=== PATIENT | male | born 1945 | race Caucasian/White ===

== ENCOUNTER 2018-12-20 20:35 | Inpatient (IN) ==
[2018-12-20 21:52] LABS: INR 1.07; PROTIME 14.8 Seconds (11.0-16.0)
[2018-12-20 21:53] LABS: PTT 38.6 Seconds (22.3-41.8)
[2018-12-20] MEDS ORDERED: ROCEPHIN 1 GM in NS 50 ML IV ONE (21:53)
[2018-12-20] MEDS ORDERED: NS 1,000 ML IV ONE ×2 (21:54→22:30)
--- NOTE | 2018-12-20 21:55 | Diag Imaging Result Doc PS360 ---
EXAM: CHEST-1 VIEW 12/20/2018 HISTORY: sob TECHNIQUE: AP portable at 2137 COMMENT: There is alveolar opacity throughout the right lower lobe with possible loculated pleural fluid collections. The heart size and pulmonary vascularity appear to be within normal limits and there are no previous studies. IMPRESSION: Right lower lobe pneumonia and pleural effusion. Electronically signed by Terrell Fuentes 12/20/2018 9:52 PM
[2018-12-20 21:58] LABS: BASO# 0.01 X1000 (0.0-0.2); BASO% 0.1 % (0.0-0.8); HEMATOCRIT 31.3 % (42.0-52.0); LYMPH# 0.51 X1000 (1.2-3.4); LYMPH% 3.4 % (20.5-51.1); MCH 26.6 PG (27-31); MCHC 31.9 g/dL (33-37); MCV 83.2 FL (81-99); MONO% 3.3 % (1.7-9.3); MPV 9.5 FL (7.4-10.4); NEUT# 14.12 X1000 (1.4-6.5); NEUT% 93.2 % (42.2-75.2); PLT 432 X1000 (130-400); RBC 3.76 XMIL (4.7-6.1); RDW 18.2 % (11.5-14.5); WBC 15.14 X1000 (4.8-10.8)
[2018-12-20 22:03] LABS: ALB/GLOB RATIO 0.9; ALBUMIN 3.6 g/dL (3.5-5.0); CREATININE 1.5 mg/dL (0.7-1.2); TOTAL BILIRUBIN 0.5 mg/dL (0.20-1.00); TOTAL PROTEIN 7.6 g/dL (6.3-8.3)
[2018-12-20 22:35] LABS: CK INDEX 0.4 (0.0-2.5); CK-MB 6.9 ng/mL (0.0-5.0)
[2018-12-20] MEDS ORDERED: VANCOMYCIN 1 GM/NS 1 GM/250 ML IVPB IV ONE (23:28)
--- NOTE | 2018-12-21 00:14 | HISTORY AND PHYSICAL ---
PRIMARY CARE PHYSICIAN: Dr. Araujo. CHIEF COMPLAINT: Shortness of breath and cough for 2 days. HISTORY: A 73-year-old male with a history of hypertension, hyperlipidemia, dementia and COPD, resides at [facility]. Was brought to the emergency department due to patient having shortness of breath, coughing and worsening confusion for the past several days. The patient was evaluated in the emergency department. He had imaging done which did show right lower lobe pneumonia with effusion. Due to his presenting symptoms, it was thought that he would need admission for further management. At the time of my examination, he denied any headache, fever, chills, chest pain, hemoptysis, melena, or any weight changes but complained of cough and shortness of breath. PAST MEDICAL HISTORY: Includes hypertension, hyperlipidemia, dementia, COPD. PAST SURGICAL HISTORY: Bilateral knee replacement, left partial pneumonectomy, hernia repair. ALLERGIES: Chantix. CURRENT MEDICATIONS: Include Namenda 10 mg p.o. b.i.d., Aricept 10 mg p.o. daily, Effexor XR 225 mg p.o. daily, Toprol-XL 25 mg p.o. daily, Lipitor 40 mg p.o. at bedtime, lisinopril 20 mg p.o. daily, Topamax 25 mg p.o. b.i.d. SOCIAL HISTORY: He is a former smoker. History of alcohol abuse in the past. History of illicit drug use in the past. FAMILY HISTORY: No history of coronary disease. REVIEW OF SYSTEMS: Fourteen point review of systems is as in HPI. Other systems negative. PHYSICAL EXAMINATION: GENERAL: Cooperative, friendly male. He is resting more comfortably now. VITAL SIGNS: Temperature 101 degrees, pulse 90, respirations 30, blood pressure 111/67. HEENT: Atraumatic, normocephalic. Extraocular movements intact. PERRLA. NECK: No masses. CHEST: Bibasilar rales. CARDIOVASCULAR: Regular rate and rhythm. ABDOMEN: Soft. Positive bowel sounds. EXTREMITIES: No edema. NEURO: He is awake, alert, oriented x1. : No bladder distention. SKIN: Warm. LABORATORIES AND STUDIES: WBCs 15.14, hemoglobin 10.0, hematocrit 31.3, platelets 432,000. Sodium 135, potassium 4.0, chloride 96, CO2 24, BUN is 27, creatinine is 1.5, glucose is 173, plasma lactate is 2.4. ASSESSMENT: A 73-year-old male with a history of hypertension, hyperlipidemia, dementia, chronic obstructive pulmonary disease, presented to the emergency department with several days history of worsening shortness of breath and cough. He was evaluated in the emergency department. He had imaging done which was consistent with pneumonia. Subsequently, he will need admission for further management. 1. Right lower lobe pneumonia. 2. Acute kidney injury. 3. Hypertension. 4. Chronic obstructive pulmonary disease. 5. Dementia. PLAN: 1. We will admit patient to medical floor with telemetry. 2. We will check blood cultures. Start patient on IV antibiotics. 3. Continue gentle hydration. Monitor renal function. 4. Monitor blood pressure closely. 5. Continue with DuoNeb p.r.n. 6. We will restart other home medications. 7. Put patient on DVT prophylaxis SCD. 8. We will continue to follow and reassess and make further recommendation based on patient's clinical course. cc: Merlin Beltran MD
[2018-12-21] MEDS ORDERED: ZOFRAN IV PRN (01:34)
[2018-12-21] MEDS ORDERED: ROCEPHIN 1 GM in NS 50 ML IV SCH (01:34)
[2018-12-21] MEDS ORDERED: ZITHROMAX 500 MG/NS 500 MG/250 ML IVPB IV SCH (01:34)
--- NOTE | 2018-12-21 01:38 | PROVIDER DOCUMENTATION ---
This chart was entered by Lis Burrell Scribe, acting as scribe for Isai Urbina MD. HPI-General Adult - General Chief Complaint: Shortness of Breath Stated Complaint: general Time Seen by Provider: 12/20/18 21:30 Source: family - History of Present Illness -Gen Adult Nature of Presenting Problems: 73 yom presents to ED Daughter by EMS c/o of SOB and hard time ambulating for a few days according to pt daughter and [facility] pt resides.Daughter states pt has seemed off balance since this morning and pt statrted a new med for Parkinsons recently. Pt has a hx of COPD, GERD, Tuberculosis, Dementia. Pt has hx of smoking but quit 6 mnth ago. Review of Systems - Adult - REVIEW OF SYSTEMS - ADULT ROS:: ROS per family Constitutional: reports: see HPI, fever, fatique. denies: chills Respiratory: reports: see HPI, shortness of breath Musculoskeletal: reports: see HPI, muscle weakness Psychiatric: reports: see HPI, other (confused) Past History - Adult - PAST MEDICAL HISTORY-ADULT Review of Records: reports: Old Records Reviewed, Nursing Assessment Review, Medications Reviewed Major Childhood Illnesses: reports: denies history Cardiovascular: reports: denies history Respiratory: reports: COPD, tuberculosis Gastrointestinal: reports: GERD Obstetrical/Gynecological: reports: denies history Genitourinary: reports: denies history Musculoskeletal: reports: denies history Neurological: reports: Parkinson's Endocrine/Immune: reports: denies history Other Conditions: reports: denies history - IMMUNIZATION STATUS Childhood Immunizations: See Nurse Assessment Flu Vaccine: See Nurse Assessment - FAMILY HISTORY Family History: reviewed, not pertinent - SOCIAL HISTORY Smoking: quit greater than 1 year Substance Use: none presently/history of abuse Living Situation: care facility Physical Exam-General - PHYSICAL EXAM-ADULT Initial Vital Signs Reviewed: Yes - CONSTITUTIONAL General Appearance: alert, slow to respond - EYES Eyes: PERRL/EOMI, pink conjunctivae - HEAD, EARS, NOSE, MOUTH & THROAT HENMT: normocephalic/atraumatic. negative: moist mucous membranes - NECK Neck: non-tender, full range of motion, supple, normal inspection. negative: Brudzinski's sign, carotid bruit - RESPIRATORY Respiratory: chest non-tender, decreased breath sounds (right lower side). negative: crackles, rales, rhonchi - CARDIOVASCULAR Cardiovascular: normal peripheral pulses, other (distant heart sounds) - GASTROINTESTINAL (ABDOMEN) Abdominal Exam: normal bowel sounds, non tender, soft. negative: rigid, rebound , tenderness - LYMPHATIC Lymphatic: no adenopathy. negative: axilla node tender, cervical node tenderness - MUSCULOSKELETAL Back Exam: normal inspection, no CVA tenderness, no vertebral tenderness. negative: ecchymosis - SKIN Integumentary: normal color, normal turgor, warm/dry - PSYCHIATRIC Psych/Mental Status: other (alert and oriented to self) Progress - PLAN OF CARE/RESULTS Progress/Plan/Lab Results: Vital Signs - 8 hr 12/20/18 20:56 Temperature 101 F H Pulse Rate 90 Respiratory Rate 30 H Blood Pressure 111/67 O2 Sat by Pulse Oximetry 91 L Orders Category Date Time Status Cardiac Monitoring DIRECTED Care 12/20/18 21:28 Active IV Insertion ORDERED Care 12/20/18 21:28 Completed Notify MD of + Sepsis Screen NOW Care 12/20/18 21:28 Active Notify Physician As Ordered Care 12/20/18 21:28 Active CHEST-1 VIEW [RAD] Stat Exams 12/20/18 21:28 Ordered BLOOD CULTURE [BLDCUL] Stat Lab 12/20/18 21:33 Ordered CBC WITH DIFF [HEME] Stat Lab 12/20/18 21:26 Received CK PROFILE [SP CHEM] Stat Lab 12/20/18 21:26 Received COMPREHENSIVE METABOLIC PANEL [CHEM] Stat Lab 12/20/18 21:26 Received Flu Swab [INFLUENZA SCREEN A/B] Stat Lab 12/20/18 21:27 Uncollected LACTATE, PLASMA [CHEM] Lab 12/20/18 21:34 Ordered LACTATE, PLASMA [CHEM] Lab 12/21/18 00:30 Uncollected LACTATE, PLASMA [CHEM] Lab 12/21/18 03:30 Uncollected PROTIME WITH INR [COAG] Stat Lab 12/20/18 21:26 Received PTT [COAG] Stat Lab 12/20/18 21:26 Received TROPONIN T Stat Lab 12/20/18 21:26 Received URINALYSIS W/POSS RFLX CULT [URINALYSIS] Stat Lab 12/20/18 21:28 Uncollected Oxygen Device Stat Oth 12/20/18 21:28 Completed Result Diagrams: 12/20/18 21:26 12/20/18 21:26 - EKG 1 Time of EKG reading by physician:: 22:03 EKG Read and Signed by:: Isai Chen EKG Interpretation (*Must complete 3 of following elements*): Abnormal Rate: 92 Rhythm: sinus QRS: LVH - CONSULTS/PCP/HOSPITALIST Notification #1 *Consult/PCP/Hospitalist*: Dr. Merlin beltran Time Discussed: 22:19 Consult Disposition: Admit (Hx, PE, DX discussed with Dr. Beltran. accepted.) Departure - Departure Date of Disposition Decision: 12/20/18 Time of Disposition Decision: 22:15 DIAGNOSIS: Pneumonia Qualifiers: Pneumonia type: due to unspecified organism Laterality: right Lung location: lower lobe of lung Qualified Code(s): J18.1 - Lobar pneumonia, unspecified organism Sepsis Qualifiers: Sepsis type: sepsis due to unspecified organism Qualified Code(s): A41.9 - Sepsis, unspecified organism Altered mental status Qualifiers: Altered mental status type: unspecified Qualified Code(s): R41.82 - Altered mental status, unspecified Disposition: ADMITTED INPATIENT 09 Certified Medical Emergency: Emergent Condition: Serious Referrals and Follow-Ups: Trisha Araujo MD [Primary Care Provider] - - Critical Care Note This patient required my direct & personal management of CC.: No Attestation - Physician/ ADRIANE Attestation Patient care was provided by Advanced Practice Provider:: No The physician spent face to face time with patient:: Yes Advanced Practice Provider documentation review:: Supervising physician onsite and consulted in the evaluation and care of this patient. The physician did have a face to face encounter with the patient. This chart was documented by the indicated scribe, (Lis Burrell Scribe) and accurately reflects the services I performed and decisions made by me, Isai Urbina MD, as attested by the provider's signature.
[2018-12-21] MEDS: NS 1,000 ML IV SCH ×2 (02:20→21:17)
[2018-12-21] MEDS: DUONEB (A & A) INH SCH ×6 (04:29→23:42)
[2018-12-21 04:58] LABS: BASO# 0.01 X1000 (0.0-0.2); BASO% 0.1 % (0.0-0.8); HEMATOCRIT 30.3 % (42.0-52.0); HEMOGLOBIN 9.5 g/dL (14.0-18.0); IMM GRAN# 0.04 X1000 (0.0-0.04); IMM GRAN% 0.3 % (0.0-0.5); LYMPH# 0.71 X1000 (1.2-3.4); LYMPH% 4.9 % (20.5-51.1); MCH 26.2 PG (27-31); MCHC 31.4 g/dL (33-37); MCV 83.5 FL (81-99); MONO# 0.61 X1000 (0.11-0.59); MONO% 4.2 % (1.7-9.3); MPV 8.9 FL (7.4-10.4); NEUT# 12.99 X1000 (1.4-6.5); NEUT% 90.5 % (42.2-75.2); PLT 395 X1000 (130-400); RBC 3.63 XMIL (4.7-6.1); RDW 18.2 % (11.5-14.5); WBC 14.36 X1000 (4.8-10.8)
[2018-12-21 05:19] LABS: CALCIUM 7.4 mg/dL (8.8-10.2); CREATININE 1.2 mg/dL (0.7-1.2); POTASSIUM 3.4 mmol/L (3.5-5.1)
[2018-12-21 05:26] LABS: LYMPHS 5 % (21-51); MONO 3 % (1-9); SEGS 92 % (42-75)
--- NOTE | 2018-12-21 06:19 | Diag Imaging Result Doc PS360 ---
CT HEAD W/O CONTRAST - 12/20/2018 INDICATION: AMS COMPARISON: None FINDINGS: The ventricles and sulci are normal in size and contour. No intracranial mass or hemorrhage. The skull is intact. The sinuses mastoids and middle ears are clear. IMPRESSION: Negative exam. This exam was performed using automated exposure control, adjustment of mA or kV according to patient size, and/or use of iterative reconstruction technique Electronically signed by Devang Gaona 12/21/2018 6:16 AM
--- NOTE | 2018-12-21 08:51 | EKG Report ---
Test Performed on : 12/20/2018 9:15:44 PM Test Reason : ED. NO EKG ORDER FOR MUSE Blood Pressure : / mmHG Vent. Rate : 092 BPM Atrial Rate : 092 BPM P-R Int : 196 ms QRS Dur : 082 ms QT Int : 360 ms P-R-T Axes : 064 033 029 degrees QTc Int : 445 ms Normal sinus rhythm. Voltage criteria for left ventricular hypertrophy Abnormal ECG No previous ECGs available Unconfirmed Result
[2018-12-21] MEDS: EFFEXOR XR PO SCH (08:58)
[2018-12-21] MEDS: ARICEPT PO SCH (08:58)
[2018-12-21] MEDS: PRINIVIL PO SCH (08:59)
[2018-12-21] MEDS: TOPROL XL PO SCH (08:59)
[2018-12-21] MEDS: NAMENDA PO SCH ×2 (08:59→20:17)
[2018-12-21] MEDS: THERA M PLUS PO SCH (08:59)
[2018-12-21] MEDS: TOPAMAX PO SCH ×2 (08:59→20:17)
[2018-12-21 11:52] LABS: URINE SOURCE CATH
[2018-12-21 11:56] LABS: BILIRUBIN URINE NEGATIVE (NEGATIVE); BLOOD URINE NEGATIVE (NEGATIVE); COLOR YELLOW; GLUCOSE URINE NEGATIVE (NEGATIVE); KETONE URINE NEGATIVE (NEGATIVE); LEUKOCYTES URINE NEGATIVE (NEGATIVE); NITRITE URINE NEGATIVE (NEGATIVE); PH URINE 5.5; PROTEIN URINE 30 mg/dL (NEGATIVE); SP GRAVITY URINE 1.017; TURBIDITY URINE CLEAR (CLEAR); UROBILINOGEN URINE NORMAL (NORMAL)
[2018-12-21 11:57] LABS: UR EPITHELIAL CELLS <10 /HPF (<10); URINE BACTERIA NEGATIVE /HPF; URINE RBC <10 /HPF (<10); URINE WBC <10 /HPF (<10)
[2018-12-21 12:55] LABS: AGAP 12; ALB/GLOB RATIO 0.7; ALBUMIN 2.8 g/dL (3.5-5.0); ALKALINE PHOSPHATASE 77 U/L (32-122); BUN 22 mg/dL (8-22); CALCIUM 8.8 mg/dL (8.8-10.2); CHLORIDE 101 mmol/L (98-107); CK PROFILE 1131 U/L (24-204); COSMO 277; CREATININE 1.1 mg/dL (0.7-1.2); ESTIMATED GFR > 60; GLUCOSE 199 mg/dL (70-104); GOT 39 U/L (10-34); GPT 14 U/L (10-44); POTASSIUM 3.4 mmol/L (3.5-5.1); SODIUM 134 mmol/L (136-145); TCO2 21 mmol/L (25-35); TOTAL BILIRUBIN 0.43 mg/dL (0.20-1.00); TOTAL PROTEIN 6.6 g/dL (6.3-8.3)
[2018-12-21] MEDS ORDERED: TYLENOL PO SCH (13:00)
[2018-12-21 13:08] LABS: CK INDEX 0.3 (0.0-2.5); CK-MB 3.22 ng/mL (0.0-5.0); INR 1.24; PROTIME 16.6 Seconds (11.0-16.0)
[2018-12-21 13:09] LABS: PTT 37.3 Seconds (22.3-41.8)
[2018-12-21] MEDS ORDERED: ZYVOX 600 MG/D5W 600 MG/300 ML IVPB IV ONE (13:12)
[2018-12-21 13:18] LABS: BASO# 0.01 X1000 (0.0-0.2); BASO% 0.1 % (0.0-0.8); HEMOGLOBIN 10.1 g/dL (14.0-18.0); IMM GRAN# 0.03 X1000 (0.0-0.04); IMM GRAN% 0.2 % (0.0-0.5); LYMPH# 0.43 X1000 (1.2-3.4); LYMPH% 3.3 % (20.5-51.1); MCH 26.1 PG (27-31); MCHC 31.6 g/dL (33-37); MCV 82.7 FL (81-99); MONO# 0.56 X1000 (0.11-0.59); MONO% 4.3 % (1.7-9.3); MPV 9.4 FL (7.4-10.4); NEUT# 12.13 X1000 (1.4-6.5); NEUT% 92.1 % (42.2-75.2); PLT 463 X1000 (130-400); RBC 3.87 XMIL (4.7-6.1); RDW 18.1 % (11.5-14.5); WBC 13.16 X1000 (4.8-10.8)
--- NOTE | 2018-12-21 13:29 | PROGRESS NOTE ---
DATE: 12/21/2018 SUBJECTIVE: The patient is resting in bed, not in any obvious distress. OBJECTIVE: Vital Signs: Temperature is 99.7 degrees, pulse is 110, respiratory rate is 27, blood pressure is 160/93, O2 saturation is 88%. HEENT: Head is atraumatic and normocephalic. Cardiovascular System: S1 and S2. Respiratory System: He has evidence of good air entry bilaterally. Abdomen: Soft, nontender. No masses felt. Extremities: No evidence of edema. Central Nervous System: No obvious focal deficits noted. Labs: WBCs 14.36, hematocrit is 30.3, platelet count of 395,000. Sodium is 134, potassium is 3.4, chloride is 101, bicarb 21, BUN is 22, creatinine 1.1. X-ray of the chest shows right lower lobe pneumonia and pleural effusion. ASSESSMENT AND PLAN: 1. Healthcare-associated pneumonia. Continue antibiotics. Follow up on sputum as well as blood cultures. 2. Acute kidney injury, resolved. 3. Chronic obstructive pulmonary disease. Maintain the patient on nebulized bronchodilators. 4. Hypertension. Continue current antihypertensive regimen. 5. Dementia. Aware. Continue appropriate medications. 6. Deep vein thrombosis prophylaxis. Sequential compression devices. 7. Gastrointestinal prophylaxis. Proton pump inhibitor. cc: Gio Adams MD
[2018-12-21 13:34] LABS: BANDS 10 % (0-1); LYMPHS 4 % (21-51); MONO 6 % (1-9); SEGS 80 % (42-75)
--- NOTE | 2018-12-21 13:50 | Diag Imaging Result Doc PS360 ---
CHEST-1 VIEW - 12/21/2018 INDICATION: Sepsis Protocol COMPARISON: 12/20/2018 FINDINGS: There has been enlargement in the right pleural effusion which now occupies about one third of the right hemithorax. This appears to be at the lateral right base. There is overall fairly similar infiltrate throughout the right lung diffusely. No pneumothorax. The left lung remains clear with no pleural effusion. Heart size and pulmonary vascularity is normal. IMPRESSION: 1. Significant worsening in the right pleural effusion. 2. Stable multilobar infiltrate throughout the right lung. Electronically signed by Devang Gaona 12/21/2018 1:48 PM
[2018-12-21] MEDS: ZOSYN 3.375 GM in NS 50 ML IV SCH ×2 (13:53→20:17)
[2018-12-21] MEDS: LEVAQUIN 500 MG/D5W 500 MG/100 ML IVPB IV SCH (14:25)
[2018-12-21] MEDS: LIPITOR PO SCH (20:17)
[2018-12-22] MEDS: NS 1,000 ML IV SCH (01:52)
[2018-12-22] MEDS: ZOSYN 3.375 GM in NS 50 ML IV SCH ×4 (01:53→21:25)
[2018-12-22] MEDS: DUONEB (A & A) INH SCH ×6 (04:20→23:20)
[2018-12-22] MEDS: EFFEXOR XR PO SCH (10:00)
[2018-12-22] MEDS: NAMENDA PO SCH ×2 (10:21→21:26)
[2018-12-22] MEDS: THERA M PLUS PO SCH (10:21)
[2018-12-22] MEDS: ARICEPT PO SCH (10:23)
[2018-12-22] MEDS: PRINIVIL PO SCH (10:23)
[2018-12-22] MEDS: TOPROL XL PO SCH (10:23)
[2018-12-22] MEDS: TOPAMAX PO SCH ×2 (10:37→21:26)
[2018-12-22] MEDS ORDERED: VANCOMYCIN IV PER PHARMACY MISC SCH (14:00)
[2018-12-22] MEDS: LEVAQUIN 500 MG/D5W 500 MG/100 ML IVPB IV SCH (14:05)
[2018-12-22] MEDS ORDERED: KLOR-CON PO ONE (14:07)
--- NOTE | 2018-12-22 14:27 | PROGRESS NOTE ---
DATE: 12/22/2018 SUBJECTIVE: The patient is resting in bed. His dyspneic at rest. OBJECTIVE: Vital signs: Temperature 98 degrees, pulse 109, respiratory rate 22, blood pressure 143/74, oxygen saturation is 91%. HEENT: He is atraumatic, normocephalic. Cardiovasculars system: S1, S2. Respiratory system: Good air entry bilaterally. No rales or rhonchi noted. Abdomen: Soft, nontender. No masses felt. Extremities: No evidence of edema. Central nervous system: No obvious focal deficits noted. LABS: Pending. ASSESSMENT AND PLAN: 1. Healthcare-associated pneumonia. The patient is currently on Zosyn, Levaquin, as well as a vancomycin. Blood cultures have been negative so far. We also requested a sputum culture. Maintain patient on oxygen as well as nebulized bronchodilators. 2. Chronic obstructive pulmonary disease. Continue nebulized bronchodilators. 3. Acute kidney injury. Resolved. 4. Hypokalemia. Replace potassium level. Check magnesium level. 5. Hypertension. Continue current antihypertensive regimen. 6. Dementia. Continue donepezil as well as Namenda. 7. Deep vein thrombosis prophylaxis. SCDs. 8. Gastrointestinal prophylaxis. PPI. cc: Gio Adams MD
[2018-12-22 14:30] LABS: ALLEN TEST YES; BLOOD TYPE ARTERIAL; HCO3-(ACT) 23.3 mmoll (20.0-26.0); METHB 1.4 % (0.0-1.5); O2(CT) 14.2 mL/dL (15.0-23.0); O2HB 92.4 % (95.0-99.0); PCO2(98.6) 35 mmHg (35-45); PO2(98.6) 68 mmHg (60-100); SAMPLE BLOOD; SAO2 95.7 % (95.0-100.0); THB 10.9 g/dL (11.5-17.4); pH(98.6) 7.41 (7.35-7.45)
[2018-12-22 14:31] LABS: MODALITY VENTIMASK
[2018-12-22] MEDS ORDERED: VANCOMYCIN 2,000 MG in NS 500 ML IV ONE (15:00)
[2018-12-22 15:06] LABS: BASO# 0.01 X1000 (0.0-0.2); BASO% 0.1 % (0.0-0.8); HEMATOCRIT 32.2 % (42.0-52.0); HEMOGLOBIN 10.2 g/dL (14.0-18.0); IMM GRAN# 0.06 X1000 (0.0-0.04); IMM GRAN% 0.3 % (0.0-0.5); LYMPH% 4.5 % (20.5-51.1); MCH 26.4 PG (27-31); MCHC 31.7 g/dL (33-37); MCV 83.2 FL (81-99); MONO% 6.2 % (1.7-9.3); MPV 9.4 FL (7.4-10.4); NEUT# 15.91 X1000 (1.4-6.5); NEUT% 88.9 % (42.2-75.2); PLT 501 X1000 (130-400); RBC 3.87 XMIL (4.7-6.1); RDW 18.2 % (11.5-14.5); WBC 17.88 X1000 (4.8-10.8)
[2018-12-22 15:21] LABS: AGAP 10; BUN 22 mg/dL (8-22); CALCIUM 9.1 mg/dL (8.8-10.2); CHLORIDE 100 mmol/L (98-107); COSMO 270; CREATININE 0.9 mg/dL (0.7-1.2); ESTIMATED GFR > 60; GLUCOSE 162 mg/dL (70-104); POTASSIUM 3.3 mmol/L (3.5-5.1); SODIUM 131 mmol/L (136-145); TCO2 21 mmol/L (25-35)
--- NOTE | 2018-12-22 16:02 | Diag Imaging Result Doc PS360 ---
EXAM: CT THORAX W/CONTRAST 12/22/2018 HISTORY: pneumonia TECHNIQUE: This exam was performed using automated exposure control, adjustment of mA or kV according to patient size, and/or use of iterative reconstruction technique. COMMENT: There are no previous CT examinations available for comparison. There is a large right pleural effusion which appears to be loculated. There are a few small air bubble seen posteriorly which may be in the pleural space. There is a smaller pleural effusion on the left which may also be partially loculated. There are some mediastinal nodes none of which exceed 16 mm in diameter. There are what appear to be enhancing nodes in the right epiphrenic region one of which measures over 11 mm. There are some degenerative disc changes in the thoracic spine. There is a pericardial effusion measuring 6 mm anteriorly. There are some cortical cysts in the kidneys. There is a nodule in the medial lobe of the left adrenal gland measuring 18 mm x 17 mm. There is a centrally necrotic appearing lesion in the right hepatic lobe measuring over 8.5 cm in diameter. This is largely hypodense compared to the remainder of the enhancing hepatic parenchyma. The possibility of an abscess or necrotic tumor is suggested. There is a smaller lucency visible in the left hepatic lobe which may represent a cyst and measures less than 7 mm. There are emphysematous changes demonstrated in the visualized portion of the lung parenchyma. There is some apparent fibrotic or atelectatic changes particularly due to compression of the right lower lobe. There is some groundglass opacity present in the anterior inferior right upper lobe and in the dependent portions of the left lower lobe. IMPRESSION: Pleural effusion bilaterally, particularly on the right where there is considerable loculation. Hepatic abscess versus necrotic tumor. Compressive atelectasis. Questionable pneumonia. Electronically signed by Terrell Fuentes 12/22/2018 4:00 PM
[2018-12-22 17:17] LABS: BANDS 8 % (0-1); LYMPHS 4 % (21-51); MONO 3 % (1-9); SEGS 85 % (42-75)
[2018-12-22] MEDS: POTASSIUM CHLORIDE 20 MEQ/SWI 20 MEQ/100 ML IVPB IV SCH ×2 (17:56→22:28)
[2018-12-22] MEDS: LAMICTAL PO SCH ×2 (21:25→21:28)
[2018-12-22] MEDS: LIPITOR PO SCH (21:26)
--- NOTE | 2018-12-22 21:34 | Diag Imaging Result Doc PS360 ---
EXAM: CT ABD/PELVIS W/IV CONT ONLY HISTORY: Hepatic lession TECHNIQUE: CT abdomen and pelvis with intravenous contrast COMPARISON: Chest performed earlier in the day FINDINGS: The appearance of the lower chest is unchanged from the exam performed earlier. There is a large hypodense area in the right lobe of the liver measuring at least 6.5 x 7.0 x 6.0 cm. There is a thick area around this which is less dense than the central portion. No air within this. There is fatty infiltration of the liver. No splenomegaly. Normal pancreas and adrenal glands. There are multiple small bilateral renal cysts. No hydronephrosis. Severe atherosclerosis. Mild dilatation to the distal abdominal aorta with a maximum diameter of 2.8 cm. There is stool throughout the colon. A large amount stool is found in the rectum. No inflammation about the cecum. No ascites. Urinary bladder is distended and is normal. Prostate is not enlarged. Mild scoliosis with degenerative spine changes. IMPRESSION: 1.Large right hepatic lesion which may be an abscess 2.Severe atherosclerosis 3.Constipation and possible fecal impaction This exam was performed using automated exposure control, adjustment of mA or kV according to patient size, and/or use of iterative reconstruction technique. Electronically signed by Alberto Rm 12/22/2018 9:32 PM
[2018-12-23] MEDS ORDERED: NS 1,000 ML ONE (01:51)
[2018-12-23 02:30] LABS: ALLEN TEST YES; BE -5.1 mmoll (-3.0-3.0); BLOOD TYPE ARTERIAL; HCO3-(ACT) 20.9 mmoll (20.0-26.0); METHB 0.8 % (0.0-1.5); O2(CT) 13.1 mL/dL (15.0-23.0); O2HB 94.5 % (95.0-99.0); PCO2(98.6) 35 mmHg (35-45); PO2(98.6) 74 mmHg (60-100); SAMPLE BLOOD; SAO2 97.3 % (95.0-100.0); THB 9.8 g/dL (11.5-17.4); pH(98.6) 7.36 (7.35-7.45)
[2018-12-23 02:34] LABS: MODALITY VENTIMASK
[2018-12-23] MEDS: ZOSYN 3.375 GM in NS 50 ML IV SCH ×4 (02:41→21:22)
[2018-12-23] MEDS ORDERED: NS 500 ML IV ONE (02:54)
[2018-12-23] MEDS: DUONEB (A & A) INH SCH ×6 (03:20→23:25)
--- NOTE | 2018-12-23 06:39 | Diag Imaging Result Doc PS360 ---
EXAM: CHEST-1 VIEW HISTORY: pneumonia TECHNIQUE: Portable chest single view COMPARISON: Two 12/21/2018 FINDINGS: Partial opacification of the right hemithorax. There appear to be loculated fluid collections in the right hemithorax. The right lung is less well expanded. Heart is borderline mildly prominent. There is atelectasis in the left base versus a small infiltrate. IMPRESSION: Mild interval worsening. Electronically signed by Alberto Rm 12/23/2018 6:36 AM
[2018-12-23 07:22] LABS: BASO# 0.01 X1000 (0.0-0.2); HEMATOCRIT 32.9 % (42.0-52.0); HEMOGLOBIN 10.2 g/dL (14.0-18.0); IMM GRAN# 0.08 X1000 (0.0-0.04); IMM GRAN% 0.4 % (0.0-0.5); LYMPH# 0.88 X1000 (1.2-3.4); LYMPH% 3.9 % (20.5-51.1); MCV 83.9 FL (81-99); MONO# 1.14 X1000 (0.11-0.59); MPV 9.4 FL (7.4-10.4); NEUT# 20.74 X1000 (1.4-6.5); NEUT% 90.7 % (42.2-75.2); PLT 557 X1000 (130-400); RBC 3.92 XMIL (4.7-6.1); RDW 18.4 % (11.5-14.5); WBC 22.85 X1000 (4.8-10.8)
[2018-12-23 07:28] LABS: AGAP 10; ALB/GLOB RATIO 0.6; ALBUMIN 2.4 g/dL (3.5-5.0); ALKALINE PHOSPHATASE 91 U/L (32-122); BUN 23 mg/dL (8-22); CALCIUM 9.2 mg/dL (8.8-10.2); CHLORIDE 106 mmol/L (98-107); COSMO 283; CREATININE 0.8 mg/dL (0.7-1.2); ESTIMATED GFR > 60; GLUCOSE 159 mg/dL (70-104); GOT 32 U/L (10-34); GPT 22 U/L (10-44); POTASSIUM 3.7 mmol/L (3.5-5.1); SODIUM 138 mmol/L (136-145); TCO2 22 mmol/L (25-35); TOTAL BILIRUBIN 0.34 mg/dL (0.20-1.00); TOTAL PROTEIN 6.5 g/dL (6.3-8.3)
[2018-12-23 07:41] LABS: LYMPHS 4 % (21-51); MONO 6 % (1-9); SEGS 90 % (42-75)
[2018-12-23] MEDS: NAMENDA PO SCH ×2 (10:00→21:22)
[2018-12-23] MEDS: PATIENT'S OWN MED PO SCH ×2 (10:17→11:25)
[2018-12-23] MEDS: PRINIVIL PO SCH (10:20)
[2018-12-23] MEDS: ARICEPT PO SCH (10:20)
[2018-12-23] MEDS: TOPAMAX PO SCH ×2 (10:20→21:20)
[2018-12-23] MEDS: THERA M PLUS PO SCH (10:20)
[2018-12-23] MEDS: TOPROL XL PO SCH (10:21)
[2018-12-23] MEDS: EFFEXOR XR PO SCH (10:22)
[2018-12-23] MEDS ORDERED: SOLU-MEDROL IV STA (11:56)
[2018-12-23] MEDS ORDERED: ALBUTEROL NEB INH ONE (12:02)
[2018-12-23] MEDS: LEVAQUIN 500 MG/D5W 500 MG/100 ML IVPB IV SCH (13:11)
--- NOTE | 2018-12-23 13:53 | PROGRESS NOTE ---
DATE: 12/23/2018 SUBJECTIVE: The patient is resting in bed, and severely dyspneic at rest. He is confused. OBJECTIVE: Vital signs: Temperature 98.3 degrees, pulse 150, respirations 30, and blood pressure 121/83. Oxygen saturation is 93%. HEENT: Atraumatic, normocephalic. Eyes anicteric. No significant oral lesions noted. He has an oxygen mask in place. Neck: No lymphadenopathy or thyromegaly. Cardiovascular: S1, S2. Respiratory: Occasional rhonchi noted in the lung estrada. Abdomen: Soft, nontender. No masses felt. Extremities: No evidence of edema. Central nervous system: The patient is awake, but confused. LABORATORY DATA: WBC is 22.85. Hematocrit is 32.9 with a platelet count of 557 ,000. ABG is 7.36/35/74/97.3%. Chemistry: Sodium is 138, potassium 3.7, chloride 16, bicarb 22, BUN is 23 and creatinine 0.8. Chest CT shows evidence of pleural effusion bilaterally particularly on the right. We discussed possible loculation. Hepatic abscess versus necrotic tumor , and also compressive atelectasis questionable pneumonia. CT scan of the abdomen and pelvis shows evidence of a large right hepatic lesion which may be an abscess. There is also constipation as well as possible fecal impaction. X-ray of the chest shows partial opacification of the right hemithorax. There appears to be loculated fluid collection in the right hemithorax. The right lung is less well expanded. There is atelectasis in the left base versus small infiltrate. ASSESSMENT AND PLAN: 1. Acute respiratory failure secondary to possible pneumonia with parapneumonic effusion. Today's chest x-ray shows evidence of partial opacification of the right hemithorax, and this was thought to be a loculated fluid collection. There is also atelectasis in the left base with small infiltrates. The patient has been placed on BiPAP with oxygen, and will be transferred to the intensive care unit and may possibly get intubated. Pulmonary is currently on board. He is currently receiving antibiotics for health-care associated pneumonia. ID has been consulted for antibiotic management. 2. COPD. Maintain patient on nebulized bronchodilators. Also, maintain patient on steroids as well. 3. Possible hepatic abscess. CT scan of the abdomen and pelvis shows evidence of large right hepatic lesion which may be an abscess. I have consulted both ID as well as surgery with regards to his lesion. The patient is currently on antibiotics. 4. Hypertension. Continue current regimen. 5. Tachycardia. We will get an EKG and also get cardiac enzymes. Check thyroid function test. Consult with Cardiology. 6. Dementia. Continue current treatment. 7. Deep vein thrombosis prophylaxis. Sequential compression devices. 8. Gastrointestinal prophylaxis. Proton pump inhibitor. DISCUSSION: This patient seemed to have worsening medical condition. He probably does have pneumonia in his right lung which is complicated with pleural effusion which is now currently loculated. He is currently on antibiotics. Clinically, he seems to be deteriorating. We have placed him on BiPAP, and he can be transferred to the intensive care unit as he may possibly end up being intubated. The pulmonary team is on board. In addition, he had the lesion in the liver which he has described as a possible hepatic abscess. We will continue antibiotics. I have consulted with the surgical team. We will also get opinion of interventional radiology as well. The patient is critically ill. cc: Gio Adams MD MTDD
[2018-12-23 14:09] LABS: ALLEN TEST YES; BE -4.8 mmoll (-3.0-3.0); BLOOD TYPE ARTERIAL; HCO3-(ACT) 21.1 mmoll (20.0-26.0); METHB 0.9 % (0.0-1.5); O2(CT) 14.2 mL/dL (15.0-23.0); O2HB 94.8 % (95.0-99.0); PCO2(98.6) 32 mmHg (35-45); PO2(98.6) 74 mmHg (60-100); SAMPLE BLOOD; SAO2 97.1 % (95.0-100.0); THB 10.6 g/dL (11.5-17.4); pH(98.6) 7.39 (7.35-7.45)
[2018-12-23 14:10] LABS: MODALITY BI PAP
[2018-12-23] MEDS ORDERED: VANCOMYCIN 1,750 MG in NS 500 ML IV SCH (16:00)
[2018-12-23] MEDS ORDERED: VANCOMYCIN 2,200 MG in NS 500 ML IV SCH (16:00)
[2018-12-23] MEDS ORDERED: VANCOMYCIN 2,000 MG in NS 500 ML IV SCH (16:00)
[2018-12-23] MEDS: ZYVOX 600 MG/D5W 600 MG/300 ML IVPB SCH (17:57)
--- NOTE | 2018-12-23 18:25 | EKG Report ---
Test Performed on : 12/23/2018 2:21:17 PM Test Reason : tachycardia Blood Pressure : / mmHG Vent. Rate : 117 BPM Atrial Rate : 119 BPM P-R Int : 000 ms QRS Dur : 102 ms QT Int : 386 ms P-R-T Axes : 000 068 118 degrees QTc Int : 538 ms Normal sinus rhythm. with occasional premature ventricular complexes. Septal infarct , age undetermined Prolonged QT Abnormal ECG When compared with ECG of 20-DEC-2018 21:15, (Unconfirmed) Nonspecific T wave abnormality, improved in Inferior leads T wave inversion now evident in Lateral leads Confirmed by Jin Marroquin MD ([id number]) on 12/23/2018 9:23:31 PM
--- NOTE | 2018-12-23 19:32 | INFECTIOUS DISEASE CONSULT REP ---
DATE: 12/23/2018 CONCLUSION: The patient is admitted to the hospital. Appears to have a pneumonia with pleural effusion. He also has a liver lesion that could be a liver abscess. I have talked to the patient's daughter and she tells me that the patient had TB and was treated for it in [place]. In the differential of the patient's pneumonia and possible liver abscess, tuberculosis should be considered. RECOMMENDATIONS: I agree with treating the patient with Zosyn. I have discontinued vancomycin and put the patient on Zyvox. I have also discontinued Levaquin. I agree with having a thoracentesis performed. Also, I discussed with the radiologist and the surgery consult which is Dr. So about doing a aspirate of the liver lesion. DISCUSSION: The patient is unable provide a history. I did get some history from the patient's daughter. Also, I have got information in the computer. The patient initially was admitted because of shortness of breath and cough. His CBC shows a white count of 22,850, hemoglobin 10.2 and platelet count 557,000. Creatinine 0.8, GFR is greater than 60. CK is 1812. Urinalysis showed no white cells or bacteria. Blood cultures and swab for influenza are negative. Chest x- ray shows right-sided opacification, left lower lobe infiltrate/atelectasis. CT scan of the abdomen and pelvis shows a large right hepatic mass, which could be an abscess. Also shows patient has constipation and fecal impaction. PAST MEDICAL HISTORY: Positive for hypertension, hyperlipidemia, dementia and COPD. The patient's daughter told me that the patient also has Parkinson disease. She also told me that the patient is a recovering alcoholic, drug abuser, and cigarette smoker. PAST SURGICAL HISTORY: Positive for bilateral knee replacements, left partial pneumonectomy and hernia repair. INFECTIOUS DISEASE HISTORY: As mentioned above, the patient had tuberculosis and was treated for it in [place]. DRUG ALLERGIES: Chantix is the only one. CURRENT MEDICATIONS: Include Namenda, Aricept, Effexor, Toprol, Lipitor, lisinopril and Topamax. SOCIAL HISTORY: The patient as mentioned above is a former smoker and abuser of alcohol. He also had a history of illicit drug use. FAMILY HISTORY: There was no history of coronary artery disease. REVIEW OF SYSTEMS: Unable to be obtained. PHYSICAL EXAMINATION: Vital Signs: Temperature is 98.4 degrees, pulse 89, respirations 27, blood pressure 118/75. General: This is a chronically ill-appearing elderly male. He is in no acute distress. Head, eyes, ears, nose, and throat: Patient is wearing a BiPAP mask. He did not appear to have any drainage from his nose or the ears. Neck: No meningismus. Lungs: There were diminished breath sounds on the right side. There were breath sounds present on the left side. Abdomen: Soft and nontender. Neurologic: Patient is lethargic. He did not follow request to move his extremities. There was no tremor. Integument: No rash noted. Thank you for the consult. cc: Ti Feldman MD
[2018-12-23] MEDS: LIPITOR PO SCH (21:20)
[2018-12-23] MEDS: SOLU-MEDROL IV SCH (21:20)
[2018-12-23] MEDS: LAMICTAL PO SCH (21:20)
--- NOTE | 2018-12-23 21:46 | CONSULTATION ---
DATE OF CONSULTATION: 12/23/2018 REQUESTING PROVIDER: Dr. Gio Adams. REASON FOR CONSULTATION: Pleural effusion. HISTORY OF PRESENT ILLNESS: This is a 74-year-old male with medical history of COPD, tuberculosis, hypertension, hyperlipidemia, gastroesophageal reflux disease, dementia, Parkinson disease, tobacco abuse, alcohol abuse and illicit drug use. He was brought to the ER on 12/20/2018 with shortness of breath, coughing and worsening confusion for the past several days. He was found to have right lower lobe pneumonia with pleural effusion and acute kidney injury. He has been admitted for further evaluation and management. The patient's respiratory status is declining and he has been transferred to the ICU this afternoon. At the time of my exam, the patient is on BiPAP with his daughter at the bedside and all my questions were answered by the patient's daughter. She reports the patient was diagnosed with lung cancer back to more than 10 years ago in [place] and there he underwent left partial pneumonectomy, but the pathology eventually turned out that he had tuberculosis rather than lung cancer. The patient lives in [facility] before hospital admission. PAST MEDICAL AND SURGICAL HISTORY: 1. COPD. 2. Tuberculosis status post left partial pneumonectomy. 3. Hypertension. 4. Hyperlipidemia. 5. Gastroesophageal reflux disease. 6. Dementia 7. Parkinson disease. 8. History of tobacco abuse, an over [id number] smoking history. 9. History of alcohol abuse. 10. History of illicit drug use. 11. Bilateral knee replacement. 12. Hernia repair. SOCIAL HISTORY: The patient lives in an assisted living. He has a history of tobacco, alcohol and illicit drug use. He quit smoking half a year ago and used to smoke up to one pack per day for close to 60 years. FAMILY HISTORY: No history of cancer or coronary disease. ALLERGIES: Varenicline REVIEW OF SYSTEMS: Unable to be obtained. PHYSICAL EXAMINATION: Vital Signs: Temperature 98.4, blood pressure 118/75, pulse 103, respiratory rate 25, oxygen saturation 94% on BiPAP with FiO2 50% and pressure 15/6. General: Chronically ill appealing, lying in bed with hands holding the facial mask. No acute distress noted. He is in bedpan at this time. HEENT: Atraumatic. Trachea midline. Respiratory: Chest expansion equal bilaterally. Diminished breathing sounds on the right base; otherwise, clear to auscultation. Cardiovascular: Regular rate and rhythm, without murmur noted. Gastrointestinal: Bowel sounds normoactive in all 4 quadrants. Nontender, nondistended. Extremities: No pedal edema. No cyanosis. No clubbing. Dorsalis pedis 1+ bilaterally. Neurologic: Patient is awake and alert, but he apparently has hard time to answer my questions with BiPAP on. He will shake or nod his head to answer simple questions. He is not following commands. IMAGING DATA: Chest x-ray showed mild interval worsening with loculated fluid collections in the right hemithorax and atelectasis versus small infiltrate in the left base. LAB DATA: White blood cell 22.85, hemoglobin 10.2, hematocrit 32.9, platelet 557,000. Sodium 138, potassium 3.7, chloride 106, carbon dioxide 22, BUN 23, creatinine 0.8, glucose 158. ABG: PH 7.39, pCO2 32, PO2 74, HC03 21.1, base excess -4.8 and oxyhemoglobin 94.8. ASSESSMENT: This is a 73-year-old male with medical history of COPD, tuberculosis status post left partial pneumonectomy, hypertension, hyperlipidemia, gastroesophageal reflux disease, dementia, Parkinson disease, tobacco abuse, alcohol abuse and illicit drug use. He has been admitted since 12/20/2018 with right lower lobe pneumonia, considerable loculated pleural effusion and acute kidney injury. He has been transferred to the ICU this afternoon for declining respiratory status. 1. Acute hypoxemic respiratory failure 2. Right lower lobe pneumonia. 3. Bilateral pleural effusions with considerable loculation on the right. 4. Worsening shortness of breath. 5. Large right herpetic lesion which may be an abscess. 6. Constipation, with possible fecal impaction. PLAN: 1. Try thoracentesis first. If not operable, may require chest tube placement or decortication. I discussed our plan with patient's daughter and she shows understanding and agreement. Questions answered at this time. 2. Continue current antibiotic therapy. Dr. Feldman is on board 3. Continue steroids and bronchodilators. 4. Continue supplemental oxygen and BiPAP. Consider AC mechanical ventilator if needed. 5. Follow up with ABG, chest x-ray, CBC and CMP. 6. Collect sputum for C&S if possible. 7. Follow up with final results of blood culture. 8. Continue GI and DVT prophylaxis. Thank you for the courtesy of this consult. Dictated by ZA Ruiz for Jonah Ryan MD cc: ZA Ruiz MD [facility]
[2018-12-24] MEDS: DUONEB (A & A) INH SCH ×6 (03:30→23:30)
[2018-12-24] MEDS: SOLU-MEDROL IV SCH ×3 (04:29→20:35)
[2018-12-24] MEDS: ZOSYN 3.375 GM in NS 50 ML IV SCH ×4 (04:29→21:36)
[2018-12-24] MEDS: ZYVOX 600 MG/D5W 600 MG/300 ML IVPB SCH ×2 (04:30→18:00)
--- NOTE | 2018-12-24 06:33 | Diag Imaging Result Doc PS360 ---
EXAM: CHEST-1 VIEW HISTORY: resp failure TECHNIQUE: Portable chest single view COMPARISON: 12/23/2018 FINDINGS: There is partial opacification of the right hemithorax. There are fluid collections with loculations. The right lung is better expanded on the current exam. No cardiomegaly. Minimal increased markings in the left base. These are less pronounced. IMPRESSION: Mild interval improvement. Electronically signed by Alberto Rm 12/24/2018 6:30 AM
[2018-12-24 06:38] LABS: BASO# 0.03 X1000 (0.0-0.2); BASO% 0.1 % (0.0-0.8); HEMATOCRIT 38.5 % (42.0-52.0); HEMOGLOBIN 11.9 g/dL (14.0-18.0); IMM GRAN# 0.24 X1000 (0.0-0.04); IMM GRAN% 0.6 % (0.0-0.5); LYMPH# 0.97 X1000 (1.2-3.4); LYMPH% 2.5 % (20.5-51.1); MCHC 30.9 g/dL (33-37); MCV 84.1 FL (81-99); MONO# 1.03 X1000 (0.11-0.59); MONO% 2.7 % (1.7-9.3); MPV 10.1 FL (7.4-10.4); NEUT# 35.95 X1000 (1.4-6.5); NEUT% 94.1 % (42.2-75.2); PLT 779 X1000 (130-400); RBC 4.58 XMIL (4.7-6.1); RDW 18.7 % (11.5-14.5); WBC 38.22 X1000 (4.8-10.8)
[2018-12-24 07:00] LABS: AGAP 16; ALB/GLOB RATIO 0.9; ALBUMIN 3.1 g/dL (3.5-5.0); ALKALINE PHOSPHATASE 144 U/L (32-122); BUN 29 mg/dL (8-22); CALCIUM 9.4 mg/dL (8.8-10.2); CHLORIDE 107 mmol/L (98-107); COSMO 295; CREATININE 0.9 mg/dL (0.7-1.2); ESTIMATED GFR > 60; GLUCOSE 139 mg/dL (70-104); GOT 46 U/L (10-34); GPT 28 U/L (10-44); POTASSIUM 4.3 mmol/L (3.5-5.1); SODIUM 144 mmol/L (136-145); TCO2 21 mmol/L (25-35); TOTAL BILIRUBIN 0.35 mg/dL (0.20-1.00); TOTAL PROTEIN 6.5 g/dL (6.3-8.3)
[2018-12-24 07:24] LABS: LYMPHS 2 % (21-51); SEGS 98 % (42-75)
[2018-12-24] MEDS: THERA M PLUS PO SCH (08:27)
[2018-12-24] MEDS: NAMENDA PO SCH ×2 (08:27→20:36)
[2018-12-24] MEDS: TOPAMAX PO SCH ×2 (08:27→20:36)
[2018-12-24] MEDS: PRINIVIL PO SCH (08:27)
[2018-12-24] MEDS: TOPROL XL PO SCH (08:27)
[2018-12-24] MEDS: ARICEPT PO SCH (08:27)
[2018-12-24 09:31] LABS: ALLEN TEST YES; BE -3.4 mmoll (-3.0-3.0); BLOOD TYPE ARTERIAL; HCO3-(ACT) 22.2 mmoll (20.0-26.0); METHB 1.3 % (0.0-1.5); O2(CT) 16.1 mL/dL (15.0-23.0); O2HB 94.3 % (95.0-99.0); PCO2(98.6) 37 mmHg (35-45); PO2(98.6) 86 mmHg (60-100); SAMPLE BLOOD; SRATE 10 BPM; THB 12.1 g/dL (11.5-17.4); pH(98.6) 7.37 (7.35-7.45)
[2018-12-24 09:35] LABS: MODALITY BI PAP
[2018-12-24] MEDS: PATIENT'S OWN MED PO SCH (09:41)
--- NOTE | 2018-12-24 12:30 | PROGRESS NOTE ---
DATE: 12/24/2018 SUBJECTIVE: This morning Mr. Sherman refers to be doing fairly okay. He is still on the BiPAP per the nursing staff, and that was uneventful. The patient has also been seen by infectious disease and Pulmonary Medicine, and he is pending a consult from surgery. OBJECTIVE: Vital signs: Blood pressure 143/88, pulses 101, respirations 19, and temperature 97.7 degrees. Patient is saturating 97% on the BiPAP. It goes down to 83 when he is off. General: Mr. Sherman is a 73-year-old male. He is in bed, and still on the BiPAP for adequate oxygenation. HEENT: Mucosa is pink and moist. Anicteric. Acyanotic. Neck: Supple. Chest: Air entry is bilaterally reduced. There are some crackles posteriorly, more on the right than the left. Cardiovascular: Slightly tachycardic, but no murmurs, no rubs, no gallops. Abdomen: Soft, nontender. Bowel sounds present. Extremities: No pedal edema. Distal pulses present. There is an old scar over the left knee consistent with previous knee surgery. CAN CAPPER: Patient is awake, alert and follows basic commands. LABORATORY DATA: WBC is 38.22, hemoglobin 11.9, and platelet count is 779,000. His sodium is 144, potassium is 4.3, chloride is 107, bicarb is 21, and creatinine is down to 0.9. The patient's chest x-ray this morning shows mild interval improvement. So far, blood cultures have been negative. Influenza is negative. MEDICATIONS: Also been reviewed. Patient is on Zosyn. Today is day 3, and Zyvox today is day 1. DIAGNOSTIC STUDIES: A CT scan of the chest which was done on presentation did show pleural effusion bilateral, particularly in the right where there is considerable loculation. There is hepatic abscess versus necrotic tumor, and questionable pneumonia. A chest x- ray this morning shows mild interval improvement. ASSESSMENT: 1. Acute hypoxemic respiratory failure. Patient continues to be on the BiPAP. Pulmonary Medicine is on board. 2. Sepsis secondary to pneumonia associated with multiloculated pleural effusions, more on the right than the left. The patient has been seen by ID, Pulmonary Medicine, and is pending surgery. There is a plan for thoracentesis. However, I think the patient will need a chest tube, and probably decortication. We will however wait for surgery to evaluate the patient and go from there. 3. Previous history of treated TB. There is concern that the pleural effusion could be TB. ID is on board, and will be pending the fluid for analysis and then go from there. 4. The liver abscess versus a necrotic tumor will be pending CT-guided drainage of the abscess. 5. History of chronic obstructive pulmonary disease. We will continue with antibiotics and bronchodilation therapy. Patient is also on steroids. 6. Hypertension is controlled. 7. Baseline dementia, stable. PLAN: In general, Mr. Sherman continues to be remarkably sick. He has multiloculated pleural effusions worse on the right. There is suspicion of underlying pneumonia. The patient is pending thoracentesis. I however believe that he is going to end up needing a chest tube, possible decortication to help prevent future restrictive lung disease. The patient is pending surgery evaluation today and then go from there. cc: Wild Melton MD MTDD
[2018-12-24] MEDS ORDERED: KETAMINE ONE (17:00)
[2018-12-24] MEDS ORDERED: ROBINUL ONE (17:01)
[2018-12-24] MEDS ORDERED: VERSED ONE (17:01)
[2018-12-24] MEDS ORDERED: SENSORCAINE-MPF 0.5%/EPI 1:200,000 ONE (17:02)
[2018-12-24] MEDS ORDERED: SODIUM CHLORIDE 0.9% 10 ML ONE (17:34)
[2018-12-24] MEDS ORDERED: NEO-SYNEPHRINE ONE (17:34)
--- NOTE | 2018-12-24 18:21 | Diag Imaging Result Doc PS360 ---
EXAM: CHEST-PORTABLE HISTORY: right chest tube placement TECHNIQUE: Portable chest COMPARISON: 5:29 AM FINDINGS: Interval placement of a right-sided chest tube. Interval decrease in the size of the largest lateral fluid collection. No pneumothorax. There are infiltrates which remain in the right lung. No cardiomegaly. No change in appearance of the left lung. IMPRESSION: No postprocedural pneumothorax. Electronically signed by Alberto Rm 12/24/2018 6:18 PM
[2018-12-24] MEDS: LIPITOR PO SCH (20:36)
[2018-12-24] MEDS: LAMICTAL PO SCH (20:36)
--- NOTE | 2018-12-24 21:21 | GENERAL SURGERY CONSULTATION ---
DATE: 12/24/2018 CHIEF COMPLAINT: Shortness of breath. HISTORY OF PRESENT ILLNESS: A 73-year-old gentleman with COPD who resides at [facility], who is brought to the emergency department on the with shortness of breath and cough for 2 days. He has also had some worsening confusion. Chest x-ray showed a right lower lobe pneumonia with effusion. PAST MEDICAL HISTORY: Pertinent for hypertension, hyperlipidemia, dementia, COPD. He has had a previous left thoracotomy with lung resection which turned out to be for tuberculosis. He has had bilateral knee replacement and hernia repair. MEDICATIONS: Listed. Include Namenda, Aricept, Effexor, Toprol, Lipitor, lisinopril, Topamax. ALLERGIES: He is allergic to Chantix. SOCIAL HISTORY: He is a former smoker. Previous alcohol abuse. FAMILY HISTORY: Negative for coronary disease. REVIEW OF SYSTEMS: As noted above. EXAM: Vital Signs: He is afebrile. Heart rate is 102, respiratory rate 20, blood pressure 145/87. He has a BiPAP machine on. His saturation is 100% on BiPAP. He has diminished breath sounds on the right. Heart: Irregular rate and rhythm. Abdomen: Soft. DIAGNOSTICS/LABS: White count is up to 38,000, hemoglobin 11.9, hematocrit 38. PH 7.3, pCO2 of 37, pO2 of 86. Base deficit 3.4. He is on BiPAP of 70%. CT shows loculated effusion on the right. Also low-density area in the liver. ASSESSMENT: Loculated effusion. Thus far, thoracentesis has not been performed, so I called Dr. Ryan and he is agreeable and is thankful that we can go ahead with a chest tube placement. I have discussed this with Mr. Sherman who agrees, so we will talk with his daughter when she arrives. We will do this with some mild sedation. As far as his hepatic abscess, this can certainly be drained percutaneously by CT guidance and should respond to antibiotic therapy. cc: Joby Willis MD
--- NOTE | 2018-12-24 22:18 | OPERATIVE NOTE ---
PROCEDURE DATE: 12/24/2018 NAME OF PROCEDURE: Right chest tube placement. SURGEON: Joby Willis MD. WELL LOGGING MUD ANALYSIS CAPTAIN: Debbie. PREOPERATIVE DIAGNOSIS: Loculated right pleural effusion. POSTOPERATIVE DIAGNOSIS: Loculated right empyema. DESCRIPTION OF PROCEDURE: After satisfactory monitoring anesthesia care was established, IV ketamine was given. The right anterolateral chest was prepped and draped in a sterile fashion. We anesthetized the skin with 0.5% Marcaine with epinephrine in the skin, and into the pleura. We then incised the skin, dissected through the subcutaneous tissue into the pleural space until free fluid was identified. We digitally opened the tract and then introduced a 28 trocar chest tube into the pleural space. Purulent fluid came forth. We actually cultured the fluid, then attached the chest tube to a Pleur-evac we secured the tube at the skin level with 0 silk stitch. Sterile gauze dressing was applied. He tolerated it well, was sent back to the ICU in stable condition. cc: Joby Willis MD
[2018-12-25] MEDS: DUONEB (A & A) INH SCH ×6 (03:53→23:45)
[2018-12-25] MEDS: ZYVOX 600 MG/D5W 600 MG/300 ML IVPB SCH ×2 (04:35→17:13)
[2018-12-25] MEDS: ZOSYN 3.375 GM in NS 50 ML IV SCH ×5 (04:36→21:31)
[2018-12-25] MEDS: SOLU-MEDROL IV SCH ×3 (04:37→21:30)
--- NOTE | 2018-12-25 08:43 | GENERAL SURGERY PROGRESS NOTE ---
DATE: 12/25/2018 It is 8:20 in the morning. He is afebrile, heart rate 109, blood pressure 132/77. He says his breathing is about the same. He has had 400 mL of fluid out of his chest tube. His chest x-ray does show improvement as compared to yesterday before the chest tube placement. The cultures are pending thus far. We will continue with chest tube drainage in hopes that this will clear his pleural space adequately. cc: Joby Willis MD
[2018-12-25] MEDS: TOPROL XL PO SCH (09:13)
[2018-12-25] MEDS: NAMENDA PO SCH ×2 (09:13→21:28)
[2018-12-25] MEDS: PRINIVIL PO SCH (09:13)
[2018-12-25] MEDS: TOPAMAX PO SCH ×2 (09:13→21:28)
[2018-12-25] MEDS: ARICEPT PO SCH (09:13)
[2018-12-25] MEDS: THERA M PLUS PO SCH (09:13)
[2018-12-25] MEDS: PATIENT'S OWN MED PO SCH (09:33)
--- NOTE | 2018-12-25 10:46 | Diag Imaging Result Doc PS360 ---
EXAM: CHEST-PORTABLE - 12/25/2018 HISTORY: dyspnea TECHNIQUE: Portable chest COMPARISON: 12/24/2018 FINDINGS: Right chest tube remains in place. There is partial opacification of right hemithorax similar to prior, except for apparent mild decrease in overall density at the inferior portion. There are no other acute changes identified. There is no pneumothorax identified. Heart size is normal. IMPRESSION: Stable exam compared to prior, except for mild decrease in density at the inferior right chest. Electronically signed by Dejon Mccann 12/25/2018 10:44 AM
--- NOTE | 2018-12-25 13:05 | PROGRESS NOTE ---
DATE: 12/25/2018 SUBJECTIVE: The patient resting in bed. OBJECTIVE: Vital signs: Temperature 98.9 degrees, pulse 117, respirations 21, blood pressure is 154/80, oxygen saturation 100%. HEENT: Atraumatic, normocephalic. Does have an oxygen mask in place. Cardiovascular: S1, S2. Respiratory system: Has evidence of good air entry bilaterally. Abdomen: Soft, nontender. No masses felt. Extremities: No evidence of edema in the lower extremities. Central nervous system: No evidence of focal deficits noted. LABORATORIES: WBC 38.22, hematocrit is 38.5, with a platelet count of 779,000. ABG 7.37/37/86/97 percent. Chemistry: Sodium 144, potassium 4.3, chloride 107, bicarb 21, BUN is 29, creatinine 0.9. IMAGING: X-ray of the chest. Shows partial opacification of the right hemithorax with apparent mild decrease in overall density at the inferior portion. ASSESSMENT AND PLAN: 1. Acute respiratory failure. Maintain patient on oxygen. Treat primary lung pathology, specifically pneumonia with right parapneumonic effusion. Pulmonary is following. 2. COPD. Maintain patient on nebulized bronchodilators, as well as steroids. 3. Probable right hepatic abscess. Maintain patient on antibiotics. The patient will need CT- guided drainage. Interventional Radiology has been consulted. 4. Hypertension. Continue current regimen. 5. Dementia. Continue current regimen. 6. Deep vein thrombosis prophylaxis. Sequential compression devices. 7. Gastrointestinal prophylaxis. Proton pump inhibitor. cc: Gio Adams MD
[2018-12-25] MEDS: LIPITOR PO SCH (21:27)
[2018-12-25] MEDS: LAMICTAL PO SCH (21:30)
[2018-12-26] MEDS: NORCO-7.5 PO PRN (02:51)
[2018-12-26] MEDS: DUONEB (A & A) INH SCH ×6 (03:15→23:18)
[2018-12-26] MEDS: ZOSYN 3.375 GM in NS 50 ML IV SCH ×4 (03:36→21:50)
[2018-12-26] MEDS: ZYVOX 600 MG/D5W 600 MG/300 ML IVPB SCH ×2 (04:42→16:30)
[2018-12-26] MEDS: SOLU-MEDROL IV SCH ×3 (04:42→20:20)
[2018-12-26 05:30] LABS: BASO# 0.01 X1000 (0.0-0.2); HEMATOCRIT 34.6 % (42.0-52.0); HEMOGLOBIN 10.6 g/dL (14.0-18.0); IMM GRAN% 0.5 % (0.0-0.5); LYMPH# 0.85 X1000 (1.2-3.4); LYMPH% 4.2 % (20.5-51.1); MCH 26.1 PG (27-31); MCHC 30.6 g/dL (33-37); MCV 85.2 FL (81-99); MPV 9.4 FL (7.4-10.4); NEUT# 18.55 X1000 (1.4-6.5); NEUT% 92.3 % (42.2-75.2); PLT 463 X1000 (130-400); RBC 4.06 XMIL (4.7-6.1); RDW 19.4 % (11.5-14.5); WBC 20.11 X1000 (4.8-10.8)
[2018-12-26 06:13] LABS: AGAP 11; ALB/GLOB RATIO 0.7; ALBUMIN 2.5 g/dL (3.5-5.0); ALKALINE PHOSPHATASE 104 U/L (32-122); BUN 35 mg/dL (8-22); CALCIUM 9.4 mg/dL (8.8-10.2); CHLORIDE 114 mmol/L (98-107); COSMO 309; CREATININE 0.8 mg/dL (0.7-1.2); ESTIMATED GFR > 60; GLUCOSE 156 mg/dL (70-104); GOT 27 U/L (10-34); GPT 24 U/L (10-44); POTASSIUM 3.4 mmol/L (3.5-5.1); SODIUM 150 mmol/L (136-145); TCO2 25 mmol/L (25-35); TOTAL BILIRUBIN 0.36 mg/dL (0.20-1.00); TOTAL PROTEIN 6.2 g/dL (6.3-8.3)
--- NOTE | 2018-12-26 07:28 | Diag Imaging Result Doc PS360 ---
EXAM: CHEST-1 VIEW INDICATION: pneumonia TECHNIQUE: One view COMPARISON: 12/25/2018 FINDINGS: The right chest tube is in stable position. Pleural fluid on the right is approximately stable. The lung volume on the right appears slightly lower. Diffuse infiltrate throughout the right lung is essentially stable. No new consolidation is identified. Cardiac silhouette is stable. IMPRESSION: Slightly lower lung volume on the right. Essentially stable chest, otherwise. Electronically signed by Chris Peck 12/26/2018 7:25 AM
[2018-12-26] MEDS: TOPROL XL PO SCH (08:28)
[2018-12-26] MEDS: PRINIVIL PO SCH (08:28)
[2018-12-26] MEDS: ARICEPT PO SCH (08:29)
[2018-12-26] MEDS: PATIENT'S OWN MED PO SCH (08:29)
[2018-12-26] MEDS: THERA M PLUS PO SCH (08:29)
[2018-12-26] MEDS: NAMENDA PO SCH ×2 (08:29→20:20)
[2018-12-26] MEDS: TOPAMAX PO SCH ×2 (08:29→20:19)
--- NOTE | 2018-12-26 11:09 | PROGRESS NOTE ---
DATE: 12/26/2018 SUBJECTIVE: The patient resting in bed. Has an oxygen mask in place. Not in any obvious distress. OBJECTIVE: Vital signs: Temperature 97.8 degrees, pulse 88, respiratory rate 16, blood pressure 173/91, oxygen saturation is 98%. HEENT: Atraumatic, normocephalic. Cardiovascular system: S1, S2. Respiratory system: Has evidence of good air entry bilaterally. Abdomen: Soft, nontender. No masses felt. Extremities: No evidence of significant edema. Central nervous system: No evidence of focal deficit noted. DIAGNOSTIC STUDIES: WBC is 20.11, hematocrit is 34.6, with a platelet count of 463,000. Sodium is 150, potassium 3.4, chloride is 114, bicarbonate 25, BUN is 35, creatinine 0.8. X-ray of the chest shows slightly lower lung volumes on the right. There are diffuse infiltrates throughout on the right lung. ASSESSMENT AND PLAN: 1. Acute respiratory failure. Maintain patient on oxygen. Treat primary lung pathology, specifically pneumonia with right pneumatic effusion. Pulmonary team is following. 2. Chronic obstructive pulmonary disease (COPD). Continue nebulized bronchodilators as well as steroids. 3. Probable right hepatic abscess. Continue antibiotics. The patient will need CT-guided drainage. Interventional Radiology consulted. 4. Hypertension. Continue current regimen. 5. Dementia. Aware. 6. Deep vein thrombosis (DVT) prophylaxis. SCD. 7. Gastrointestinal (GI) prophylaxis. PPI. 8. Hypernatremia. 1/2 NS started. F/U sodium level 9. Hypokalemia. Replete K+ cc: Gio Adams MD [facility]
[2018-12-26 11:28] LABS: AMYLASE BODY FLUID 22 U/L; GLUCOSE BODY FLUID 26 mg/dL; TOTAL PROT BODY FLUID 3.8 g/dL
[2018-12-26 11:34] LABS: LDH BODY FLUID > 2500 U/L
--- NOTE | 2018-12-26 11:40 | Diag Imaging Result Doc PS360 ---
CT THORAX W/O CONTRAST - 12/26/2018 INDICATION: SOB COMPARISON: 12/22/2018 FINDINGS: There is a new anterior-lateral, superior right chest tube in good position. There has been drainage of the anterior and lateral right pleural effusion. There is still significant posterior right pleural effusion. This has overall decreased since prior. There is a small left pleural effusion stable from prior. There is some amorphous mucous in the distal most trachea. There is stable considerable extension of the pleural effusion into the subcarinal space and posterior mediastinum, extending all the way to the descending aorta on the left side. Heart size is top normal. Trace pericardial effusion. There has been decrease in size of the centrally necrotic mass in the liver dome. This now measures 6.9 cm previously measuring about 8.5 cm. There is significant improvement in aeration of the lungs bilaterally, with some significant interstitial opacity bilaterally right greater than left consistent with edema, pneumonia or fibrosis. There are moderate degenerative changes of the spine. No acute or suspicious bony lesion. IMPRESSION: Significant improvement from prior. Persistent right pleural effusion posteriorly. Improved centrally fluid mass at the dome of the liver. This exam was performed using automated exposure control, adjustment of mA or kV according to patient size, and/or use of iterative reconstruction technique Electronically signed by Devang Gaona 12/26/2018 11:37 AM
[2018-12-26] MEDS: 1/2 NS 1,000 ML IV SCH (12:29)
[2018-12-26 12:30] LABS: BODY FLUID SOURCE PLEURAL FLUID; MONOS 1 %; POLYS 99 %; SPECIMEN PLEURAL FLUID; WBC BF 21450 /cumm
[2018-12-26 15:57] LABS: INR 1.35; PROTIME 17.8 Seconds (11.0-16.0)
--- NOTE | 2018-12-26 19:20 | INFECTIOUS DISEASE PROGRESS NO ---
DATE: 12/26/2018 PRESENT ILLNESS: The patient has a right-sided diffuse infiltrate, suspicious for pneumonia. The patient also has pleural fluid, which may actually be an empyema. The patient also has a liver mass, the exact etiology of which is uncertain at this time. MEDICATIONS: The patient is on a combination of Zyvox for 3 days and Zosyn for 5 days. PHYSICAL EXAMINATION: Vital Signs: Temperature is 97.3, pulse 73, respirations 18, blood pressure 147/67. General: This is an ill-appearing elderly male. He is lethargic. He looks malnourished. HEENT: No drainage noted from the nose or the ears. The patient did not talk, even though I asked him to. Neck: No meningismus. Lungs: There were diminished breath sounds on the right. There were bilateral rhonchi. Patient has a right-sided chest tube in place. Extremities: Patient has a PICC in his right arm. The site is not swollen or red. LABORATORY AND X-RAY: Chest x-ray shows right lung diffuse infiltrate. The CT scan of the chest shows significant improvement in the pleural fluid and there is a smaller necrotic mass in the liver dome. Pleural fluid: White count is 21,450 with 99% polymorphic nuclear white cells. Pleural fluid and blood cultures are negative. CBC shows a white count of 20,110, hemoglobin 10.6, and platelet count 463,000. ASSESSMENT AND PLAN: The patient has right lung pneumonia with possible empyema. The patient has a pleural effusion which has been partially drained. The patient may have a mass in the liver which is an infection. My plan is to continue the current antibiotics which are Zyvox and Zosyn. It is also possible that the patient's lung and pleural space and liver lesions could be due to tuberculosis, although I think the likelihood is very unlikely. COMORBIDITIES: The patient has COPD, dementia and Parkinson disease. The patient smokes cigarettes. He is a recovering alcoholic. He is a drug abuser. The patient also has bilateral knee replacements. cc: Ti Feldman MD
[2018-12-26] MEDS: LAMICTAL PO SCH (20:19)
[2018-12-26] MEDS: LIPITOR PO SCH (20:20)
[2018-12-27] MEDS: NORCO-7.5 PO PRN ×2 (01:13→23:36)
[2018-12-27] MEDS ORDERED: CALMOSEPTINE OINTMENT TOP PRN (01:37)
[2018-12-27] MEDS: DUONEB (A & A) INH SCH ×6 (03:18→23:05)
[2018-12-27] MEDS: SOLU-MEDROL IV SCH ×2 (04:23→18:22)
[2018-12-27] MEDS: ZOSYN 3.375 GM in NS 50 ML IV SCH ×4 (04:23→21:36)
[2018-12-27] MEDS: ZYVOX 600 MG/D5W 600 MG/300 ML IVPB SCH ×2 (04:32→18:42)
[2018-12-27] MEDS ORDERED: NS 250 ML ONE (08:28)
[2018-12-27] MEDS: ARICEPT PO SCH (08:44)
[2018-12-27] MEDS: TOPROL XL PO SCH (08:44)
[2018-12-27] MEDS: THERA M PLUS PO SCH (08:44)
[2018-12-27] MEDS: PRINIVIL PO SCH (08:44)
[2018-12-27] MEDS: NAMENDA PO SCH ×2 (08:44→20:35)
[2018-12-27] MEDS: TOPAMAX PO SCH ×2 (08:44→20:34)
[2018-12-27] MEDS: PATIENT'S OWN MED PO SCH (08:45)
[2018-12-27] MEDS: 1/2 NS 1,000 ML IV SCH (10:31)
--- NOTE | 2018-12-27 11:59 | PROGRESS NOTE ---
DATE: 12/27/2018 SUBJECTIVE: The patient is a little bit somnolent, but no major complaints. OBJECTIVE: Vital Signs: Blood pressure is 165/81, heart rate 72, respiratory rate 18, temperature 97.6 degrees, satting 100% on 35%. Ins and outs: He is about even, maybe a little bit negative. Cardiovascular: Regular rate and rhythm. Pulmonary: Diminished breath sounds at both bases. Some rales. No rhonchi. GI: Soft, nontender, nondistended. Bowel sounds are positive. LABORATORY DATA: He has got white count of 20, hemoglobin and hematocrit 10 and 34, platelets 463. INR 1.35. Sodium is up to 150, potassium 3.4, BUN is 35. PROBLEM LIST: 1. Acute respiratory failure related to pneumonia. 2. Chronic obstructive pulmonary disease. We will continue breathing treatments and steroids. Problem #1 is that he is on BiPAP and we are treating multiple issues. 3. Right pleural effusion with concern over possible empyema and very significant LDH. White count, which is mostly PMN's. Culture thus far is negative. Chest tube is in place, but it looks loculated. Pulmonary and Surgery are following. May need additional treatments. Video- assisted thoracoscopic surgery to discretion of Surgery. 4. Right hepatic abscess, unclear etiology. He will need drainage. I am not sure when we can achieve that; maybe when he gets off contact precautions, but he has got a large area there. Infectious Disease is following the pneumonia and possible abscess, and he is on Zosyn and Zyvox. 5. Hypertension. Continue current medications. 6. Hypernatremia. Reportedly half-normal was started. Actually I do not have any labs today, so we will need to see what his current electrolytes are showing. I will adjust accordingly. Zosyn typically has a large sodium content, so we will need to monitor. Disposition pending clinical status. We are waiting on getting him off contact precautions. He does have risk factors for tuberculosis, although no clear proof at this point. Cultures are all negative. I do not have an AFB yet, which I think by now he should at least have a smear back, but we do not have any data yet. DISPOSITION: Pending clinical status. I am going to go ahead and wean his steroids, see how he does. cc: Lucho Taylor MD
[2018-12-27] MEDS: PROTONIX IV SCH (12:03)
--- NOTE | 2018-12-27 13:58 | INFECTIOUS DISEASE PROGRESS NO ---
DATE: 12/27/2018 PRESENT ILLNESS: The patient has a right-sided question patient appears to have pneumonia with pleural fluid, which may be an empyema. The patient also has a necrotic liver mass, the exact etiology of which is uncertain to me at this time. MEDICATIONS: The patient has been on Zyvox for 4 days and Zosyn for 6 days. PHYSICAL EXAMINATION: Vital Signs: Temperature 97.6 degrees, pulse 72, respirations 18, blood pressure 165/81. General: This is a ill-appearing, elderly male. He seems to be more talkative today. He looks malnourished. He is not in any acute distress. Head, Eyes, Ears, Nose, Throat: He can hear my spoken words and see near objects. He was able to talk. Neck: No stiffness. Lungs: Diminished breath sounds on the right side. There were bilateral rhonchi. Thorax: The patient has a right-sided chest tube in place. Abdomen: Soft and not tender. Extremities: The patient has a PICC in his right arm. The site is not swollen or draining. Neurologic: The patient is more awake today. He was able to talk and he can move his extremities. LAB AND X-RAY: CBC shows a white count of 20,110, hemoglobin 10.6, platelet count 463,000. Creatinine 0.8. GFR is greater than 60. Pleural fluid white blood cell count was 21,450, of which 99% were polymorphonuclear white cells. ASSESSMENT AND PLAN: The patient has right lung pneumonia with empyema. There also is a mass in the liver, the exact etiology of which is not known. I plan to continue with the patient's current antibiotics. I have discussed the patient with Dr. Willis. We have put in a consult for Radiology to try to drain the mass in the liver. I have requested that they send it for culture and also for his cytology and/or pathology. COMORBIDITIES: The patient has COPD, dementia, Parkinson disease, cigarette abuse, alcoholism, drug user. The patient has also had bilateral knee replacements. cc: Ti Feldman MD
[2018-12-27] MEDS: D5 1/2 NS 1,000 ML IV SCH (14:00)
--- NOTE | 2018-12-27 16:00 | Diag Imaging Result Doc PS360 ---
CT DRAIN ABDOMEN ABSCESS W/IMG - 12/27/2018 INDICATION: necrotic liver mass TECHNIQUE: The risks and benefits of the procedure were discussed with the patient. All questions were answered. Written and verbal informed consent was obtained. Overlying skin was prepped and draped in sterile fashion. Anesthesia was achieved with injection of 10 cc of 1% lidocaine. COMPARISON: 12/22/2018 FINDINGS: The 10.2-[place] drain was placed to the right flank into the hepatic fluid collection. A large amount was aspirated and a syringe and sent for analysis, and the drain was anchored in place. A second drain was placed in the dominant remaining fluid collection at the posterior right lung base. Again a large amount was aspirated and sent for analysis, and the drain was anchored in place. IMPRESSION: Successful and uncomplicated CT guided placement of drains within the hepatic fluid collection and the dominant remaining pleural fluid collection at the right lung base. Electronically signed by Devang Gaona 12/27/2018 3:57 PM
[2018-12-27] MEDS: LIPITOR PO SCH (20:35)
[2018-12-27] MEDS: LAMICTAL PO SCH (20:35)
[2018-12-27 22:20] LABS: AGAP 8; BUN 20 mg/dL (8-22); CALCIUM 8.7 mg/dL (8.8-10.2); CHLORIDE 103 mmol/L (98-107); COSMO 280; CREATININE 0.7 mg/dL (0.7-1.2); ESTIMATED GFR > 60; GLUCOSE 161 mg/dL (70-104); SODIUM 137 mmol/L (136-145); TCO2 26 mmol/L (25-35)
[2018-12-27] MEDS ORDERED: POTASSIUM CHLORIDE 20% LIQUID PO ONE (23:05)
[2018-12-28] MEDS: D5 1/2 NS 1,000 ML IV SCH (01:47)
[2018-12-28] MEDS: DUONEB (A & A) INH SCH ×6 (03:05→23:35)
[2018-12-28] MEDS: ZOSYN 3.375 GM in NS 50 ML IV SCH ×4 (03:34→21:22)
[2018-12-28] MEDS: SOLU-MEDROL IV SCH (03:34)
[2018-12-28] MEDS: ZYVOX 600 MG/D5W 600 MG/300 ML IVPB SCH ×2 (05:07→17:14)
[2018-12-28] MEDS: LOVENOX SUBQ SCH (05:07)
[2018-12-28 05:49] LABS: HEMATOCRIT 33.4 % (42.0-52.0); HEMOGLOBIN 10.3 g/dL (14.0-18.0); MCH 26.1 PG (27-31); MCHC 30.8 g/dL (33-37); MCV 84.8 FL (81-99); MPV 9.2 FL (7.4-10.4); RBC 3.94 XMIL (4.7-6.1); WBC 10.4 X1000 (4.8-10.8)
[2018-12-28 06:24] LABS: AGAP 11; BUN 18 mg/dL (8-22); CALCIUM 8.4 mg/dL (8.8-10.2); CHLORIDE 107 mmol/L (98-107); COSMO 286; CREATININE 0.8 mg/dL (0.7-1.2); ESTIMATED GFR > 60; GLUCOSE 149 mg/dL (70-104); POTASSIUM 3.6 mmol/L (3.5-5.1); SODIUM 141 mmol/L (136-145); TCO2 23 mmol/L (25-35)
--- NOTE | 2018-12-28 07:45 | Diag Imaging Result Doc PS360 ---
CHEST-PORTABLE - 12/28/2018 INDICATION: dyspnea COMPARISON: 12/26/2018 FINDINGS: There are two new drains in the lateral right body. Stable right chest tube as well. There is a new right PICC line in good position with the catheter tip at the upper SVC. There has been significant improvement with near complete resolution of the right pleural effusion. No pneumothorax or new infiltrates. IMPRESSION: Near complete resolution of the right pleural effusion secondary to the new drain. Electronically signed by Devang Gaona 12/28/2018 7:42 AM
[2018-12-28] MEDS ORDERED: PRINIVIL PO ONE (09:56)
[2018-12-28] MEDS: PRINIVIL PO SCH (09:58)
[2018-12-28] MEDS: ARICEPT PO SCH (09:58)
[2018-12-28] MEDS: TOPAMAX PO SCH ×2 (09:58→20:25)
[2018-12-28] MEDS: PROTONIX IV SCH ×2 (09:58→11:50)
[2018-12-28] MEDS: TOPROL XL PO SCH (09:58)
[2018-12-28] MEDS: THERA M PLUS PO SCH (09:58)
[2018-12-28] MEDS: NAMENDA PO SCH ×2 (09:58→20:24)
[2018-12-28] MEDS: SODIUM CHLORIDE 0.9% INJ SCH (09:59)
[2018-12-28 10:16] LABS: HIV ANTIBODY SCREEN SEE COMMENTS
--- NOTE | 2018-12-28 10:16 | PROGRESS NOTE ---
DATE: 12/28/2018 SUBJECTIVE: The patient has no focal complaints. OBJECTIVE: Vital signs: Blood pressure is 155/120, heart rate 91, respiratory rate of 19, 96.5. Cardiovascular: Regular rate and rhythm. Pulmonary: Bilateral breath sounds clear to auscultation. Gastrointestinal: Soft, nontender, nondistended. Bowel sounds are positive. DIAGNOSTIC STUDIES: White count is 10, hemoglobin 10, hematocrit 33, platelets 372,000. Basic was normal; sodium is down 141. AFP from pleural fluid is negative. ASSESSMENT AND PLAN: 1. Acute respiratory failure secondary to pneumonia. We will continue treatment and follow. 2. Chronic obstructive pulmonary disease with exacerbation and respiratory failure. He is on BiPAP intermittently. I am weaning steroids. Continue breathing treatments. 3. Right pleural effusion with concern over empyema. He is status post chest tube which is still draining a little bit, not very much. His accordion drain has 845 and may need to replace chest tube. He had procedures yesterday, draining his hepatic fluid and a posterior lung fluid as well. I do not have volumes on that, but that is what was stated, so we will continue to follow. 4. Right hepatic abscess. Again status post drainage. We will try to send off cultures. I cannot tell that this was done yet; will send cell count as well. 5. Hypertension. I think we are going to have to adjust his medicines up a bit. He is on lisinopril and metoprolol. I will probably double his lisinopril and see how he does. 6. Encephalopathy. May be related to alcohol withdrawal, substance abuse. We will continue to follow closely. 7. Presumed pneumonia. He is on Zosyn and Zyvox. Dr. Feldman is following. We greatly appreciate management input. 8. Nutrition. He is not eating very well. We will go ahead and start Clinimix and follow closely. DISPOSITION: Pending clinical status. Discussed with Dr. Feldman, unfortunately, pt has prior tuberculosis history and quantiferon is intermediately positive, so we will have to continue precautions for now. cc: Lucho Taylor MD [facility] CENTERJesse
[2018-12-28] MEDS: PATIENT'S OWN MED PO SCH (10:34)
[2018-12-28] MEDS: CLINIMIX E 4.25%-5% SOLUTION 1,000 ML IV SCH ×2 (10:45→20:24)
--- NOTE | 2018-12-28 14:06 | INFECTIOUS DISEASE PROGRESS NO ---
DATE: 12/28/2018 PRESENT ILLNESS: The patient has pneumonia with pleural effusion. He also has a necrotic liver mass. MEDICATIONS: The patient has been on Zyvox for 5 days and Zosyn for 7 days. PHYSICAL EXAMINATION: Vital Signs: Temperature is 98.9 degrees, pulse 99, respirations 15, blood pressure 150/101. General: This is an ill-appearing elderly male, who is in no acute distress. Head, eyes, ears, nose, and throat: He can hear my spoken words and see near objects. He is able to talk. There were no white patches on his tongue. Neck: No meningismus. Lungs: There were some diminished breath sounds on the right side. I did not hear any rales or wheezes on either side. Abdomen: Soft and nontender. A drain is in the liver. Thorax: Patient has a right- sided chest tube in place. Extremities: Patient has a PICC in the right arm. The site is not swollen or tender. Neurologic: Patient is awake and talking today. He can move his extremities. There is no tremor. DIAGNOSTIC STUDIES: Patient's CBC: White count is 10,400, hemoglobin 10.3, and platelet count 372,000. The creatinine 0.8, GFR is greater than 60. Pleural fluid culture is sterile. Chest x-ray shows a right pleural effusion that is almost completely gone. There was also seen hepatic fluid. Both the pleural fluid and the liver fluid which have been aspirated from the patient are being sent for cultures. ASSESSMENT AND PLAN: 1. Patient has right lung pneumonia with possible empyema. 2. There also is a liver mass which has fluid in it, the exact etiology of which is not known. The plan is to send the fluid both from the pleural space and the liver for cultures as mentioned above, and for now, I am going to continue with Zyvox and Zosyn. Also, I have asked for cytology on the pleural and hepatic fluid as well. COMORBIDITIES: The patient has: 1. Chronic obstructive pulmonary disease (COPD). 2. Dementia. 3. Parkinson's disease. 4. Cigarette abuse. 5. Alcoholism. 6. Drug user. cc: Ti Feldman MD
[2018-12-28 17:28] LABS: TOTAL PROT BODY FLUID 3.8 g/dL
[2018-12-28 19:39] LABS: WBC BF 51392 /cumm
[2018-12-28 19:43] LABS: MONOS 13 %; POLYS 87 %
[2018-12-28 19:51] LABS: GLUCOSE BODY FLUID < 2 mg/dL
[2018-12-28] MEDS: LIPITOR PO SCH (20:25)
[2018-12-28] MEDS: LAMICTAL PO SCH (20:25)
[2018-12-28 22:00] LABS: PH BODY FLUID 7; SPECIMEN PLEURAL FLUID
[2018-12-28 22:16] LABS: BODY FLUID SOURCE PLEURAL FLUID; WBC BF 99904 /cumm
[2018-12-28 22:36] LABS: MONOS 4 %; POLYS 96 %
[2018-12-29] MEDS: DUONEB (A & A) INH SCH ×6 (03:50→23:00)
[2018-12-29] MEDS: ZOSYN 3.375 GM in NS 50 ML IV SCH ×4 (04:25→22:08)
[2018-12-29] MEDS: ZYVOX 600 MG/D5W 600 MG/300 ML IVPB SCH ×2 (04:29→17:20)
[2018-12-29 04:54] LABS: HEMATOCRIT 35.1 % (42.0-52.0); HEMOGLOBIN 10.9 g/dL (14.0-18.0); MCH 26.1 PG (27-31); MCHC 31.1 g/dL (33-37); MPV 9.4 FL (7.4-10.4); RBC 4.18 XMIL (4.7-6.1); RDW 19.1 % (11.5-14.5); WBC 12.12 X1000 (4.8-10.8)
[2018-12-29 05:28] LABS: AGAP 7; BUN 24 mg/dL (8-22); CALCIUM 9.3 mg/dL (8.8-10.2); CHLORIDE 105 mmol/L (98-107); COSMO 286; CREATININE 0.8 mg/dL (0.7-1.2); ESTIMATED GFR > 60; GLUCOSE 140 mg/dL (70-104); POTASSIUM 3.5 mmol/L (3.5-5.1); SODIUM 140 mmol/L (136-145); TCO2 28 mmol/L (25-35)
[2018-12-29] MEDS: CLINIMIX E 4.25%-5% SOLUTION 1,000 ML IV SCH ×2 (05:34→16:00)
[2018-12-29] MEDS: LOVENOX SUBQ SCH (05:34)
--- NOTE | 2018-12-29 06:30 | Diag Imaging Result Doc PS360 ---
CHEST-PORTABLE - 12/29/2018 INDICATION: dyspnea COMPARISON: 12/28/2018 FINDINGS: Stable right PICC line. Stable chest tube and right-sided drains. There are trace pleural effusions. Lungs are hyperexpanded compatible with COPD. No new or focal infiltrates. Heart size remains normal. No pneumothorax. IMPRESSION: No change from prior. Electronically signed by Devang Gaona 12/29/2018 6:28 AM
[2018-12-29] MEDS: THERA M PLUS PO SCH (09:19)
[2018-12-29] MEDS: PRINIVIL PO SCH (09:19)
[2018-12-29] MEDS: NAMENDA PO SCH ×2 (09:19→20:41)
[2018-12-29] MEDS: TOPROL XL PO SCH (09:19)
[2018-12-29] MEDS: PROTONIX IV SCH (09:19)
[2018-12-29] MEDS: ARICEPT PO SCH (09:19)
[2018-12-29] MEDS: TOPAMAX PO SCH ×2 (09:19→20:41)
[2018-12-29] MEDS: SOLU-MEDROL IV SCH (09:21)
[2018-12-29] MEDS: PATIENT'S OWN MED PO SCH (09:41)
[2018-12-29] MEDS: HALDOL IV PRN ×2 (11:11→18:15)
--- NOTE | 2018-12-29 12:12 | PROGRESS NOTE ---
DATE: 12/29/2018 INTERVAL HISTORY: No acute overnight events. SUBJECTIVE: I was informed that the patient has been a little agitated and trying to pull out the tubes. He is still on respiratory airborne precautions because of intermediate QuantiFERON gold test. The patient appears awake, alert. He does have some memory impairment. He is oriented to himself, hospital situation. He could not tell me the place that he is living right now. I discussed with him about his clinical condition. VITAL SIGNS: Temperature 98.7 degrees, pulse 107 per minute, blood pressure 163 /92, saturating 97% on room air. PHYSICAL EXAMINATION: General: Flat affect. Does not appear in any acute distress. HEENT: Oral cavity is moist. Cardiovascular: S1, S2 normal. Tachycardic. No murmur , rub, or gallop. Respiratory: Decreased air entry in bilateral infrascapular regions at the bases. He has a right- sided chest tube, a pigtail catheter, and a right-sided drain coming out from the flank, supposedly from the liver. All of these are heavily dressed. Good air entry on the left hemithorax. Abdomen: Soft, nontender. Extremities: No lower extremity edema. He has a urine catheter. Input and Output: The chest tube has been putting out minimal output , only about 5 mL. The pigtail catheter is putting out about 90 mL of output and abdominal drain is putting out about 30 mL of output. LABS: Suggestive of mild leukocytosis, normocytic anemia, normal electrolytes, and normal kidney function. Pleural fluid has been suggestive of exudative etiology. AFB smear has been negative. ASSESSMENT AND PLAN: 1. Sepsis due to right lower lobe pneumonia leading to empyema with right-sided hepatic abscess. Continue patient on intravenous Zosyn and linezolid as per infectious disease recommendation. He currently has a chest tube, right-sided posterior pleural space pigtail catheter, and right hepatic lobe drain. Await final culture results which could be negative as he has been on antibiotics for a few days now. I will appreciate surgery recommendation about removal of chest tube since it is not putting out any more fluid. 2. Acute exacerbation of chronic obstructive pulmonary disease. Continue albuterol/ipratropium nebulization and low-dose steroid. My plan is to stop steroid on January 01. 3. Acute encephalopathy, likely critical illness induced hyperactive delirium in the setting of baseline dementia. Start patient on nighttime quetiapine and as needed haloperidol, and adjust the dose according to his response. 4. Essential hypertension. Continue his metoprolol and high dose of lisinopril. Now in acceptable range. 5. Nutrition. Continue intravenous Clinimix. 6. Others. Continue home lamotrigine and topiramate. 7. Continue home donepezil and memantine for dementia. 8. Disposition. Patient remains inside the intensive care unit for close monitoring of his respiratory status. More than 30 minutes of critical care time were spent in taking care of this patient. I called the patient's daughter and informed her about his medical course. She is the surrogate decision maker and I answered all of her questions. cc: Mikey Christina MD MTDD
--- NOTE | 2018-12-29 15:28 | INFECTIOUS DISEASE PROGRESS NO ---
DATE: 12/29/2018 PRESENT ILLNESS: The patient initially had pneumonia and had pleural effusions. It appears that the pleural effusion actually was an empyema given the fact that the patient's last pleural fluid had a white blood cell count of 99,904 with 96% polymorphonuclear white cells. MEDICATIONS: The patient has been on Zyvox for 6 days and Zosyn for 8 days. PHYSICAL EXAMINATION: Vital Signs: Temperature is 97.7 degrees, pulse 95, respirations 26, blood pressure 187/91. General: This is an ill-appearing, elderly male. He is in no acute distress. Head, eyes, ears, nose and throat: Today, it was more much more difficult communicating with the patient. He did not say anything. There was no drainage noted from the nose or ears, and his tongue did not have any white patches on it. Neck: No stiffness. Lungs: There were some diminished breath sounds, but otherwise the lungs were clear. Cardiovascular: Heart rate is regular. Abdomen: Soft and nontender. The patient has a drain in the liver. Thorax: The patient has a drain present on the right chest. Dr. Willis is probably going to remove that today. Neurologic: Patient is lethargic. He did not respond to verbal stimuli. LAB AND X-RAY: The CBC shows a white count of 12,120, hemoglobin 10.9, and platelet count 380,000. Creatinine is 0.8. GFR is greater than 60. Pleural fluid white blood cell count was 99,904 with 96% polymorphonuclear cells. The pleural and liver fluid cultures are negative. Chest x-ray shows no infiltrate and trace pleural effusions. ASSESSMENT AND PLAN: I have discussed with Dr. Christina and Dr. Willis that the patient does not appear to have pneumonia now. The feeling is that he did have an empyema which has been drained and, because of it being an empyema, we plan to continue the antibiotics for awhile so that the empyema will not re-form COMORBIDITIES: The patient's comorbidities include COPD, dementia, Parkinson disease, cigarette abuse, alcoholism, and drug abuse. cc: Ti Feldman MD
--- NOTE | 2018-12-29 15:34 | GENERAL SURGERY PROGRESS NOTE ---
DATE: 12/29/2018 Mr. Sherman has not had much out of his chest tube over the past 3 days. His other drains have done well. I will therefore remove his chest tube. He obviously feels better. He admits that he is much better than he was when he came in the hospital. His white count is 12,000. We will remove his chest tube, and when the other drains decrease, we will remove them as well. cc: Joby Willis MD
[2018-12-29] MEDS: LIPITOR PO SCH (20:41)
[2018-12-29] MEDS: LAMICTAL PO SCH (20:41)
[2018-12-29] MEDS: SEROQUEL PO SCH (20:41)
[2018-12-30] MEDS: CLINIMIX E 4.25%-5% SOLUTION 1,000 ML IV SCH (02:42)
[2018-12-30] MEDS: DUONEB (A & A) INH SCH ×5 (03:15→19:31)
[2018-12-30] MEDS: ZYVOX 600 MG/D5W 600 MG/300 ML IVPB SCH (04:29)
[2018-12-30] MEDS: ZOSYN 3.375 GM in NS 50 ML IV SCH ×4 (04:29→22:51)
[2018-12-30 05:18] LABS: HEMATOCRIT 33.9 % (42.0-52.0); HEMOGLOBIN 10.4 g/dL (14.0-18.0); MCH 26.1 PG (27-31); MCHC 30.7 g/dL (33-37); MPV 9.4 FL (7.4-10.4); RBC 3.99 XMIL (4.7-6.1); RDW 19.3 % (11.5-14.5); WBC 10.06 X1000 (4.8-10.8)
[2018-12-30 05:36] LABS: AGAP 10; BUN 22 mg/dL (8-22); CALCIUM 8.7 mg/dL (8.8-10.2); CHLORIDE 105 mmol/L (98-107); COSMO 285; CREATININE 0.6 mg/dL (0.7-1.2); ESTIMATED GFR > 60; GLUCOSE 140 mg/dL (70-104); POTASSIUM 3.2 mmol/L (3.5-5.1); SODIUM 140 mmol/L (136-145); TCO2 25 mmol/L (25-35)
[2018-12-30] MEDS: LOVENOX SUBQ SCH (06:29)
--- NOTE | 2018-12-30 07:05 | Diag Imaging Result Doc PS360 ---
EXAM: CHEST-PORTABLE 12/30/2018 HISTORY: dyspnea TECHNIQUE: AP portable at 0455 COMMENT: There is a right pleural effusion. This appears to be loculated. There is a right-sided PICC line with its tip in the superior vena cava. Compared to the previous study of 12/29/2018 there has been clearing of the left base. Otherwise considering differences in projection and technique there has been no appreciable change. IMPRESSION: Improved atelectasis or pneumonia left lower lobe. Electronically signed by Terrell Fuentes 12/30/2018 7:02 AM
[2018-12-30] MEDS: SOLU-MEDROL IV SCH (08:47)
[2018-12-30] MEDS: TOPAMAX PO SCH ×3 (08:48→20:21)
[2018-12-30] MEDS: PROTONIX IV SCH (08:48)
[2018-12-30] MEDS: PRINIVIL PO SCH (08:48)
[2018-12-30] MEDS: THERA M PLUS PO SCH (08:48)
[2018-12-30] MEDS: ARICEPT PO SCH (08:48)
[2018-12-30] MEDS: SODIUM CHLORIDE 0.9% INJ SCH (08:48)
[2018-12-30] MEDS: TOPROL XL PO SCH (08:49)
[2018-12-30] MEDS: NAMENDA PO SCH ×3 (08:55→20:21)
[2018-12-30] MEDS: PATIENT'S OWN MED PO SCH (08:55)
[2018-12-30] MEDS: HALDOL IV PRN ×2 (11:41→15:57)
--- NOTE | 2018-12-30 12:07 | PROGRESS NOTE ---
DATE: 12/30/2018 INTERVAL HISTORY: The patient pulled out his PICC line today. After discussion with the nursing team we will try to get a peripheral IV line if possible. SUBJECTIVE: The patient is much more awake and alert, answering simple questions, following all simple commands. He denies any recent weight loss or cough with expectoration. He does have memory lapses, though he admits that he has been diagnosed with dementia and bipolar mood disorder. The patient denies chest pain, shortness of breath, nausea, vomiting, or abdominal pain. OBJECTIVE: Vitals: Temperature 97.7 degrees, pulse 99, blood pressure 140/90, saturating 97% on room air. General: Does not appear in any acute distress. HEENT: Oral cavity is moist. Lungs: Air entry bilaterally equal. No wheeze or rhonchi. Mild crackles bilateral infrascapular region. Skin: He has a right-sided chest drain. He also has a drain in the flank, with supposedly is going to his liver. Abdomen: Otherwise is soft, nontender. Extremities: No lower extremity edema. Neurologic: He is alert. He is oriented to himself, to me, to this place, could not remember the day, date or year. Follows all commands like raising extremities and opening mouth. Does not appear in any acute distress. DRAINS: The pigtail catheter coming out from the chest as well as abdominal drain is putting out about 40 mL output. DIAGNOSTIC DATA: Labs suggestive of no leukocytosis, stable hemoglobin, hematocrit, and platelet count, hypokalemia, normal kidney function. MICROBIOLOGY: No positive culture data. ASSESSMENT AND PLAN: 1. Sepsis due to right lower lobe pneumonia leading to empyema, with right-sided hepatic abscess, likely due to contiguous spread, now status post right-sided pleural space pigtail drain and right-sided hepatic lobe drain. Continue Zosyn and linezolid as per Infectious Disease recommendation until his drain output becomes minimal. Await final culture sensitivity result. Though he had previous history of treated tuberculosis, his current QuantiFERON gold test is intermediate. The patient denies cough, productive cough, or recent weight loss, and suspicion of tuberculosis is significantly less so I will discontinue airborne precautions. His chest tube was removed yesterday. 2. Acute exacerbation of COPD. Continue albuterol/ipratropium nebulization, and low-dose steroid, to be stopped within he next 48 hours, January 01. 3. Acute encephalopathy, likely critical illness-induced delirium in the setting of baseline dementia. Continue nighttime quetiapine and as needed haloperidol. 4. Essential hypertension. Continue home metoprolol, high dose lisinopril and p.r.n. labetalol that I ordered today. I will follow up with EKG for his intermittent tachycardia. 5. History of bipolar disorder and dementia. Continue home lamotrigine, topiramate, donepezil and memantine. 6. Nutrition. The patient has been eating 25 to 50 percent of meals over the last 48 hours and so I will discontinue his intravenous nutrition and encourage p.o. intake. 7. Disposition. The patient remains inside the ICU for chest tube and abdominal drain, and his tenuous status. If he is hemodynamically stable my plan is to transfer him to [facility] tomorrow. CRITICAL CARE TIME: More than 30 minutes of critical care time was spent in taking care of this patient. I had informed the patient's daughter, who is a surrogate decision-maker, yesterday, and had answered all of her questions. cc: Mikey Christina MD
--- NOTE | 2018-12-30 13:28 | EKG Report ---
Test Performed on : 12/30/2018 11:10:12 AM Test Reason : Tachycardia. VPCs run Blood Pressure : / mmHG Vent. Rate : 113 BPM Atrial Rate : 113 BPM P-R Int : 138 ms QRS Dur : 100 ms QT Int : 376 ms P-R-T Axes : 079 085 137 degrees QTc Int : 515 ms Sinus tachycardia. Minimal voltage criteria for LVH, may be normal variant ST & Marked T wave abnormality, consider anterolateral ischemia Abnormal ECG When compared with ECG of 23-DEC-2018 14:21, premature ventricular complexes. are no longer present Criteria for Septal infarct are no longer present ST now depressed in Inferior leads Non-specific change in ST segment in Anterior leads T wave inversion more evident in Anterolateral leads Confirmed by Lopez FAUSTIN, Jin James ([id number]) on 12/31/2018 7:10:38 AM
--- NOTE | 2018-12-30 13:29 | PULMONOLOGY PROGRESS NOTE ---
DATE: 12/30/2018 SUBJECTIVE: Patient is awake, alert, and conversant. He is without specific complaints. OBJECTIVE: Vital Signs: The patient has been afebrile over the last 24 hours. Blood pressure 147/66, heart rate 107, respiratory rate 18, oxygen saturation 96% on room air. HEENT: Pupils are equal and reactive. Oropharynx appears clear. Teeth appear to be in relatively good condition. Neck: Supple. Chest: Reveals chest tube at the right base. Cardiac: S1, S2. Abdomen: Scaphoid and soft. Extremities: Without edema. LABORATORY DATA: White blood count 10.06, hemoglobin 10.4, platelet count 288,000. Microbiology reveals no growth from the lung or from the abdominal abscess. IMAGING: Chest x-ray reveals clearing of the left base with loculated fluid at the right base. IMPRESSION: A 73-year-old with: 1. Empyema. 2. Hepatic abscess. 3. Dementia. 4. Parkinson disease. 5. History of alcoholism. 6. Chronic obstructive pulmonary disease. RECOMMENDATIONS: 1. Continue antibiotics at the direction of Dr. Ti Feldman. 2. Continue drainage of the loculated fluid at the right base. 3. Encourage p.o. intake. cc: Devin Ly MD
--- NOTE | 2018-12-30 14:16 | GENERAL SURGERY PROGRESS NOTE ---
DATE: 12/30/2018 SUBJECTIVE: Mr. Sherman is more awake, alert and breathing better. He is afebrile. The drainage from pleural drain is hepatic drain both are around 40-45 mL and serous appearing. We will therefore removed the drains. The cultures have continued to be sterile. cc: Joby Willis MD
[2018-12-30] MEDS: NORCO-7.5 PO PRN (15:58)
[2018-12-30] MEDS: LAMICTAL PO SCH ×2 (19:53→20:20)
[2018-12-30] MEDS: SEROQUEL PO SCH ×2 (19:53→20:21)
[2018-12-30] MEDS: LIPITOR PO SCH ×2 (19:53→20:21)
--- NOTE | 2018-12-30 21:11 | INFECTIOUS DISEASE PROGRESS NO ---
DATE: 12/30/2018 PRESENT ILLNESS: The patient had pneumonia, which was complicated by empyema. He also had a liver lesion, the exact etiology of which is not certain to me. MEDICATIONS: The patient is on a combination of Zyvox and Zosyn. PHYSICAL EXAMINATION: Vital Signs: Temperature is 98, pulse 114, respirations 22, blood pressure 134/69. General: This is an ill-appearing, elderly male. He is in no acute distress. HEENT: He can see near objects and he can hear my spoken words. He does not have any white patches on his tongue. Neck: No meningismus. Lungs: Clear to auscultation. Thorax: The patient pulled out his chest tube. Abdomen: Soft and nontender. The patient also pulled out his tube in the abdomen to where the liver lesion was. Neurologic: The patient is awake. He can move his extremities. There is no tremor. Extremities: The patient pulled out his PICC. LABS AND X-RAY: Chest x-ray for today shows improved atelectasis or pneumonia in the left lower lobe. Lab studies show white count of 10,060, hemoglobin 10.4, platelet count 288,000. Creatinine is 0.6. GFR is greater than 60. HIV antibody is nonreactive. ASSESSMENT AND PLAN: The patient appears to have pneumonia, which is clearing. He also had an empyema. He had a liver lesion, the etiology of which is uncertain to me. My plan now will be to continue Zosyn and discontinue Zyvox. Basically, I will be treating the patient as if he had an empyema. COMORBIDITIES: In this patient's case include COPD, dementia, Parkinson disease, cigarette abuse, alcoholism, drug use. cc: Ti Feldman MD
[2018-12-31] MEDS: DUONEB (A & A) INH SCH ×7 (00:14→22:58)
[2018-12-31] MEDS: LABETALOL IV PRN ×2 (00:19→06:15)
[2018-12-31] MEDS: NORCO-7.5 PO PRN (01:05)
[2018-12-31] MEDS: TYLENOL PO PRN (05:03)
[2018-12-31] MEDS: ZOSYN 3.375 GM in NS 50 ML IV SCH ×4 (05:03→20:32)
[2018-12-31] MEDS: LOVENOX SUBQ SCH (05:04)
[2018-12-31] MEDS: PROTONIX IV SCH (08:49)
[2018-12-31] MEDS: THERA M PLUS PO SCH (08:49)
[2018-12-31] MEDS: ARICEPT PO SCH (08:50)
[2018-12-31] MEDS: PRINIVIL PO SCH (08:50)
[2018-12-31] MEDS: TOPROL XL PO SCH (08:50)
[2018-12-31] MEDS: SOLU-MEDROL IV SCH (08:50)
[2018-12-31] MEDS: TOPAMAX PO SCH ×2 (08:50→20:32)
[2018-12-31] MEDS: NAMENDA PO SCH ×2 (08:50→20:32)
[2018-12-31] MEDS: PATIENT'S OWN MED PO SCH (08:51)
[2018-12-31] MEDS ORDERED: TOPROL XL PO ONE (09:44)
--- NOTE | 2018-12-31 12:53 | PROGRESS NOTE ---
DATE: 12/31/2018 INTERVAL HISTORY: No acute events overnight according to surgeon's note. His drains are putting out both hepatic and pleural fluid drain were putting out only 40 to 45 mL and they were serous appearing. and so the surgery team had decided to pull out the drain. SUBJECTIVE: The patient was a little agitated in the morning time and pulled out his IV line. He did pull out his PICC line yesterday as well. However, he appears pretty calm, though, when I saw him. He denies any distress. He denies chest pain or shortness of breath or any other new complaints. 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 His pulse has been between 80s to 90s. He is hypertensive with blood pressure 140-180 systolic. He is breathing 97% on room air. PHYSICAL EXAMINATION: General: He does not appear in any acute distress. Oral cavity is moist. Lungs: Air entry bilaterally equal. No wheeze or rhonchi. Mild crackles bilateral infrascapular region. He has a dressing over the right side of his rib cage and flank of previous chest tube, chest drain and abdominal drain, which all have been removed. No lower extremity edema. Abdomen: Soft, nontender. He is oriented to himself, and to me. Follows simple commands. He does not appear in any acute distress. LABORATORY DATA: No new labs today. EKG: Performed yesterday had suggested sinus tachycardia. He did have mild left ventricular hypertrophy voltage criteria. There were also T-wave inversions in anterior and lateral leads, which are more pronounced than the EKG he had before. MICROBIOLOGY: So far the drain culture has not shown any growth. ASSESSMENT AND PLAN: 1. Sepsis due to right lower lobe pneumonia, empyema, right-sided hepatic abscess, now status post right-sided chest tube, right-sided posterior pleural space drain and right-sided hepatic lobe drain. All have been removed. Continue intravenous Zosyn as per Infectious Disease recommendation. He is now status post linezolid. I will follow up with final culture sensitivity results which are no growth to date. He did have prior history of treated tuberculosis. However, the QuantiFERON test was intermediate, so he was taken off at 1 precautions. 2. Acute exacerbation of chronic obstructive pulmonary disease. Continue albuterol ipratropium nebulization. I will stop his intravenous steroids since he has not been wheezing. He received almost 5 days of intravenous steroids at least. 3. Acute encephalopathy, now improving, likely hospital-acquired, critical illness induced delirium in the setting of baseline bipolar mood disorder and dementia. Continue nighttime quetiapine and as needed haloperidol. 4. Essential hypertension. Increase home metoprolol. Continue high-dose lisinopril and p.r.n. labetalol. Considering the EKG changes, I would get a troponin and an echocardiogram. The patient has baseline dementia and may not be able to verbalize chest discomfort symptoms. 5. History of bipolar mood disorder and dementia. Continue home lamotrigine, topiramate, donepezil and memantine. 6. Nutrition. Continue p.o. nutrition as tolerated. 7. Disposition. Patient remains inside the hospital. As he appears hemodynamically stable, my plan is to transfer him out of ICU to likely step-down unit or routine medical floor. I called the patient's daughter and informed her about patient's clinical condition and answered all of her questions. cc: Mikey Christina MD MTDD
--- NOTE | 2018-12-31 13:59 | GENERAL SURGERY PROGRESS NOTE ---
DATE: 12/31/2018 SUBJECTIVE: The patient denies any complaints overnight. OBJECTIVE: Vital Signs: T-max a 100.7 degrees, pulse 80s to 107, respiratory rate 11 to 17. Blood pressure 150s to 180s systolic. O2 saturation 95 to 99 percent. General: He is awake, alert, no acute distress. He is noted to be in restraints but not actively agitated at this time. Respiratory: Bilateral breath sounds. No increased work of breathing. Gastrointestinal: Soft, nondistended, nontender. LABORATORY: None at this time. ASSESSMENT AND PLAN: 73-year-old male status post chest tube and percutaneous drainage for right pleural effusion and hepatic abscesses. The tubes have been removed. The cultures have been negative. No further surgical plans at this time. cc: Rivas Sánchez MD
[2018-12-31] MEDS: LAMICTAL PO SCH (20:32)
[2018-12-31] MEDS: SEROQUEL PO SCH (20:32)
[2018-12-31] MEDS: LIPITOR PO SCH (20:32)
[2019-01-01] MEDS: ZOSYN 3.375 GM in NS 50 ML IV SCH ×4 (03:20→20:45)
[2019-01-01] MEDS: HALDOL IV PRN (03:20)
[2019-01-01] MEDS: DUONEB (A & A) INH SCH ×6 (03:50→22:59)
[2019-01-01] MEDS: LOVENOX SUBQ SCH (06:29)
[2019-01-01 07:46] LABS: EOS# 0.11 X1000 (0.0-0.7); EOS% 0.8 % (0.0-10.0); HEMATOCRIT 37.7 % (42.0-52.0); HEMOGLOBIN 11.4 g/dL (14.0-18.0); IMM GRAN# 0.07 X1000 (0.0-0.04); IMM GRAN% 0.5 % (0.0-0.5); LYMPH# 1.82 X1000 (1.2-3.4); MCH 25.9 PG (27-31); MCHC 30.2 g/dL (33-37); MCV 85.7 FL (81-99); MONO# 0.62 X1000 (0.11-0.59); MONO% 4.4 % (1.7-9.3); MPV 11.1 FL (7.4-10.4); NEUT% 81.3 % (42.2-75.2); PLT 320 X1000 (130-400); RDW 20.1 % (11.5-14.5); WBC 14.02 X1000 (4.8-10.8)
[2019-01-01 08:08] LABS: AGAP 13; BUN 26 mg/dL (8-22); CALCIUM 8.9 mg/dL (8.8-10.2); CHLORIDE 105 mmol/L (98-107); COSMO 293; CREATININE 1.1 mg/dL (0.7-1.2); ESTIMATED GFR > 60; GLUCOSE 127 mg/dL (70-104); POTASSIUM 3.4 mmol/L (3.5-5.1); SODIUM 144 mmol/L (136-145); TCO2 26 mmol/L (25-35)
[2019-01-01] MEDS: PROTONIX IV SCH (08:33)
[2019-01-01] MEDS: THERA M PLUS PO SCH (08:34)
[2019-01-01] MEDS: PRINIVIL PO SCH (08:34)
[2019-01-01] MEDS: TOPAMAX PO SCH ×2 (08:34→20:45)
[2019-01-01] MEDS: TOPROL XL PO SCH (08:34)
[2019-01-01] MEDS: ARICEPT PO SCH (08:34)
[2019-01-01] MEDS: SODIUM CHLORIDE 0.9% INJ SCH (08:34)
[2019-01-01] MEDS: NAMENDA PO SCH ×2 (08:34→20:45)
--- NOTE | 2019-01-01 09:19 | Diag Imaging Result Doc PS360 ---
EXAM: CHEST-PORTABLE - 01/01/2019 HISTORY: abnormal exam TECHNIQUE: Portable chest COMPARISON: 12/30/2018 FINDINGS: The right chest tube and PICC have been removed. The partial right hemithorax opacification appears stable. The left lung appears clear. There is no pneumothorax identified. IMPRESSION: Interval removal of right chest tube and PICC. Otherwise, stable exam compared to prior. Electronically signed by Dejon Mccann 01/01/2019 9:16 AM
--- NOTE | 2019-01-01 10:01 | ECHO REPORT ---
ORDER DATE: 12/31/2018 MEASUREMENTS: Left ventricular end-diastolic diameter 4.0, end-systolic murmur 2.6, septal thickness 1.2, posterior wall thickness 1.2, aortic root 3.3, left atrium 3.4. SUMMARY: 1. Adequate quality study. 2. Very mild sclerosis of trileaflet aortic valve demonstrated with normal aortic valve opening evident. Peak gradient across the aortic valve is less than 10 mmHg. Mitral, tricuspid, and pulmonic valves are without evidence of structural abnormality with trace tricuspid regurgitation and trace pulmonic insufficiency. The aortic root is normal in size. 3. Normal left ventricular chamber size with mild concentric left ventricular hypertrophy demonstrated. Estimated left ejection fraction of approximately 55%. No regional wall motion abnormalities are evident. Doppler suggests grade 1 left ventricular diastolic dysfunction. Left atrium, right atrium, and right ventricle are normal in size with grossly preserved right ventricular systolic function. 4. No pericardial effusion. 5. Appearance of inferior vena cava suggests normal central venous pressure. cc: MD Mikey Clinton MD
--- NOTE | 2019-01-01 10:24 | GENERAL SURGERY PROGRESS NOTE ---
DATE: 01/01/2019 SUBJECTIVE: He has had no acute events or complaints overnight. He denies chest pain, shortness of breath, nausea, or vomiting. OBJECTIVE: He is afebrile. Vital signs are stable.General: He is awake, alert, and oriented, in no acute distress. Respiratory: Bilateral breath sounds. No increased work of breathing. Gastrointestinal: Soft, nontender, nondistended. ASSESSMENT AND PLAN: A 73-year-old male, status post drainage of right pleural effusion and hepatic abscesses. He is improved. He is afebrile. His cultures were negative. No further surgical plans at this time. cc: Rivas Sánchez MD
--- NOTE | 2019-01-01 15:11 | PROGRESS NOTE ---
DATE: 01/01/2019 INTERVAL HISTORY: Mr. Sherman was transfer from ICU to the floor. He did not have any acute overnight events. SUBJECTIVE: His is in left-sided restraint. Does not appear in any acute distress. 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 He appears alert and awake. He is not oriented. He is oriented to himself. He could tell me his date and his family member's name. He is not oriented to place though. OBJECTIVE: Vital signs: Temperature 98.1 degrees, pulse 98, respiration 19, blood pressure 135/72, saturating 98% on room air. General: Does not appear in any acute distress. HEENT: Oral cavity is moist. Lungs: Air entry bilaterally equal. No wheeze or rhonchi. Examination, however, is limited because of body habitus and restraints. He does have mild crackles in the right infrascapular region. He has a dressing over his right chest, lower part and right upper quadrant at the site of previous drain. Extremities: No lower extremity edema. Abdomen: Otherwise abdomen is soft, nontender. LAB DATA: Suggests persistent leukocytosis, normocytic anemia, normal platelet count, hypokalemia, normal kidney function. His troponin was negative. Echocardiogram suggested normal ejection fraction of 55%. ASSESSMENT AND PLAN: 1. Sepsis due to right lower lobe pneumonia, empyema, right-sided hepatic abscess, now status post right-sided chest tube, right-sided posterior pleural space drain, and right-sided hepatic lobe drain; all have been removed. Continue intravenous Zosyn as per ID recommendation. All cultures results during this hospital admission have been negative. He previously had history of treated tuberculosis. The QuantiFERON test this admission was only intermediate, so his droplet precautions were taken off. 2. Acute exacerbation of chronic obstructive pulmonary disease. Continue albuterol ipratropium nebulization. His acute exacerbation has resolved. He is status post 5 day course of intravenous steroids. 3. Acute encephalopathy, now improved. Currently, he appears to be baseline. His encephalopathy was likely a combination of hospital-acquired and critical illness-induced delirium. 4. History of bipolar mood disorder and dementia. Continue him on nighttime quetiapine as needed, haloperidol, his home lamotrigine, topiramate, donepezil, and memantine. 5. Essential hypertension. Continue current dose of metoprolol, lisinopril. Currently better controlled. His EKG did have ST depressions in the anterolateral leads. However, troponins was negative and echocardiogram did not detect any regional wall motion abnormalities. I will repeat EKG tomorrow to document changes. 6. Nutrition. Continue p.o. nutrition as tolerated. 7. Disposition. The patient remains inside the hospital. My plan is to transfer him back to his group home facility within the next 24 to 48 hours if he remains off restraints. Plan of care was discussed with him. All of his questions have been answered. cc: Mikey Christina MD MTDD
[2019-01-01] MEDS: PATIENT'S OWN MED PO SCH (15:59)
--- NOTE | 2019-01-01 18:35 | PULMONOLOGY PROGRESS NOTE ---
DATE: 01/01/2019 SUBJECTIVE: The patient is awake, alert, and conversant. He reports he has a good appetite. He has no significant sputum production. OBJECTIVE: Vital Signs: The patient has been afebrile for the last 24 hours. BP 140/79, heart rate 88, respiratory rate 19, oxygen saturation 99%. HEENT: Pupils are equal and reactive. Oropharynx is clear. Neck: Supple. Chest: Reveals decreased breath sounds right base. Cardiac exam: S1, S2. Abdomen: Soft. Extremities: Without edema. LABORATORIES: White blood count increased to 14.02, hemoglobin 11.4, platelet count 320,000. Sodium 144, potassium 3.7, chloride 105, bicarbonate 26, BUN 26, creatinine 1.1. IMPRESSIONS: This is a 73-year-old with: 1. Empyema. 2. Hepatic abscess. 3. Component of dementia. 4. Parkinson disease. 5. Chronic obstructive pulmonary disease. 6. History of alcoholism. DISCUSSION: Overall, patient continues to improve. He is afebrile. He has had increase in white blood count. RECOMMENDATIONS: 1. Continue antibiotic regimen under the direction Dr. Ti Feldman. 2. Encourage bronchial hygiene. 3. Encourage p.o. intake. 4. Follow up CBC. If his CBC continues to climb he will need a re-scan of the abdomen and chest. cc: Devin Ly MD
[2019-01-01] MEDS: KLOR-CON PO SCH ×2 (19:04→22:24)
[2019-01-01] MEDS: LAMICTAL PO SCH (20:45)
[2019-01-01] MEDS: SEROQUEL PO SCH (20:45)
[2019-01-01] MEDS: LIPITOR PO SCH (20:45)
[2019-01-02] MEDS: ZOSYN 3.375 GM in NS 50 ML IV SCH ×4 (02:44→21:47)
[2019-01-02] MEDS: DUONEB (A & A) INH SCH ×3 (04:05→11:33)
[2019-01-02] MEDS: LOVENOX SUBQ SCH (05:57)
[2019-01-02 07:24] LABS: BASO# 0.01 X1000 (0.0-0.2); BASO% 0.1 % (0.0-0.8); EOS# 0.04 X1000 (0.0-0.7); EOS% 0.2 % (0.0-10.0); HEMATOCRIT 33.6 % (42.0-52.0); HEMOGLOBIN 10.4 g/dL (14.0-18.0); IMM GRAN# 0.07 X1000 (0.0-0.04); IMM GRAN% 0.4 % (0.0-0.5); LYMPH# 1.07 X1000 (1.2-3.4); LYMPH% 5.9 % (20.5-51.1); MCH 26.4 PG (27-31); MCV 85.3 FL (81-99); MONO# 0.99 X1000 (0.11-0.59); MONO% 5.5 % (1.7-9.3); MPV 9.9 FL (7.4-10.4); NEUT# 15.87 X1000 (1.4-6.5); NEUT% 87.9 % (42.2-75.2); PLT 316 X1000 (130-400); RBC 3.94 XMIL (4.7-6.1); RDW 20.2 % (11.5-14.5); WBC 18.05 X1000 (4.8-10.8)
--- NOTE | 2019-01-02 07:26 | EKG Report ---
Test Performed on : 01/02/2019 06:58:29 AM Test Reason : Follow up anterolateral ST changes Blood Pressure : / mmHG Vent. Rate : 103 BPM Atrial Rate : 103 BPM P-R Int : 150 ms QRS Dur : 098 ms QT Int : 374 ms P-R-T Axes : 063 053 111 degrees QTc Int : 489 ms Sinus tachycardia. Voltage criteria for left ventricular hypertrophy Nonspecific T wave abnormality Abnormal ECG When compared with ECG of 30-DEC-2018 11:10, ST no longer depressed in Inferior leads ST elevation now present in Anterior leads T wave inversion no longer evident in Anterior leads Confirmed by Jin Marroquin MD ([id number]) on 01/02/2019 9:16:11 PM
[2019-01-02] MEDS: NAMENDA PO SCH ×2 (08:22→21:48)
[2019-01-02] MEDS: PROTONIX IV SCH (08:22)
[2019-01-02] MEDS: TOPAMAX PO SCH ×2 (08:23→21:48)
[2019-01-02] MEDS: ARICEPT PO SCH (08:23)
[2019-01-02] MEDS: THERA M PLUS PO SCH (08:23)
[2019-01-02] MEDS: PRINIVIL PO SCH (08:23)
[2019-01-02] MEDS: TOPROL XL PO SCH (08:23)
[2019-01-02] MEDS: PATIENT'S OWN MED PO SCH (08:23)
[2019-01-02 09:09] LABS: BANDS 3 % (0-1); LYMPHS 7 % (21-51); MONO 4 % (1-9); SEGS 86 % (42-75)
--- NOTE | 2019-01-02 16:58 | Diag Imaging Result Doc PS360 ---
EXAM: CT THORAX/ABDOMEN W/CONTRAST INDICATION: Eval for reaccumulating empyema/hepatic abscess TECHNIQUE: This exam was performed using automated exposure control, adjustment of mA or kV according to patient size, and/or use of iterative reconstruction technique. COMPARISON: CT chest dated 12/26/[address] abdomen and pelvis dated 12/22/2018 FINDINGS: CHEST: Large loculated pleural fluid collection on the right has decreased somewhat in size during the interval. There are a few tiny internal gas droplets within the collection on the right. The smaller layering pleural effusion on the left has resolved. There has been improvement of the atelectasis adjacent to the pleural fluid collection on the right. The milder atelectasis on the left at the base has resolved. Extensive pulmonary emphysema is again noted. The mediastinum is essentially stable as compared to the previous study. ABDOMEN: The known abscess in the right hepatic lobe near the dome of the liver has decreased in size due to interval CT-guided drainage. It measures approximately 4.2 x 2.3 cm axially. There is surrounding parenchymal edema. The liver is stable, otherwise. There is a stable left adrenal nodule. There are small simple renal cysts. The spleen and pancreas are essentially unremarkable. The abdominal segments of the GI tract are unremarkable. Advanced aortic atherosclerotic disease again noted. IMPRESSION: 1.Interval decrease in size in the complex loculated pleural fluid collection on the right and resolution of the smaller simple pleural fluid collection on the left. 2.Decrease in size in the right hepatic lobe fluid collection consistent with abscess as a result of interval CT-guided drainage. Electronically signed by Chris Peck 01/02/2019 4:56 PM
--- NOTE | 2019-01-02 17:28 | PROGRESS NOTE ---
DATE: 01/02/2019 INTERVAL HISTORY: Patient was transferred to floor and he did not have any acute overnight event, though in the morning time, he pulled out his IV line and new IV line was placed. SUBJECTIVE: The patient is sitting in the bed. He has not eaten his lunch, which I encouraged him to. He states he was not hungry. However, he was able to chew and swallow using his right hand and left hand, coordinating fashion. OBJECTIVE: Vital Signs: Currently, vitals temperature of 98.2, pulse 101, respiratory 20, blood pressure 132/65, saturating 96% on room air. General: On physical examination, does not appear in any acute distress oral cavity is moist. Lungs: Air entry decreased in right lung base and lower infrascapular region without any wheeze, rhonchi, or crackles. Adequate air entry on left hemithorax. Abdomen: Soft, nontender. Cardiovascular: S1, S2 normal. No murmur, rub or gallop. No lower extremity edema. LABS: Suggestive of worsening leukocytosis, normocytic anemia, normal platelet count. Previously, his troponins were negative and his echocardiogram did not have any regional wall motion abnormality. Microbiology: No positive data. CT scan of the abdomen and pelvis has been ordered. ASSESSMENT AND PLAN: 1. Sepsis due to right lower lobe pneumonia, empyema, right-sided hepatic abscess, status post right-sided chest tube, right-sided posterior pleural space drain and right-sided hepatic lobe drain which all have been removed. Continue intravenous Zosyn and follow-up repeat CT scan of the abdomen and pelvis for decreased breath sound on right infrascapular region and worsening leukocytosis. Though previously had history of treated tuberculosis, QuantiFERON test on this admission was only intermediate. 2. Acute exacerbation of chronic obstructive pulmonary disease. Continue albuterol ipratropium nebulization. His COPD exacerbation has resolved and he is status post 5 days of intravenous steroids. 3. Acute encephalopathy, likely a combination of baseline dementia, history of bipolar mood disorder and hospital-acquired delirium. Currently, he appears to be at his baseline. Continue his home medication off lamotrigine, topiramate, donepezil and memantine. Continue nighttime quetiapine and p.r.n. haloperidol to protect essential lines. 4. Essential hypertension. Continue current dose of metoprolol, lisinopril. His EKG did have intermittent changing ST-segment elevations and depressions, but his troponin yesterday was unremarkable clinically and his echocardiogram had normal ejection fraction. DISPOSITION: The patient continues to remain inside the hospital for worsening leukocytosis, though he is from assisted living facility, he would eventually need rehab after discharge. Plan of care was discussed with him. I will update the family member later on. cc: Mikey Christina MD
[2019-01-02] MEDS: DUONEB (A & A) INH PRN (19:18)
[2019-01-02] MEDS: LAMICTAL PO SCH (21:47)
[2019-01-02] MEDS: SEROQUEL PO SCH (21:48)
[2019-01-02] MEDS: LIPITOR PO SCH (21:48)
[2019-01-02] MEDS: ZYVOX PO SCH (21:52)
[2019-01-03] MEDS: HALDOL IV PRN (00:15)
[2019-01-03] MEDS: ZOSYN 3.375 GM in NS 50 ML IV SCH ×4 (03:52→22:23)
--- NOTE | 2019-01-03 05:45 | INFECTIOUS DISEASE PROGRESS NO ---
DATE: 01/02/2019 PRESENT ILLNESS: Mr. Sherman has pneumonia with empyema and a liver lesion. Based on his CT scan today, these are improving. Unfortunately there is a progressive leukocytosis. MEDICATIONS: He is receiving Zosyn 3.375 g IV every 6 hours. PHYSICAL EXAMINATION: Vital Signs: Temperature is 98.2 degrees, pulse rate 91 , respiratory rate 16, blood pressure 132/65, O2 saturation is 95% on room air. General: This is a chronically ill- appearing elderly gentleman. He is lying in the bed currently in no acute distress. HEENT: Atraumatic, normocephalic. Oral mucous membranes are pink and moist. Conjunctivae are pale. Neck: Supple. Trachea is midline. Cardiovascular: Heart rate and rhythm are regular. Normal sinus rhythm on the monitor. Radial and pedal pulses are +1 bilaterally. Respiratory: Lung sounds are generally clear. Diminished in the bases. Abdomen: Soft, flat, and nontender. Bowel sounds are active. Neurologic: The patient is awake, alert and appropriate. He is forgetful. Able to ambulate around the room with assistance and generalized weakness. LABORATORY AND X-RAY: Today his white count is 18.05, hemoglobin 10.4, platelet count 316,000. No chemistry today; however, yesterday his creatinine was 1.1, and estimated GFR of greater than 60. CT of the abdomen and chest today showed interval decrease in the size of a complex loculated pleural fluid collection on the right, and resolution of a smaller simple pleural fluid collection on the left. There is also a decrease in size in the right hepatic lobe fluid collection consistent with abscess, as a result of interval CT-guided drainage. ASSESSMENT AND PLAN: Mr. Sherman has pneumonia with empyema, which is clearing. He has also had improvement in the hepatic fluid collection. He has been receiving Zosyn; however, it is noted that ever since the Zyvox was discontinued, his leukocytosis has progressed. Today we will start him back on the Zyvox 600 mg by mouth every [address] Feldman has spoken with Dr. Christina about the possibility of Long-Term Acute Care transfer, which he will look into. At this point we will continue Zosyn and Zyvox, and recheck lab values in the morning. These plans have been discussed with and recommended by Dr. Feldman. COMORBIDITIES: For Mr. Vener include that he is elderly with COPD, dementia, Parkinson's disease, and history of cigarette, alcohol and drug abuse. Dictated by ZA Iqbal for Ti Feldman MD This chart was documented by, ZA Iqbal and accurately reflects the services performed, treatment plan and medical decisions as attested by the providers signature Ti Feldman MD. cc: Ti Feldman MD [facility]
--- NOTE | 2019-01-03 06:05 | Diag Imaging Result Doc PS360 ---
EXAM: CT HEAD W/O CONTRAST HISTORY: Fall,AMS,Pt on lovenox TECHNIQUE: CT head without contrast COMPARISON: 12/20/2018 FINDINGS: No parenchymal hemorrhage. No epidural or subdural hematoma. No subarachnoid hemorrhage. There is atrophy with chronic microvascular ischemic changes. No mass identified on this noncontrasted exam. No hydrocephalus. No skull fracture. IMPRESSION: No hemorrhage. No injury. This exam was performed using automated exposure control, adjustment of mA or kV according to patient size, and/or use of iterative reconstruction technique. Electronically signed by Alberto Rm 01/03/2019 6:03 AM
[2019-01-03] MEDS: LOVENOX SUBQ SCH (06:10)
[2019-01-03 07:56] LABS: BASO# 0.01 X1000 (0.0-0.2); BASO% 0.1 % (0.0-0.8); EOS# 0.04 X1000 (0.0-0.7); EOS% 0.2 % (0.0-10.0); HEMATOCRIT 34.4 % (42.0-52.0); HEMOGLOBIN 10.6 g/dL (14.0-18.0); IMM GRAN# 0.06 X1000 (0.0-0.04); IMM GRAN% 0.3 % (0.0-0.5); LYMPH# 1.26 X1000 (1.2-3.4); LYMPH% 7.2 % (20.5-51.1); MCH 26.4 PG (27-31); MCHC 30.8 g/dL (33-37); MCV 85.8 FL (81-99); MONO# 0.93 X1000 (0.11-0.59); MONO% 5.3 % (1.7-9.3); MPV 10.1 FL (7.4-10.4); NEUT# 15.15 X1000 (1.4-6.5); NEUT% 86.9 % (42.2-75.2); PLT 372 X1000 (130-400); RBC 4.01 XMIL (4.7-6.1); RDW 20.6 % (11.5-14.5); WBC 17.45 X1000 (4.8-10.8)
[2019-01-03 08:11] LABS: AGAP 11; BUN 22 mg/dL (8-22); CALCIUM 9.3 mg/dL (8.8-10.2); CHLORIDE 105 mmol/L (98-107); COSMO 282; CREATININE 1.1 mg/dL (0.7-1.2); ESTIMATED GFR > 60; GLUCOSE 122 mg/dL (70-104); POTASSIUM 3.6 mmol/L (3.5-5.1); SODIUM 139 mmol/L (136-145); TCO2 23 mmol/L (25-35)
[2019-01-03] MEDS: PROTONIX IV SCH (09:06)
[2019-01-03] MEDS: PRINIVIL PO SCH (09:06)
[2019-01-03] MEDS: ARICEPT PO SCH (09:07)
[2019-01-03] MEDS: PATIENT'S OWN MED PO SCH (09:07)
[2019-01-03] MEDS: TOPROL XL PO SCH (09:07)
[2019-01-03] MEDS: TOPAMAX PO SCH ×2 (09:07→22:24)
[2019-01-03] MEDS: THERA M PLUS PO SCH (09:07)
[2019-01-03] MEDS: ZYVOX PO SCH ×2 (09:07→22:24)
[2019-01-03] MEDS: NAMENDA PO SCH ×2 (09:08→22:23)
--- NOTE | 2019-01-03 17:06 | PROGRESS NOTE ---
DATE: 01/03/2019 INTERVAL HISTORY: He got a CT scan abdomen and pelvis, which has suggested persistent right lung and right hepatic lobe abscess; however, they have decrease in the size. The patient had worsening leukocytosis, and linezolid was added to his regimen. He also had a fall due to confusion. CT head was unremarkable. He was given night time Haldol. SUBJECTIVE: The patient did have episode of agitation requiring haloperidol at nighttime. He is denying any new complaints, sitting in the chair comfortably. He is not able to remember what kind of food he ate. VITALS: Currently temperature of 97.9 degrees, pulse 93, respiratory rate 15, blood pressure 130/64, saturating 100% on room air. PHYSICAL EXAMINATION: General: Does not appear in any acute distress, thin- built man. HEENT: Oral cavity is moist. Lungs: Air entry bilaterally equal, except decreased air entry in right infrascapular region, without any wheeze, rhonchi, or crackles. Adequate air entry on left hemithorax. Abdomen: Soft, nontender. Cardiovascular: S1, S2 normal. No murmur, rub, or gallop. Extremities: No lower extremity edema. Neurologic: He is alert, oriented to himself and his date, does not know today's date or place. LABORATORY DATA: Suggestive of persistent leukocytosis, normocytic anemia, normal platelet count. Normal kidney function. Slightly lower potassium and magnesium levels, for which he is getting repletion. ASSESSMENT AND PLAN: 1. Sepsis due to right lower lobe pneumonia, empyema, right-sided hepatic abscess status post right-sided chest tube, right-sided posterior pleural space drain, and right- sided hepatic lobe drain, which all have been removed since 12/31/2018. Continue intravenous Zosyn and p.o. linezolid as per ID recommendations for worsening leukocytosis. Chest and abdomen CT yesterday had suggested interval decrease in loculated pleural fluid collection on the right and decrease in the size of right hepatic lobe fluid collection. 2. Acute exacerbation of chronic obstructive pulmonary disease (COPD), resolved status post 5 days course of steroids. Continue albuterol/ipratropium nebulization. 3. Acute encephalopathy, resulting in fall at nighttime. Head CT did not detect any hemorrhage. This is likely in the combination of baseline dementia, history of bipolar mood disorder, and hospital-acquired delirium. Currently, he appears to be at baseline. Continue home lamotrigine, topiramate, donepezil, and memantine with nighttime quetiapine p.r.n. and p.r.n. haloperidol. 4. Essential hypertension. Continue metoprolol, lisinopril. His EKG has intermittent ST-segment mild elevation and depression. However, troponins have been unremarkable. An echocardiogram had normal ejection fraction without regional wall motion abnormalities. DISPOSITION: Considering patient's worsening leukocytosis and though the size of the abscesses have decreased, they are persistent, I would suggest the patient might benefit from a long-term acute care facility. Social Work team has been informed about that. Plan of care was discussed with the Social Work team. I had informed the patient's daughter about plan of care, and I will try and reach out to her again tomorrow. cc: Mikey Christina MD MTDD
[2019-01-03] MEDS: MAG-OX PO SCH ×2 (17:09→22:29)
[2019-01-03] MEDS: KLOR-CON PO SCH ×2 (17:10→22:29)
--- NOTE | 2019-01-03 20:45 | INFECTIOUS DISEASE PROGRESS NO ---
DATE: 01/03/2019 PRESENT ILLNESS: Mr. Santana has pneumonia, empyema and a right hepatic lobe abscess. There is also a progressive leukocytosis. MEDICATIONS: Today is day 1 of Zyvox 600 mg p.o. every 12 hours and day 13 of Zosyn 3.375 g IV every 6 hours. PHYSICAL EXAMINATION: Vital Signs: Temperature is 97.9 degrees, pulse rate 93 , respiratory rate 15, blood pressure 131/64, O2 saturation is 100% on room air. General: This is a chronically ill-appearing elderly gentleman. He is sitting up in bed eating supper; currently in no acute distress. HEENT: Atraumatic, normocephalic. Oral mucous membranes are pink and moist. Conjunctivae are pale. Neck: Supple. Trachea is midline. Cardiovascular: Heart rate is regular. Pedal and radial pulses are +1 bilaterally. Respiratory: Lung sounds are clear to auscultation, diminished in the bases. Abdomen: Soft, flat and nontender. Bowel sounds are active. Neurologic: He is awake, alert and confused, oriented to person only. Able to move all extremities with generalized weakness LABORATORY AND X-RAY: Today his white count 17.45, hemoglobin 10.5, platelet count 372,000, creatinine is 1.1, estimated GFR is greater than 60. Apparently, during the night last night he fell and had a CT of his head which showed no hemorrhage or injury. ASSESSMENT AND PLAN: Mr. Sherman is being treated for pneumonia with empyema and hepatic fluid collection all of which are improving based on his CT scan done yesterday. He is on Zosyn and Zyvox which we will continue at this time. We are hoping the leukocytosis will resolve once he has been on Zyvox for a few days. The tentative plan is for him is to go to an LTACH. These plans have been discussed with and recommended by Dr. Feldman. COMORBIDITIES: Include that he is elderly with COPD, dementia, Parkinson's disease and history of tobacco, alcohol and drug abuse. Dictated by ZA Iqbal for Ti Feldman MD This chart was documented by, ZA Iqbal and accurately reflects the services performed, treatment plan and medical decisions as attested by the providers signature Ti Feldman MD. cc: Ti Feldman MD [facility] CENTERJesse
[2019-01-03] MEDS: DUONEB (A & A) INH PRN (21:10)
[2019-01-03] MEDS: SEROQUEL PO PRN (22:24)
[2019-01-03] MEDS: LAMICTAL PO SCH (22:24)
[2019-01-03] MEDS: LIPITOR PO SCH (22:24)
[2019-01-04] MEDS: KLOR-CON PO SCH (00:11)
[2019-01-04] MEDS: ZOSYN 3.375 GM in NS 50 ML IV SCH ×4 (04:29→22:01)
[2019-01-04] MEDS: LOVENOX SUBQ SCH (06:34)
[2019-01-04] MEDS: PRILOSEC PO SCH (06:47)
[2019-01-04] MEDS: PATIENT'S OWN MED PO SCH (09:00)
[2019-01-04] MEDS: TOPROL XL PO SCH (10:02)
[2019-01-04] MEDS: ARICEPT PO SCH (10:02)
[2019-01-04] MEDS: TOPAMAX PO SCH ×2 (10:02→22:00)
[2019-01-04] MEDS: NAMENDA PO SCH ×2 (10:03→21:59)
[2019-01-04] MEDS: ZYVOX PO SCH ×2 (10:03→22:04)
[2019-01-04] MEDS: MAG-OX PO SCH ×2 (10:03→22:01)
[2019-01-04] MEDS: THERA M PLUS PO SCH (10:03)
[2019-01-04] MEDS: PRINIVIL PO SCH (10:03)
[2019-01-04] MEDS: HALDOL IV PRN ×2 (10:04→13:19)
--- NOTE | 2019-01-04 18:00 | INFECTIOUS DISEASE PROGRESS NO ---
DATE: 01/04/2019 PRESENT ILLNESS: The patient had pneumonia, which has cleared. He also had an empyema and right hepatic lobe abscess. The patient has had a progressive leukocytosis, but today it actually was less than yesterday. MEDICATIONS: This is day 2 of Zyvox and day 14 of Zosyn. PHYSICAL EXAMINATION: Vital Signs: Temperature is 98.2, pulse 101, respirations 18, blood pressure 114/58. General: This is a hdvbjmxbkro-pvm-gtcxqfkhe elderly male. He is in no acute distress. Head/eyes/ears/nose/throat: He can hear my spoken words and see near objects. He does not have any white patches on his tongue. Neck: No meningismus. Lungs: Clear to auscultation, but they are decreased on the right side. Cardiovascular: Heart rate is regular. Abdomen: Soft and nontender. Neurologic: The patient is alert. He is able to carry on a coherent conversation. He can move his extremities. LAB AND X-RAY: CBC today shows a white count of 17,450, hemoglobin 10.6, and platelet count 372,000. Creatinine is 1.1. GFR is greater than 60. There is no new radiographic study today. ASSESSMENT AND PLAN: Patient has been treated for pneumonia and has cleared. The patient also has an empyema and a right hepatic and a right hepatic lobe abscess. My plan is to continue the current antibiotic treatment. COMORBIDITIES: The patient is elderly. He has COPD, dementia and Parkinson disease. He has a history of tobacco, alcohol and drug abuse. cc: Ti Feldman MD
--- NOTE | 2019-01-04 19:01 | PROGRESS NOTE ---
DATE: 01/04/2019 OVERNIGHT INTERVAL HISTORY: No acute events. SUBJECTIVE: The patient is alert and awake, does not appear to be in distress. He answers most questions and follows simple commands. However, a lot of times he is not able to remember the past events next currently. OBJECTIVE: Vital signs: Currently, temperature of 98.2 degrees, pulse 101, respiratory rate 18, blood pressure 114/58, saturating 98% on room air. General: He does not appear in any acute distress. HEENT: Oral cavity is moist. Lungs: Air entry bilaterally equal, except decreased air entry in the right infrascapular region. No wheeze or rhonchi. Heart: S1, S2 normal. No murmur, rub, or gallop. Abdomen: Soft, nontender. Extremities: No lower extremity edema. LABORATORY DATA: Suggestive of persistent leukocytosis, normocytic anemia, normal platelet count. Normal electrolytes. Normal kidney function. MICROBIOLOGY: No positive data during this admission. ASSESSMENT AND PLAN: 1. Sepsis due to right lower lobe pneumonia, empyema, right-sided hepatic abscess status post right-sided chest tube, right-sided posterior pleural space drain, right-sided hepatic lobe drain, status post removal of all the drains since 12/31/2018, now with worsening leukocytosis. Continue intravenous Zosyn and p.o. linezolid as per ID. 2. Acute encephalopathy resulting in fall on 01/03/[address] for any acute hemorrhage, likely in the combination of baseline dementia, history of bipolar mood disorder and hospital-acquired delirium. Currently, he appears to be stable at baseline. Continue home lamotrigine, topiramate, donepezil, memantine, with nighttime quetiapine p.r.n., and p.r.n. haloperidol. 3. Essential hypertension. Continue metoprolol, lisinopril. His EKG has had intermittent ST- segment changes with negative troponins and echocardiogram suggestive of normal ejection fraction without regional wall motion abnormalities. 4. Acute exacerbation of chronic obstructive pulmonary disease during this admission has resolved after steroid course. Continue albuterol/ipratropium nebulization. DISPOSITION: Considering the patient's empyema and hepatic lobe abscess, it was decided the patient might benefit from long-term acute care facility. Social Work team is working on it. I will wait until his leukocytosis starts improving and is better before considering discharging to long-term acute care facility. The search for the facility is on. I had discussed his care with the patient's daughter on phone 2 days ago and had answered all of her questions. cc: Mikey Christina MD
[2019-01-04] MEDS: LAMICTAL PO SCH (21:59)
[2019-01-04] MEDS: LIPITOR PO SCH (21:59)
[2019-01-05] MEDS: ZOSYN 3.375 GM in NS 50 ML IV SCH ×4 (03:28→21:37)
[2019-01-05] MEDS: LOVENOX SUBQ SCH (05:44)
[2019-01-05] MEDS: PRILOSEC PO SCH (06:02)
--- NOTE | 2019-01-05 07:56 | Diag Imaging Result Doc PS360 ---
EXAM: CHEST-1 VIEW 01/05/2019 HISTORY: SOB TECHNIQUE: AP portable at 0613 COMMENT: There is pleural thickening and/or loculated effusion on the right. This is not changed appreciably since 01/01/2019. There may be atelectasis versus pneumonia particularly in the right lower lobe. The left lung appears to be essentially clear and unchanged since the previous study. IMPRESSION: Loculated pleural effusion on the right with atelectasis and/or pneumonia. Electronically signed by Terrell Fuentes 01/05/2019 7:53 AM
[2019-01-05 08:34] LABS: BASO# 0.02 X1000 (0.0-0.2); BASO% 0.2 % (0.0-0.8); EOS# 0.05 X1000 (0.0-0.7); EOS% 0.5 % (0.0-10.0); HEMATOCRIT 32.8 % (42.0-52.0); HEMOGLOBIN 9.9 g/dL (14.0-18.0); LYMPH# 0.97 X1000 (1.2-3.4); LYMPH% 9.6 % (20.5-51.1); MCH 26.3 PG (27-31); MCHC 30.2 g/dL (33-37); MONO# 0.47 X1000 (0.11-0.59); MONO% 4.6 % (1.7-9.3); MPV 9.8 FL (7.4-10.4); NEUT# 8.62 X1000 (1.4-6.5); NEUT% 85.1 % (42.2-75.2); PLT 335 X1000 (130-400); RBC 3.77 XMIL (4.7-6.1); RDW 21.1 % (11.5-14.5); WBC 10.13 X1000 (4.8-10.8)
[2019-01-05 08:37] LABS: AGAP 12; BUN 20 mg/dL (8-22); CALCIUM 8.7 mg/dL (8.8-10.2); CHLORIDE 104 mmol/L (98-107); COSMO 276; CREATININE 0.9 mg/dL (0.7-1.2); ESTIMATED GFR > 60; GLUCOSE 128 mg/dL (70-104); POTASSIUM 3.8 mmol/L (3.5-5.1); SODIUM 136 mmol/L (136-145); TCO2 20 mmol/L (25-35)
[2019-01-05] MEDS: TOPAMAX PO SCH ×2 (08:43→21:37)
[2019-01-05] MEDS: PATIENT'S OWN MED PO SCH (08:44)
[2019-01-05] MEDS: PRINIVIL PO SCH (08:44)
[2019-01-05] MEDS: THERA M PLUS PO SCH (08:44)
[2019-01-05] MEDS: TOPROL XL PO SCH (08:44)
[2019-01-05] MEDS: NAMENDA PO SCH ×2 (08:44→21:37)
[2019-01-05] MEDS: MAG-OX PO SCH ×2 (08:44→21:37)
[2019-01-05] MEDS: ZYVOX PO SCH ×2 (08:44→21:37)
[2019-01-05] MEDS: ARICEPT PO SCH (08:44)
[2019-01-05 09:03] LABS: BANDS 4 % (0-1); EOS 2 % (1-10); LYMPHS 7 % (21-51); MONO 3 % (1-9); SEGS 84 % (42-75)
[2019-01-05 09:04] LABS: HYPOCHROM 1+; STOMATOCYTES 1+
--- NOTE | 2019-01-05 14:12 | PROGRESS NOTE ---
DATE: 01/05/2019 SUBJECTIVE: The patient is alert, awake, not in acute distress. He is answering most of my questions but he it takes time to get the answer back, he is not oriented to time, he knows this is a hospital, he does not remember the name of the hospital though, he does not remember if he lives by himself or with somebody else. OBJECTIVE: Vital Signs: Temperature 98.3 degrees, pulse 94, respiratory rate 19, blood pressure 131/68, oxygen saturation 98 on room air. HEENT: Head normocephalic, no trauma. PERRLA. Neck: Supple. No JVD. Central trachea. Chest: Decreased breath sounds at the right base. No wheezing. No rales. Cardiovascular: Regular rate and rhythm. Abdomen: Soft, nontender, nondistended. No hepatosplenomegaly. Extremities: No edema. No clubbing. No cyanosis. Neurological: The patient is alert, he is awake, he is following commands, he is answering most of my questions but the answers are slow, he is oriented x2, he is not oriented to time. LABORATORY DATA: WBC 10.1, hemoglobin 9.9, hematocrit 32.8, platelets 335,000. Sodium 136, potassium 3.8, chloride 104, bicarbonate 20, BUN 20, creatinine 0.9, glucose 128, calcium 8.7. ASSESSMENT AND PLAN: 1. Sepsis due to right lower lobe pneumonia/empyema and right-sided hepatic abscess status post right-sided chest tube, right-sided posterior pleural space drain, right-sided hepatic lobe drain status post removal of all the drains since 12/31/2018. The leukocytosis was normal on 12/30/2018 and then it started to increase from 01/01/2019 until 01/03/2019. Today the WBC is normal. I will monitor and I will wait for Infectious Disease department recommendations, the plan is to send this patient to a LTAC. 2. Acute encephalopathy resulting in a fall on 01/03/2019, negative CT scan, he likely has a baseline dementia, he has a history of bipolar mood disorder and probably hospital-acquired delirium, he seems to be stable at this moment. We will continue with the same management. 3. Essential hypertension. Continue with the same treatment. Echocardiogram showed normal ejection fraction without wall motion abnormalities. 4. Acute exacerbation of chronic obstructive pulmonary disease, treated, not in exacerbation at this moment. 5. The plan is to discharge this patient to a long-term facility, I will discuss the case with Infectious Disease department. Hopefully, we will discharge him tomorrow. cc: Walter Romo MD
--- NOTE | 2019-01-05 18:40 | INFECTIOUS DISEASE PROGRESS NO ---
DATE: 01/05/2019 PRESENT ILLNESS: The patient had pneumonia and empyema and hepatic lobe abscess. The patient was having progressive leukocytosis. It decreased yesterday, and today it further decreased into the normal range. MEDICATIONS: This is the 15th day of Zosyn and the third day of Zyvox. PHYSICAL EXAMINATION: Vital signs: Temperature is 98.2 degrees, pulse 90, respirations 19, blood pressure 135/65. In general this is a chronically ill-appearing elderly male. He is in no acute distress. Head, eyes, ears, nose and throat: He can hear my spoken words and see near objects. He does not have any white patches on his tongue. He does not have any drainage from his nose or ears. Neck: No stiffness. Lungs clear to auscultation, with diminished breath sounds on the right side. Cardiovascular: Heart rate is regular. Abdomen is soft and nontender. Neurologic: The patient is alert. He can move his extremities and walk. He is able to talk. LABORATORY DATA: The CBC for today shows a white count of 10,130, hemoglobin 9.9, and platelet count 335,000. Creatinine is 0.9, GFR is greater than 60. ASSESSMENT AND PLAN: 1. The patient had pneumonia. That has cleared. I plan to continue his antibiotics for the empyema and the right hepatic abscess. 2. Comorbidities: The patient is elderly. He has chronic obstructive pulmonary disease, dementia and Parkinson disease. He has a history of smoking cigarettes, drinking alcoholic beverages and abusing drugs. cc: Ti Feldman MD
[2019-01-05] MEDS: LAMICTAL PO SCH (21:37)
[2019-01-05] MEDS: LIPITOR PO SCH (21:37)
[2019-01-06] MEDS: ZOSYN 3.375 GM in NS 50 ML IV SCH ×3 (04:03→15:45)
[2019-01-06] MEDS: LOVENOX SUBQ SCH (05:03)
[2019-01-06] MEDS: PRILOSEC PO SCH (06:16)
[2019-01-06 08:27] LABS: BASO# 0.02 X1000 (0.0-0.2); BASO% 0.2 % (0.0-0.8); EOS# 0.04 X1000 (0.0-0.7); EOS% 0.4 % (0.0-10.0); HEMATOCRIT 30.1 % (42.0-52.0); HEMOGLOBIN 9.1 g/dL (14.0-18.0); LYMPH# 0.87 X1000 (1.2-3.4); LYMPH% 8.9 % (20.5-51.1); MCH 26.4 PG (27-31); MCHC 30.2 g/dL (33-37); MCV 87.2 FL (81-99); MONO# 0.44 X1000 (0.11-0.59); MONO% 4.5 % (1.7-9.3); MPV 9.8 FL (7.4-10.4); NEUT# 8.45 X1000 (1.4-6.5); PLT 352 X1000 (130-400); RBC 3.45 XMIL (4.7-6.1); RDW 20.4 % (11.5-14.5); WBC 9.82 X1000 (4.8-10.8)
[2019-01-06 08:45] LABS: AGAP 11; BUN 18 mg/dL (8-22); CALCIUM 8.7 mg/dL (8.8-10.2); CHLORIDE 106 mmol/L (98-107); COSMO 275; CREATININE 0.8 mg/dL (0.7-1.2); ESTIMATED GFR > 60; GLUCOSE 118 mg/dL (70-104); POTASSIUM 3.8 mmol/L (3.5-5.1); SODIUM 136 mmol/L (136-145); TCO2 19 mmol/L (25-35)
--- NOTE | 2019-01-06 10:46 | Diag Imaging Result Doc PS360 ---
EXAM: CT THORAX W/O CONTRAST INDICATION: SOB TECHNIQUE: This exam was performed using automated exposure control, adjustment of mA or kV according to patient size, and/or use of iterative reconstruction technique. COMPARISON: 01/02/2019 FINDINGS: Emphysematous changes are again noted. The loculated pleural fluid collection on the right with associated atelectasis is unchanged. No new consolidation is identified. The mediastinum is stable. Limited views of the upper abdomen reveals a known right hepatic lobe abscess. It is slightly larger than the previous study measuring 4.3 x 2.8 cm axially (4.2 x 2.3 cm previously). IMPRESSION: 1.Stable chest. 2.Interval slight increase in size of the known right hepatic lobe abscess. Electronically signed by Chris Peck 01/06/2019 10:43 AM
[2019-01-06] MEDS: PRINIVIL PO SCH (10:54)
[2019-01-06] MEDS: ARICEPT PO SCH (10:54)
[2019-01-06] MEDS: THERA M PLUS PO SCH (10:54)
[2019-01-06] MEDS: TOPROL XL PO SCH (10:55)
[2019-01-06] MEDS: NAMENDA PO SCH ×2 (10:55→21:48)
[2019-01-06] MEDS: ZYVOX PO SCH ×2 (10:55→21:48)
[2019-01-06] MEDS: TOPAMAX PO SCH ×2 (10:55→21:48)
[2019-01-06] MEDS ORDERED: NS 250 ML ONE (12:11)
--- NOTE | 2019-01-06 12:16 | DISCHARGE SUMMARY ---
ADMISSION DATE: 12/20/2018 DISCHARGE DATE: 01/06/2019 CONSULTATIONS: 1. Dr. Ryan with Pulmonology. 2. Dr. Joby Willis with General Surgery. 3. Dr. Ti Feldman with Infectious Disease. PRIMARY CARE PROVIDER: Dr. Araujo. PERTINENT PROCEDURES: 1. Head CT. Negative exam. 2. Chest CT with pleural effusions bilaterally, particularly in the right where there is considerable loculation, hepatic abscess versus necrotic tumor, compression atelectasis, and questionable pneumonia. 3. Abdomen and pelvis CT: Large right hepatic lesion, which may be an abscess, severe atherosclerosis, constipation, and possible fecal impaction. 4. Right chest tube placement on 12/24/2018 for a loculated right empyema performed by Dr. Joby Willis. 5. Chest CT significant improvement from prior. Persistent right pleural effusion posteriorly improved essentially, fluid mass on the dome of the liver. 6. Abscess drainage CT, successful and uncomplicated CT guided placement of drains within the hepatic fluid collection in the dominant remaining pleural effusion collection at the right lung base. 7. Chest and abdomen CT: Interval decrease in the size of a complex loculated pleural fluid collection on the right, and resolution of the smaller simple pleural fluid collection on the left. Decrease in the size of the right hepatic lobe. Fluid collection consistent with abscess as a result of interval CT-guided drainage. 8. Head CT: No hemorrhage. No injury. 9. Chest CT: Stable chest. Interval slight increase in the size of the known right hepatic lobe abscess. DISCHARGE DIAGNOSES: 1. Sepsis secondary to right lower lobe pneumonia, empyema, right-sided hepatic abscess, status post right-sided chest tube, right-sided posterior pleural space drain and right-sided hepatic lobe drain; all have been removed since 12/31/2018. The patient is to continue Zosyn and p.o. Zyvox per ID recommendation for worsening leukocytosis. He will be discharged to LTAC in [place]. 2. Acute exacerbation of COPD, resolved. 3. Acute encephalopathy resulting in a fall at nighttime. Numerous head CT's do not detect any hemorrhage or anything acute. It is likely due to a combination of baseline dementia, history of bipolar mood disorder and hospital-acquired delirium. The patient is currently back at his baseline. Continue home medications. 4. Essential hypertension. Continue metoprolol and lisinopril. He did have an EKG that showed intermittent ST-segment, mild elevation and depression. However, troponin's have been unremarkable. Echocardiogram showed normal EF without regional wall motion abnormality. HOSPITAL COURSE: Briefly, Mr. Sherman is a 73-year-old male with a history of hypertension, hyperlipidemia, dementia, COPD, and is a resident at [facility]. He was brought to the ED due to shortness of breath, coughing, and worsening confusion for several days prior to his admission. The patient was evaluated in the ED, he had imaging done that showed a right lower lobe pneumonia with effusion. He was admitted for sepsis and treatment for right lower lobe pneumonia as well as COPD exacerbation. He had a negative head CT that followed up with chest and abdomen CT, that continued to show a right lower lobe pneumonia and empyema as well as a right-sided hepatic abscess. He did receive a chest tube as well as a right-sided posterior pleural space drain, and a right-sided hepatic lobe drain. He has been on IV antibiotics throughout his admission. He has been assessed by Infectious Disease, and will need continue antibiotics given his continued increase in white count so he has been accepted at LTAC. His drains were removed on 12/31/2018. His acute cephalopathy has resolved. He is back to his baseline. They do feel it was a combination of his dementia, bipolar mood disorder, and hospital acquired delirium. Again, he is stable at this time. They have been discussing with social workers long-term care placement for him. However, they felt it would be more appropriate since the duration of his antibiotics that he will go to LTAC, and then they will proceed with long-term care while he is in LTAC. VITAL SIGNS: At time of discharge, temperature is 98.1 degrees, heart rate 92, respirations 18, blood pressure 123/70, and O2 is 96% on room air. DISCHARGE DIET: Healthy heart. DISCHARGE MEDICATIONS: 1. Lipitor 40 mg p.o. at bedtime. 2. Rexulti 4 mg p.o. daily. 3. Donepezil 10 mg tablet p.o. daily. 4. Lisinopril 20 mg tablet p.o. daily. 5. Namenda 10 mg tablet p.o. b.i.d. 6. Toprol-XL 25 mg p.o. daily. 7. Multivitamin 1 tab p.o. daily. 8. Lamictal 100 mg tablet half a tab p.o. at bedtime. 9. Seroquel 12.5 mg p.o. at bedtime p.r.n. 10. Tylenol 650 mg p.o. q.6 hours p.r.n. 11. DuoNeb 3 mL inhaled q.6 hours p.r.n. 12. Prilosec 40 mg p.o. daily. 13. Topamax 25 mg p.o. b.i.d. 14. Zyvox 600 mg p.o. q.12 hours. 15. Zosyn 3.375 g IV q.6 hours. DISPOSITION: Mr. Sherman is being discharged to [facility] in [place] where he will continue with treatment for his IV antibiotics, and then transitioned to rehab. He can return to the ED or call 911 for any worsening of symptoms. Dictated by ZA Post for Walter Romo MD cc: Dr. Gayle Romo MD
[2019-01-06] MEDS: PATIENT'S OWN MED PO SCH (12:18)
[2019-01-06 12:33] LABS: INR 1.09
--- NOTE | 2019-01-06 18:54 | INFECTIOUS DISEASE PROGRESS NO ---
DATE: 01/06/2019 PRESENT ILLNESS: The patient has empyema and hepatic lobe abscess. MEDICATIONS: This is the 16th day of Zosyn and the 4th day of Zyvox. PHYSICAL EXAMINATION: Vital Signs: Temperature is 98.1, pulse 92, respirations 18, blood pressure 123/70. General: This is a chronically ill-appearing elderly male. He is in no acute distress. HEENT: He can hear my spoken words and see near objects. He does not have any white patches on his tongue. He does not have any drainage from his nose or ears. Neck: No meningismus. Lungs: Clear to auscultation. Cardiovascular: Heart rate is regular. Abdomen: Soft and nontender. Neurologic: The patient is alert. He can move his extremities. There is no tremor. LAB AND X-RAY: CT scan shows the same size of the empyema, despite getting treatment and drainage and the liver abscess is increased in size. The CBC shows a white count of 9820, hemoglobin 9.1, and platelet count 352,000. Creatinine is 0.8, GFR is greater than 60. ASSESSMENT AND PLAN: Patient has an empyema and liver abscess. The empyema isn't getting any smaller and the abscess is getting bigger. I have reconsulted surgery and I will continue with the current antibiotics. COMORBIDITIES: The patient is elderly. He has COPD, dementia, Parkinson disease, history of cigarette smoking, drinking alcoholic beverages and abusing drugs. cc: Ti Feldman MD
[2019-01-06] MEDS: LAMICTAL PO SCH (21:48)
[2019-01-06] MEDS: LIPITOR PO SCH (21:48)
--- NOTE | 2019-01-07 00:31 | GENERAL SURGERY PROGRESS NOTE ---
DATE: 01/06/2019 I was asked to see the patient because of recent CT scan showing effusion on the right side that is persistent and a liver abscess. Overall, the effusion on the right side has decreased since admission, and the overall size of the hepatic fluid collection has decreased since it initially was drained. The patient is clinically doing well. No speciation ever from either of the abscesses that were drained previously, and his white count has normalized down to 9 with some left shift, though, of 86 of neutrophils. At this point, given the loculated area kind of in the mid aspect of his lung, we will try to get Radiology to drain it. As far as the liver abscess, we may just observe it for right now since overall it is decreased, but we will continue to monitor while he is in the hospital. cc: Sabino So MD MTDD
[2019-01-07] MEDS: ZOSYN 4.5 GM in NS 100 ML IV SCH ×3 (01:23→16:53)
[2019-01-07] MEDS: LOVENOX SUBQ SCH (06:20)
[2019-01-07] MEDS: PRILOSEC PO SCH (06:20)
[2019-01-07] MEDS: THERA M PLUS PO SCH (09:32)
[2019-01-07] MEDS: TOPAMAX PO SCH ×2 (09:32→20:59)
[2019-01-07] MEDS: NAMENDA PO SCH ×2 (09:32→20:59)
[2019-01-07] MEDS: PRINIVIL PO SCH (09:32)
[2019-01-07] MEDS: ZYVOX PO SCH ×2 (09:32→20:59)
[2019-01-07] MEDS: ARICEPT PO SCH (09:33)
[2019-01-07] MEDS: PATIENT'S OWN MED PO SCH (09:33)
[2019-01-07] MEDS: TOPROL XL PO SCH (09:33)
--- NOTE | 2019-01-07 13:08 | GENERAL SURGERY PROGRESS NOTE ---
DATE: 01/07/2019 SUBJECTIVE: Discussed with Radiology yesterday. We will try to get them to place at a CT-guided drainage release aspiration of the lung fluid. PLAN: Otherwise, continue current treatment. No major surgical intervention planned. cc: Sabino So MD
--- NOTE | 2019-01-07 15:03 | PROGRESS NOTE ---
DATE: 01/07/2019 SUBJECTIVE: This patient is alert, awake and oriented in no acute distress. He is answering most of my questions, but it takes time to get the answers back. He is disoriented to time. He knows he is in a hospital, but he does not remember the name of this hospital. He knows he is in [place]. He knows his name. He was about to be discharged to a long-term facility, but a recent CT scan showed a slight increase in size of the right hepatic lobe abscess and still showed some changes on the lung. There is a loculated pleural effusion collection in the right side with associated atelectasis. Infectious Disease Department and Surgery Department evaluated the patient. It looks like the lung collection is going to be drained probably by Radiology Department. For now, surgery department has recommended to just monitor the liver abscess. PHYSICAL EXAMINATION: Vital Signs: Temperature 98 degrees, pulse 106, respiratory rate 19, blood pressure 165/65, oxygen saturation 98 percent on room air. HEENT: Head normocephalic. No trauma. PERRLA. Neck: Supple. No JVD. No masses. Central trachea. Chest: Decreased breath sounds at the right base. No wheezing. No rales. No crepitus. Cardiovascular: RRR. Abdomen: Soft, nontender, and nondistended. No hepatosplenomegaly. Extremities: No edema. No clubbing. No cyanosis. Neurological: The patient is alert. He is awake. He is following commands. He is answering most of my questions, but the answers are slow. He is oriented x2. He knows he is in [place], and he knows he is in the hospital. No focal weakness. LABORATORY: WBC 9.8, hemoglobin 9.1, hematocrit 30.1, and platelets 352,000. Sodium 136, potassium 3.8, chloride 106, bicarbonate 19, BUN 18, creatinine 0.8, glucose 118, and calcium 8.7. ASSESSMENT AND PLAN: 1. Sepsis due to right lower lobe empyema and right-sided hepatic abscess status post right-sided chest tube. Right-sided posterior pleural space drain. Right-sided hepatic lobe drain status post removal of all the drains since 12/31/2018. 2. Leukocyte count now is normal. Surgery Department on board as well as Infectious Disease Department. He still has some fluid collection of the right lung which probably will be removed by Radiology Department. For the hepatic abscess, surgery department has recommended to monitor. 3. Acute encephalopathy resulting in a fall on 01/03/2019. Negative CT scan. Likely, this patient has baseline dementia and history of bipolar mood disorder, and probably hospital- acquired delirium. He seems to be stable at this moment, but he is still confused, probably this is his baseline. 4. Right lung empyema as per #1. 5. Hepatic abscess as per #1. 6. Likely dementia aware. 7. Essential hypertension. Continue with the same management. Echocardiogram showed a normal ejection fraction without wall motion abnormalities. 8. Acute exacerbation of COPD, treated not in exacerbation at this moment. PLAN: The plan is to discharge this patient to an LTAC. Everything has been set up for him, but since he is still having fluid collection in his lungs and his liver, Surgery Department has recommended to drain the fluid inside his liver. Surgery Department evaluated this patient, and they have recommended to remove the fluid from his lung with Radiology, and monitor the liver collection for now. cc: Walter Romo MD
[2019-01-07] MEDS: LAMICTAL PO SCH (20:58)
[2019-01-07] MEDS: DULCOLAX PR SCH (20:58)
[2019-01-07] MEDS: LIPITOR PO SCH (20:59)
[2019-01-08] MEDS: ZOSYN 4.5 GM in NS 100 ML IV SCH ×2 (00:11→10:58)
[2019-01-08] MEDS: PRILOSEC PO SCH (06:07)
[2019-01-08] MEDS: LOVENOX SUBQ SCH (06:07)
[2019-01-08 06:55] LABS: BASO# 0.02 X1000 (0.0-0.2); BASO% 0.3 % (0.0-0.8); EOS# 0.03 X1000 (0.0-0.7); EOS% 0.4 % (0.0-10.0); HEMATOCRIT 29.8 % (42.0-52.0); HEMOGLOBIN 9.1 g/dL (14.0-18.0); LYMPH# 0.63 X1000 (1.2-3.4); MCH 26.3 PG (27-31); MCHC 30.5 g/dL (33-37); MCV 86.1 FL (81-99); MONO# 0.27 X1000 (0.11-0.59); MONO% 3.8 % (1.7-9.3); MPV 9.1 FL (7.4-10.4); NEUT# 6.08 X1000 (1.4-6.5); NEUT% 86.5 % (42.2-75.2); PLT 332 X1000 (130-400); RBC 3.46 XMIL (4.7-6.1); RDW 20.6 % (11.5-14.5); WBC 7.03 X1000 (4.8-10.8)
[2019-01-08 07:16] LABS: AGAP 11; ALB/GLOB RATIO 0.8; ALBUMIN 2.9 g/dL (3.5-5.0); ALKALINE PHOSPHATASE 75 U/L (32-122); BUN 16 mg/dL (8-22); CHLORIDE 107 mmol/L (98-107); COSMO 280; CREATININE 0.9 mg/dL (0.7-1.2); ESTIMATED GFR > 60; GLUCOSE 128 mg/dL (70-104); GOT 19 U/L (10-34); GPT 21 U/L (10-44); POTASSIUM 3.5 mmol/L (3.5-5.1); SODIUM 139 mmol/L (136-145); TCO2 21 mmol/L (25-35); TOTAL BILIRUBIN 0.31 mg/dL (0.20-1.00); TOTAL PROTEIN 6.4 g/dL (6.3-8.3)
[2019-01-08 07:41] LABS: BANDS 2 % (0-1); LYMPHS 10 % (21-51); SEGS 88 % (42-75)
--- NOTE | 2019-01-08 08:38 | GENERAL SURGERY PROGRESS NOTE ---
DATE: 01/08/2019 The plan is for the patient to have Radiology drain the lung fluid on Wednesday. Until then, will continue current treatment. cc: Sabino So MD
[2019-01-08] MEDS: NAMENDA PO SCH ×2 (10:57→21:25)
[2019-01-08] MEDS: PRINIVIL PO SCH (10:57)
[2019-01-08] MEDS: ZYVOX PO SCH ×2 (10:57→21:25)
[2019-01-08] MEDS: THERA M PLUS PO SCH (10:57)
[2019-01-08] MEDS: TOPROL XL PO SCH (10:57)
[2019-01-08] MEDS: TOPAMAX PO SCH ×2 (10:57→21:25)
[2019-01-08] MEDS: ARICEPT PO SCH (10:58)
[2019-01-08] MEDS: PATIENT'S OWN MED PO SCH (11:03)
--- NOTE | 2019-01-08 14:28 | PROGRESS NOTE ---
DATE: 01/08/2019 SUBJECTIVE: The patient is resting comfortable in bed. OBJECTIVE: Vital Signs: As follows: Temperature 98.5, pulse 102, respiratory rate 19, blood pressure 134/60, O2 saturation is 97%. HEENT: Patient is atraumatic, normocephalic. Cardiovascular: S1, S2. Respiratory: Has evidence of good air entry bilaterally. Abdomen: Soft, nontender. No masses felt. Extremities: No evidence of edema. Central Nervous System: No obvious focal deficit noted. LABS: WBC 7.03, hematocrit is 29.8, with a platelet count of 332,000. Sodium is 139, potassium 3.5, bicarb is 21, BUN is 16, creatinine 0.8. ASSESSMENT AND PLAN: 1. Sepsis secondary to right empyema, as well as right-sided hepatic abscess. Antibiotic management is per the Infectious Disease team. 2. Hypertension. Continue current regimen. 3. COPD. Maintain patient on nebulized bronchodilators as needed. 4. Dementia. Continue Namenda, as well as Aricept. 5. DVT prophylaxis. Lovenox. 6. GI prophylaxis. PPI. cc: Gio Adams MD [facility]
[2019-01-08] MEDS: LIPITOR PO SCH (21:24)
[2019-01-08] MEDS: LAMICTAL PO SCH (21:24)
[2019-01-08] MEDS: DULCOLAX PR SCH (21:25)
[2019-01-09] MEDS: ZOSYN 4.5 GM in NS 100 ML IV SCH ×3 (00:36→17:47)
[2019-01-09] MEDS: PRILOSEC PO SCH (06:02)
[2019-01-09] MEDS: LOVENOX SUBQ SCH (06:02)
[2019-01-09 06:44] LABS: BASO# 0.01 X1000 (0.0-0.2); BASO% 0.2 % (0.0-0.8); EOS# 0.01 X1000 (0.0-0.7); EOS% 0.2 % (0.0-10.0); HEMATOCRIT 30.7 % (42.0-52.0); HEMOGLOBIN 9.3 g/dL (14.0-18.0); LYMPH# 0.55 X1000 (1.2-3.4); LYMPH% 9.4 % (20.5-51.1); MCH 26.8 PG (27-31); MCHC 30.3 g/dL (33-37); MCV 88.5 FL (81-99); MONO# 0.25 X1000 (0.11-0.59); MONO% 4.3 % (1.7-9.3); NEUT# 5.01 X1000 (1.4-6.5); NEUT% 85.9 % (42.2-75.2); PLT 304 X1000 (130-400); RBC 3.47 XMIL (4.7-6.1); RDW 20.9 % (11.5-14.5); WBC 5.83 X1000 (4.8-10.8)
[2019-01-09 07:05] LABS: BANDS 4 % (0-1); LYMPHS 10 % (21-51); MONO 6 % (1-9); SEGS 80 % (42-75)
--- NOTE | 2019-01-09 08:19 | GENERAL SURGERY PROGRESS NOTE ---
DATE: 01/09/2019 SUBJECTIVE: The patient is scheduled to have a drain placed today by Radiology. We will follow up with their results. cc: Sabino So MD
[2019-01-09] MEDS: DUONEB (A & A) INH PRN ×3 (09:55→20:04)
[2019-01-09] MEDS: TOPROL XL PO SCH (10:15)
[2019-01-09] MEDS: ZYVOX PO SCH ×2 (10:15→21:47)
[2019-01-09] MEDS: TOPAMAX PO SCH ×2 (10:15→21:46)
[2019-01-09] MEDS: ARICEPT PO SCH (10:15)
[2019-01-09] MEDS: PRINIVIL PO SCH (10:15)
[2019-01-09] MEDS: NAMENDA PO SCH ×2 (10:15→21:47)
[2019-01-09] MEDS: THERA M PLUS PO SCH (10:15)
--- NOTE | 2019-01-09 10:27 | Diag Imaging Result Doc PS360 ---
CT PLEURAL DRN CATH W/CT GUIDE - 01/09/2019 INDICATION: right sided pleural effusion TECHNIQUE: The risks and benefits of the procedure were discussed with the patient. All questions were answered. Written and verbal informed consent was obtained. Overlying skin was prepped and draped in sterile fashion. Anesthesia was achieved with injection of 10 cc of 1% lidocaine. COMPARISON: 01/06/2019 FINDINGS: A 10.2-And[place]ran pleural drainage catheter was placed in the posterior right pleural effusion. About 60 cc was removed and sent for laboratory analysis. The drain was anchored in place and connected to a drainage bag. IMPRESSION: Successful and uncomplicated CT-guided right pleural drain catheter placement. Electronically signed by Devang Gaona 01/09/2019 10:24 AM
[2019-01-09] MEDS: PATIENT'S OWN MED PO SCH (14:45)
--- NOTE | 2019-01-09 14:48 | INFECTIOUS DISEASE PROGRESS NO ---
DATE: 01/09/2019 PRESENT ILLNESS: The patient has an empyema and hepatic abscess. MEDICATIONS: This is the 19th day of Zosyn and the 7th day of Zyvox. PHYSICAL EXAMINATION: Vital Signs: Temperature is 99.7 degrees, pulse 93, respirations 18, blood pressure 132/60. General: This is a chronically ill-appearing, elderly male. He is in no acute distress. Head, eyes, ears, nose, and throat: He can hear my spoken words and see near objects. He does not have any white patches on his tongue. He is not draining from his nose or ears. Neck: No stiffness. Lungs: Clear to auscultation. Cardiovascular: Heart rate is regular. Thorax: Patient has a chest tube placed on the right side. Abdomen: Soft and nontender. Neurologic: The patient is alert. He can move his extremities. There is no tremor. LABORATORY AND X-RAY: The CBC for today shows a white count of 5830, hemoglobin 9.3, and platelet count 304,000. Creatinine is 1.1. GFR is greater than 60. The patient today had CT-guided right pleural drain catheter placed. ASSESSMENT AND PLAN: The patient has an empyema and liver abscess. I have ordered that a PICC be placed. The patient is going to be going to an LTAC for 3 weeks. I have written for the patient to be seen in my office in 3 weeks. My plan would be to continue Zosyn and Zyvox. COMORBIDITIES: The patient is elderly. He has COPD, dementia, Parkinson disease, history of cigarette smoking, history of alcohol consumption, and history of drug abuse. cc: Ti Feldman MD
[2019-01-09] MEDS ORDERED: NS 250 ML ONE (14:49)
[2019-01-09 14:57] LABS: INR 1.06; PROTIME 14.6 Seconds (11.0-16.0)
--- NOTE | 2019-01-09 17:42 | PROGRESS NOTE ---
DATE: 01/09/2019 SUBJECTIVE: The patient is seated at the side of the bed. Had a CT-guided right catheter inserted into the right pleural space. OBJECTIVE: Vital signs: Temperature 99.7 degrees, pulse 93, respirations 18, blood pressure is 132/60, O2 saturation is 99%. HEENT: Atraumatic, normocephalic. Cardiovascular system: S1, S2. Respiratory system: Has evidence of good air entry bilaterally. The patient does have a right pleural drainage catheter placed in the right pleural space. Abdomen: Soft, nontender. No masses felt. Extremities: No evidence of edema. Central nervous system: No obvious focal deficits noted. LABORATORY DATA: WBC is 5.83, hematocrit 30.7, with a platelet count of 304. INR is 1.06. ASSESSMENT AND PLAN: 1. Sepsis secondary to right empyema status post insertion of right pleural drainage catheter done today which is 01/09/2019. The patient also has a right side hepatic abscess. Antibiotic management as per Infectious Disease team. 2. Hypertension. Continue current antihypertensive regimen. 3. Chronic obstructive pulmonary disease (COPD). Maintain patient on nebulized bronchodilators. 4. Dementia. Continue Namenda as well as Aricept. 5. History of Parkinson's disease. 6. History of tobacco use, as well as alcoholism. 7. History of drug abuse. 8. Deep vein thrombosis (DVT) prophylaxis. Lovenox. 9. Gastrointestinal (GI) prophylaxis. PPI. cc: Gio Adams MD
[2019-01-09] MEDS: DILAUDID IV PRN (17:47)
[2019-01-09] MEDS: LAMICTAL PO SCH (21:46)
[2019-01-09] MEDS: SEROQUEL PO PRN (21:47)
[2019-01-09] MEDS: DULCOLAX PR SCH (21:48)
[2019-01-09] MEDS: LIPITOR PO SCH (22:01)
[2019-01-10] MEDS: ZOSYN 4.5 GM in NS 100 ML IV SCH ×3 (02:48→17:20)
[2019-01-10] MEDS: PRILOSEC PO SCH (06:26)
[2019-01-10] MEDS: LOVENOX SUBQ SCH (06:26)
--- NOTE | 2019-01-10 07:15 | GENERAL SURGERY PROGRESS NOTE ---
DATE: 01/10/2019 SUBJECTIVE: Reviewed notes from the radiologist. They removed about 60 mL of fluid. Culture is still pending. PLAN: Would like to monitor the output for the next day. If there is not a lot output out of the drain, we will plan on removing it. cc: Sabino So MD
--- NOTE | 2019-01-10 07:59 | Diag Imaging Result Doc PS360 ---
EXAM: CHEST-1 VIEW INDICATION: SOB TECHNIQUE: One view COMPARISON: 01/05/2019 FINDINGS: There has been interval placement of a small bore chest tube on the right. The tip projects over the lower right lung zone. Since placement, there has been significant decrease in the right pleural fluid collection. However, moderate pleural fluid on the right persists including loculated fissural fluid. There has been interval placement of a right PICC line. The tip projecting over the lower SVC in expected position. No new consolidations are identified, otherwise. The cardiac silhouette is stable. IMPRESSION: Interval placement of chest tube on the right with improvement of right pleural fluid collection. Electronically signed by Chris Peck 01/10/2019 7:56 AM
[2019-01-10] MEDS: DUONEB (A & A) INH PRN ×3 (09:32→22:20)
[2019-01-10] MEDS: THERA M PLUS PO SCH (10:48)
[2019-01-10] MEDS: PRINIVIL PO SCH (10:48)
[2019-01-10] MEDS: ARICEPT PO SCH (10:48)
[2019-01-10] MEDS: NAMENDA PO SCH ×2 (10:48→20:46)
[2019-01-10] MEDS: ZYVOX PO SCH ×2 (10:48→20:46)
[2019-01-10] MEDS: TOPAMAX PO SCH ×2 (10:48→20:46)
[2019-01-10] MEDS: PATIENT'S OWN MED PO SCH (10:49)
[2019-01-10] MEDS: TOPROL XL PO SCH (10:49)
--- NOTE | 2019-01-10 11:05 | PROGRESS NOTE ---
DATE: 01/10/2019 SUBJECTIVE: This patient is alert, awake. He is oriented to person. He knows he is in the hospital, but he does not remember the name of the hospital. He is not oriented to time. He has a chest tube that is draining fluid. Surgery Department has been following this patient closely. They would like to monitor the output for the next day, and they are planning to remove the tube if the output is not that much. Infectious Disease Department on board. We will continue to monitor. OBJECTIVE: Vital Signs: Temperature 98.2 degrees, pulse 91, respiratory rate 20, blood pressure 139/71, oxygen saturation 97% on room air. HEENT: Head normocephalic, no trauma. PERRLA. Neck: Supple. No JVD. No masses. Central trachea. Chest: Some crepitus at the right base. He does have a chest tube coming out from the right area. No wheezing. Some crepitus. Extremities: No edema. No clubbing. No cyanosis. Neurological: The patient is alert, awake. He is following commands. He is answering to some of my questions, but the answers are slow. He is oriented x1. He is in the hospital. He does not remember which one. He is not oriented to time. No focal weakness. LABORATORY DATA: No lab work done today. ASSESSMENT AND PLAN: 1. Sepsis due to right lower lobe pneumonia and right-sided hepatic abscess, status post right- sided chest tube placement. Surgery Department on board. We will continue to monitor. Hopefully, the tube will be removed in the next 24 hours. So far, negative cultures. 2. Acute encephalopathy resulting in a fall on 01/03/2018. Negative CT scan. Likely this patient has a baseline dementia and a history of bipolar disorder. He seems to be stable at this moment. Probably this is his baseline. 3. Likely dementia. Aware. 4. Right lung empyema. As per #1. 5. Hepatic abscess. As per #1. Continue with antibiotics. 6. Essential hypertension. Continue with same management. Echocardiogram showed a normal ejection fraction without wall motion abnormalities. 7. Acute exacerbation of chronic obstructive pulmonary disease (COPD). Already treated. Not in exacerbation at this moment. cc: Walter Romo MD
[2019-01-10] MEDS: DILAUDID IV PRN (12:19)
--- NOTE | 2019-01-10 13:50 | INFECTIOUS DISEASE PROGRESS NO ---
DATE: 01/10/2019 PRESENT ILLNESS: Mr. Sherman has a right-sided empyema and is status post right chest tube placement. There was also a hepatic abscess. MEDICATIONS: Today is day 8 of treatment with Zyvox 600 mg by mouth every 12 hours and day 20 Zosyn 4.5 g IV every 8 hours. PHYSICAL EXAMINATION: Vital Signs: Temperature is 98.2 degrees, pulse rate 91 , respiratory rate 20, blood pressure 139/71, O2 saturation is 97% on room air. General: This is a chronically ill- appearing elderly gentleman. He is lying in the bed, currently in no acute distress. HEENT: Atraumatic, normocephalic. Oral mucous membranes are pink and moist. Conjunctivae are pale. Neck: Supple. Trachea is midline. Respiratory: Lung sounds are clear on the left and right upper lobes, diminished to the right middle and lower lobes. Cardiovascular: Heart rate is regular. Pedal and radial pulses are +1 bilaterally. Abdomen: Soft, flat, and nontender. Bowel sounds are active. Neurologic: He is oriented to person only. He thinks he is in [place] and does not know what year it is. I have attempted to reorient him. There is a Parkinson's tremor noted to his upper extremities. Integumentary: There is a dressing in place to the right-sided chest tube, which is dry and intact, and has an accordion drain with dark yellow drainage noted. Skin is generally cool, pale, and dry. There is a PICC line in place to the right upper arm. The site is without edema, erythema, or drainage. DIAGNOSTIC STUDIES: The pleural fluid obtained yesterday shows no growth on the preliminary report. Chest x-ray from today shows improvement of right pleural fluid collection. ASSESSMENT AND PLAN: Mr. Sherman is being treated for a right-sided empyema and a liver abscess. When he is ready for discharge, the plan is for him to go to an LTACH for 3 weeks. He will need to continue the Zyvox and Zosyn as ordered for 3 weeks, and then we plan to see him in our office. These plans have been discussed with and recommended by Dr. Feldman. COMORBIDITIES: For Mr. Sherman include he is elderly with dementia, Parkinson's disease, chronic obstructive pulmonary disease, and history of cigarette smoking, alcohol abuse, and drug abuse. Dictated by ZA Iqbal for Ti Feldman MD This chart was documented by, ZA Iqbal and accurately reflects the services performed, treatment plan and medical decisions as attested by the providers signature Ti Feldman MD. cc: Ti Feldman MD [facility]
[2019-01-10] MEDS: TYLENOL PO PRN (19:01)
[2019-01-10] MEDS: LIPITOR PO SCH (20:46)
[2019-01-10] MEDS: LAMICTAL PO SCH (20:46)
[2019-01-10] MEDS: DULCOLAX PR SCH (20:55)
[2019-01-10] MEDS: SEROQUEL PO PRN (20:55)
[2019-01-11] MEDS: ZOSYN 4.5 GM in NS 100 ML IV SCH ×2 (02:18→10:25)
[2019-01-11] MEDS: LOVENOX SUBQ SCH (06:14)
[2019-01-11] MEDS: PRILOSEC PO SCH (06:15)
--- NOTE | 2019-01-11 06:22 | GENERAL SURGERY PROGRESS NOTE ---
DATE: 01/11/2019 Reviewed ins and outs. He has had at least 30 mL recorded coming out of his drain, they only drained 60 mL in the initial placement. Given this, I would like to keep the drain at least another 24 hours and see if the output trends down. Radiographically, it looks like it is improving but given the fact that this is a reaccumulation, would like to make sure it is trending down on its output. cc: Sabino So MD
[2019-01-11 07:03] LABS: BASO# 0.01 X1000 (0.0-0.2); BASO% 0.2 % (0.0-0.8); HEMATOCRIT 29.7 % (42.0-52.0); LYMPH% 12.8 % (20.5-51.1); MCH 26.4 PG (27-31); MCHC 30.3 g/dL (33-37); MCV 87.1 FL (81-99); MONO# 0.24 X1000 (0.11-0.59); MONO% 4.4 % (1.7-9.3); NEUT# 4.54 X1000 (1.4-6.5); NEUT% 82.6 % (42.2-75.2); PLT 227 X1000 (130-400); RBC 3.41 XMIL (4.7-6.1); WBC 5.49 X1000 (4.8-10.8)
--- NOTE | 2019-01-11 07:14 | Diag Imaging Result Doc PS360 ---
EXAM: CHEST-1 VIEW 01/11/2019 HISTORY: SOB TECHNIQUE: AP portable at 0529 COMMENT: There is a small caliber pleural catheter on the right. There is a PICC line on the right with its tip in the superior vena cava. There are loculated pleural fluid collections on the right. There is COPD. Overall the appearance of the chest has not changed appreciably since 01/10/2019. IMPRESSION: Stable chest. Electronically signed by Terrell Fuentes 01/11/2019 7:11 AM
[2019-01-11 07:27] LABS: AGAP 11; BUN 17 mg/dL (8-22); CHLORIDE 103 mmol/L (98-107); COSMO 278; CREATININE 0.9 mg/dL (0.7-1.2); ESTIMATED GFR > 60; GLUCOSE 119 mg/dL (70-104); POTASSIUM 3.5 mmol/L (3.5-5.1); SODIUM 138 mmol/L (136-145); TCO2 24 mmol/L (25-35)
[2019-01-11] MEDS: NAMENDA PO SCH ×2 (09:12→20:51)
[2019-01-11] MEDS: TOPAMAX PO SCH ×2 (09:12→20:51)
[2019-01-11] MEDS: PRINIVIL PO SCH (09:12)
[2019-01-11] MEDS: TOPROL XL PO SCH (09:12)
[2019-01-11] MEDS: ZYVOX PO SCH (09:12)
[2019-01-11] MEDS: ARICEPT PO SCH (09:12)
[2019-01-11] MEDS: THERA M PLUS PO SCH (09:12)
[2019-01-11] MEDS: PATIENT'S OWN MED PO SCH (09:13)
--- NOTE | 2019-01-11 11:14 | PROGRESS NOTE ---
DATE: 01/11/2019 SUBJECTIVE: This patient is alert, awake. He is oriented to person, he knows he is in [facility]. He is not oriented to time. Chest tube still draining some fluid. Surgery Department saw the patient in the morning and the plan is to keep the drain at least another 24 hours and see if the output drain is down. Radiographically it looks like it is improving. Infectious Disease Department on board as well. OBJECTIVE: Vital Signs: Temperature 98.5 degrees, pulse 105, respiratory rate 20, blood pressure 178/75, oxygen saturation 97% on room air. HEENT: Head normocephalic. No trauma. PERRLA. Neck: Supple. No JVD. No masses. Central trachea. Chest: Some crepitus at the right base. He does have a chest tube coming out from the right area. No wheezing, some crepitus. Extremities: No edema. No clubbing. No cyanosis. Neurological: Alert and oriented x2. He is answering some of my questions. He is moving all 4 extremities spontaneously. He is not oriented to time and he seems to be confused on and off. LABORATORY: WBC 5.4, hemoglobin 9, hematocrit 29.7, platelets 227,000. Sodium 138, potassium 3.5, chloride 103, bicarbonate 24, BUN 17, creatinine 0.9, glucose 119, calcium 9. ASSESSMENT AND PLAN: 1. Sepsis due to right lower lobe pneumonia and right-sided hepatic abscess, status post right- sided chest tube placement. Surgery Department following this patient. They want to keep the tube for the next 24 hours and see if the amount of fluid is trending down. Hopefully after the tube is removed, we are going to be able to discharge this patient to an LTAC if possible. 2. Acute encephalopathy. I think this is his baseline. He has a fall on , negative CT scan. He has a baseline dementia and history of bipolar disorder. He seems to be stable at this moment. Probably this is his baseline like I mentioned before. 3. Likely dementia, aware. 4. Right lung empyema. As per #1. 5. Hepatic abscess. Continue with antibiotics. Infectious Disease Department has been following this patient closely. The plan is to continue with Zyvox and Zosyn for 3 weeks and the plan is to monitor the patient as an outpatient by Infectious Disease Department. 6. Hypertension. Continue with the same management. Echocardiogram showed normal ejection fraction without wall motion abnormalities. 7. Acute exacerbation of COPD, resolved, treated already. cc: Walter Romo MD [facility]
[2019-01-11] MEDS: DILAUDID IV PRN (12:34)
--- NOTE | 2019-01-11 15:54 | INFECTIOUS DISEASE PROGRESS NO ---
DATE: 01/11/2019 PRESENT ILLNESS: Mr. Sherman is being treated for right-sided empyema and is status post insertion of a small bore chest tube on the right. There was also a hepatic abscess which has grown in size slightly based on the last CT scan. Also, last evening he had a temperature max of 102.6. MEDICATIONS: He has been receiving Zosyn 4.5 g IV every 8 hours and Zyvox 600 mg by mouth every 12 hours. PHYSICAL EXAMINATION: Vital Signs: Temperature is 98.1 degrees, pulse rate 93 , respiratory rate 16, blood pressure 123/59, O2 saturation 99% on room air. General: This is a chronically ill- appearing, elderly gentleman. He is lying in the bed currently in no acute distress. HEENT: Atraumatic, normocephalic. Oral mucous membranes are pink and moist. Conjunctivae are pale. Neck: Supple. Trachea is midline. Cardiovascular: Heart rate is regular. Pedal and radial pulses +1 bilaterally. Respiratory: Lung sounds are diminished on the right with rales noted on the left side. Integumentary: There is a chest tube in place on the right with an accordion drain, and dark yellow drainage noted in the bag. The dressing to his chest tube site is dry and intact. There is also a PICC line to the right upper arm. The site is without edema, erythema or drainage. Abdomen: Soft, flat, nontender. Bowel sounds are active. Neurologic : He is oriented to person only. He does have a Parkinson tremor to the upper extremities. LABORATORY AND X-RAY: Today his white count is 5.49, hemoglobin 9, platelet count 227,000. Creatinine is 0.9. Estimated GFR is greater than 60. Blood cultures were repeated last night when he had a fever and are preliminary. So far, the pleural fluid on the preliminary report has shown no growth. Chest x-ray today shows a stable chest with loculated pleural fluid collections on the right and COPD. ASSESSMENT AND PLAN: Mr. Sherman is being treated for right-sided empyema and hepatic abscess. He has also had a fever of 102.6 last evening. Blood cultures have been repeated. We will also check a culture of his urine which looks like it has not been checked on this admission. Also, we will discontinue Zosyn and Zyvox at this time and start him on meropenem 1 gram intravenous every 8 hours, as well as coverage for a possible fungal infection using micafungin 100 mg intravenous daily. We will also go ahead and do a repeat CT scan for evaluation of his lungs and liver. These plans have been discussed with and recommended by Dr. Feldman. COMORBIDITIES: Comorbidities for Mr. Sherman include that he is elderly with dementia, Parkinson's disease, COPD, history of cigarette smoking, alcohol abuse and drug abuse. Dictated by ZA Iqbal for Ti Feldman MD This chart was documented by, ZA Iqbal and accurately reflects the services performed, treatment plan and medical decisions as attested by the providers signature Ti Feldman MD. cc: Ti Feldman MD [facility]
--- NOTE | 2019-01-11 16:44 | Diag Imaging Result Doc PS360 ---
EXAM: CT THORAX/ABDOMEN W/WO CON INDICATION: hepatic abscess, pleural effusions TECHNIQUE: This exam was performed using automated exposure control, adjustment of mA or kV according to patient size, and/or use of iterative reconstruction technique. COMPARISON: CT chest dated 01/06/[address] chest abdomen and pelvis dated 01/02/2019 FINDINGS: CHEST: There has been interval placement of a pleural drainage catheter in the loculated pleural fluid collection posteriorly. The collection is decreased in size during the interval as a result. The loculated fluid in the major fissure on the right has decreased slightly in size. There is still significant atelectasis at the right lung base but it has improved. There is mild atelectasis at the left lung base. No new consolidations are appreciated. Small shotty mediastinal lymph nodes are stable. ABDOMEN: Since the previous chest CT dated 01/06/2019, the loculated right hepatic lobe fluid collection with surrounding edema that is suspicious for abscess has increased in size. It measures 4.9 x 3.4 cm axially (4.3 x 2.8 cm previously). The liver is stable, otherwise. The spleen and pancreas are essentially unremarkable. A low dense left adrenal nodule is stable, very likely an adenoma. There are stable bilateral renal cysts. The kidneys are unremarkable, otherwise. The visualized segments of the GI tract are grossly unremarkable. There is extensive aortoiliac atherosclerotic calcification. IMPRESSION: 1.Decrease in size of the loculated pleural fluid collection on the right as compared to the recent prior study as result of pigtail drainage catheter placement. 2.Increase in size of the intrahepatic loculated fluid suspicious for abscess. Electronically signed by Chris Peck 01/11/2019 4:41 PM
[2019-01-11] MEDS: MYCAMINE 100 MG in NS 100 ML IV SCH (18:10)
[2019-01-11] MEDS: MERREM 1 GM in NS 50 ML IV SCH (18:10)
[2019-01-11] MEDS: LIPITOR PO SCH (20:51)
[2019-01-11] MEDS: LAMICTAL PO SCH (20:51)
[2019-01-11] MEDS: DULCOLAX PR SCH (20:52)
[2019-01-12] MEDS: MERREM 1 GM in NS 50 ML IV SCH ×3 (01:07→18:25)
[2019-01-12] MEDS: LOVENOX SUBQ SCH (06:25)
[2019-01-12] MEDS: PRILOSEC PO SCH (06:25)
--- NOTE | 2019-01-12 06:25 | GENERAL SURGERY PROGRESS NOTE ---
DATE: 01/12/2019 Reviewed output with nurse overnight from the pleural drain, essentially very little drainage. Removed it at the bedside without complication. Patient tolerated well. Will be available as needed. cc: Sabino So MD
--- NOTE | 2019-01-12 07:30 | Diag Imaging Result Doc PS360 ---
EXAM: CHEST-1 VIEW HISTORY: SOB TECHNIQUE: Portable chest single view COMPARISON: 01/11/2019 FINDINGS: No change in the right-sided PICC line. The right catheter overlying the lower hemithorax has been removed. No pneumothorax. The tiny pleural effusions although fluid in the right fissure remains. No cardiomegaly. Mild increased interstitial markings persist. IMPRESSION: No significant interval change. Electronically signed by Alberto Rm 01/12/2019 7:28 AM
[2019-01-12] MEDS: TOPAMAX PO SCH ×2 (09:28→21:15)
[2019-01-12] MEDS: PRINIVIL PO SCH (09:28)
[2019-01-12] MEDS: NAMENDA PO SCH ×2 (09:28→21:15)
[2019-01-12] MEDS: ARICEPT PO SCH (09:28)
[2019-01-12] MEDS: PATIENT'S OWN MED PO SCH (09:29)
[2019-01-12] MEDS: THERA M PLUS PO SCH (09:29)
[2019-01-12] MEDS: TOPROL XL PO SCH (09:30)
--- NOTE | 2019-01-12 11:55 | PROGRESS NOTE ---
DATE: 01/12/2019 SUBJECTIVE: The patient is alert and awake, oriented to person. He knows he is in the hospital. He is not oriented to time. He is following commands. Chest tube has been removed. X-ray looks better, but we did a CT scan yesterday that showed worsening of the liver abscess, it is bigger compared with the previous CT scan. Surgery Department will be notified. OBJECTIVE: Vital Signs: Temperature 98.4 degrees, pulse 88, respiratory rate 14, blood pressure 147/72, oxygen saturation 95% on room air. HEENT: Head normocephalic. No trauma. PERRLA. Neck: Supple. No JVD. No masses. Central trachea. Chest: Crepitus at the right base. He has a dressing at the level of the right side that looks clean. No wheezing. Abdomen: Soft, nontender, nondistended. Mild discomfort at the level of the epigastric area. Extremities: No edema. No clubbing. No cyanosis. Neurological: The patient is alert and oriented x2. He is answering my questions. He is moving all 4 extremities spontaneously. He is oriented to time, and his answers are slow. LABORATORY DATA: WBC 5.4, hemoglobin 9, hematocrit 29.7, platelets 227,000. Sodium 138, potassium 3.5, chloride 103, bicarbonate 24, BUN 17, creatinine 0.9, glucose 119, calcium 9. ASSESSMENT AND PLAN: 1. Sepsis due to right lower lobe pneumonia, abscess, and right-sided hepatic abscess, status post right-sided chest tube placement. The chest tube has been removed today by Surgery Department. The x-ray looks better. CT scan done yesterday showed an increase in size of the hepatic abscess. Infectious Disease Department has been notified, and also Surgery Department will be notified. 2. Right lung empyema as per #1. 3. Hepatic abscess as per #1. 4. Acute encephalopathy. Probably, this is his baseline. I do believe he has a baseline dementia. No family members at the bedside, and also apparently a history of bipolar disorder. 5. Hypertension, stable. Continue with same management. 6. Acute exacerbation of chronic obstructive pulmonary disease, resolved. He has been already treated. cc: Walter Romo MD
--- NOTE | 2019-01-12 17:55 | INFECTIOUS DISEASE PROGRESS NO ---
DATE: 01/12/2019 PRESENT ILLNESS: The patient had a right-sided empyema which has almost completely cleared. Unfortunately, the patient's presumed hepatic abscess is getting bigger in size. MEDICATIONS: The patient was switched from Zosyn and Zyvox to meropenem and micafungin yesterday. OBJECTIVE: Vital signs: Temperature is 98.4 degrees, pulse 84, respirations 14, blood pressure 150/90. Generally, this is a chronically ill-appearing elderly male. He is in no acute distress. Head, eyes, ears, nose, throat: He can hear my spoken words and see near objects. He does not have any white patches on his tongue. Neck: No stiffness. Lungs clear to auscultation. Cardiovascular: Heart rate is regular. Abdomen soft and not tender. Extremities: The patient has a PICC in his right arm. The site is not swollen or draining. Neurologic: The patient is awake. He can move his extremities. There is no tremor. DIAGNOSTIC DATA: Chest x-ray shows a tiny right pleural effusion and mild increase in the interstitial markings in the right lung. CT scan of the chest shows decreased pleural effusion but an increase in the patient's liver abscess. ASSESSMENT AND PLAN: 1. I am going to continue on with meropenem and micafungin, and tomorrow the patient is slated to undergo placing a drain in the in the liver abscess again. 2. Comorbidities: He is elderly; he has dementia and Parkinson disease; he has chronic obstructive pulmonary disease; he has a history of smoking cigarettes, drinking alcoholic beverages and using illicit drugs. cc: Ti Feldman MD
[2019-01-12] MEDS: MYCAMINE 100 MG in NS 100 ML IV SCH (19:10)
[2019-01-12] MEDS: LAMICTAL PO SCH (21:15)
[2019-01-12] MEDS: LIPITOR PO SCH (21:15)
[2019-01-13] MEDS: MERREM 1 GM in NS 50 ML IV SCH ×3 (02:20→18:06)
[2019-01-13] MEDS: DULCOLAX PR SCH (04:02)
[2019-01-13] MEDS: PRILOSEC PO SCH ×2 (06:28→06:29)
[2019-01-13] MEDS: LOVENOX SUBQ SCH ×2 (06:28→06:30)
[2019-01-13 06:44] LABS: BASO# 0.01 X1000 (0.0-0.2); BASO% 0.3 % (0.0-0.8); EOS# 0.02 X1000 (0.0-0.7); EOS% 0.7 % (0.0-10.0); HEMATOCRIT 29.8 % (42.0-52.0); HEMOGLOBIN 9.2 g/dL (14.0-18.0); LYMPH# 0.87 X1000 (1.2-3.4); LYMPH% 29.9 % (20.5-51.1); MCH 26.3 PG (27-31); MCHC 30.9 g/dL (33-37); MCV 85.1 FL (81-99); MONO% 6.9 % (1.7-9.3); MPV 9.2 FL (7.4-10.4); NEUT# 1.81 X1000 (1.4-6.5); NEUT% 62.2 % (42.2-75.2); PLT 182 X1000 (130-400); RDW 20.3 % (11.5-14.5); WBC 2.91 X1000 (4.8-10.8)
--- NOTE | 2019-01-13 07:02 | Diag Imaging Result Doc PS360 ---
EXAM: CHEST-1 VIEW HISTORY: SOB TECHNIQUE: Chest single view COMPARISON: 01/12/2019 FINDINGS: Interval decrease in the right pleural fluid. Heart is borderline mildly prominent. Mild pulmonary edema. There are infiltrates in the lower right lung which are slightly more prominent. No change in the right-sided PICC line. IMPRESSION: Mixed areas of improvement and worsening. Electronically signed by Alberto Rm 01/13/2019 7:00 AM
[2019-01-13 07:04] LABS: AGAP 12; ALB/GLOB RATIO 0.8; ALBUMIN 2.9 g/dL (3.5-5.0); ALKALINE PHOSPHATASE 73 U/L (32-122); BUN 15 mg/dL (8-22); CALCIUM 8.8 mg/dL (8.8-10.2); CHLORIDE 107 mmol/L (98-107); COSMO 281; CREATININE 0.5 mg/dL (0.7-1.2); ESTIMATED GFR > 60; GLUCOSE 107 mg/dL (70-104); GOT 30 U/L (10-34); GPT 27 U/L (10-44); POTASSIUM 3.4 mmol/L (3.5-5.1); SODIUM 140 mmol/L (136-145); TCO2 21 mmol/L (25-35); TOTAL BILIRUBIN 0.25 mg/dL (0.20-1.00); TOTAL PROTEIN 6.5 g/dL (6.3-8.3)
[2019-01-13] MEDS ORDERED: NS 50 ML ONE (07:14)
[2019-01-13] MEDS ORDERED: KLOR-CON PO ONE (08:14)
--- NOTE | 2019-01-13 10:45 | GENERAL SURGERY PROGRESS NOTE ---
DATE: 01/13/2019 The patient's liver abscess it seems has gotten a little bit bigger. I have discussed with Radiology. We will try to get it drained today by CT guided. cc: Sabino So MD
[2019-01-13] MEDS: THERA M PLUS PO SCH (11:08)
[2019-01-13] MEDS: TOPROL XL PO SCH (11:08)
[2019-01-13] MEDS: PRINIVIL PO SCH (11:09)
[2019-01-13] MEDS: NAMENDA PO SCH ×2 (11:09→20:40)
[2019-01-13] MEDS: ARICEPT PO SCH (11:09)
[2019-01-13] MEDS: PATIENT'S OWN MED PO SCH (11:09)
[2019-01-13] MEDS: TOPAMAX PO SCH ×2 (11:09→20:39)
--- NOTE | 2019-01-13 15:04 | Diag Imaging Result Doc PS360 ---
CT GUIDE ABD DRAINAGE W/CATH - 01/13/2019 INDICATION: drain liver fluid TECHNIQUE: The risks and benefits of the procedure were discussed with the patient. All questions were answered. Written and verbal informed consent was obtained. Overlying skin was prepped and draped in sterile fashion. Anesthesia was achieved with injection of 10 cc of 1% lidocaine. COMPARISON: 01/11/2019 FINDINGS: The small fluid collection in the lateral right lobe of the liver was aspirated without difficulty. About 18 cc was removed. This fluid was somewhat cloudy. IMPRESSION: Successful aspiration of the very small hepatic fluid collection. Electronically signed by Devang Gaona 01/13/2019 3:02 PM
--- NOTE | 2019-01-13 15:28 | PROGRESS NOTE ---
DATE: 01/13/2019 SUBJECTIVE: The patient is oriented to person and place, he is not oriented to time. He is following commands. He is getting CT guided drainage of the hepatic abscess. Continue with antibiotics. Continue with the same management. OBJECTIVE: Vital Signs: Temperature 98.2 degrees, pulse 84, respiratory rate 22, blood pressure 145/86, and oxygen saturation 98 on room air. HEENT: Head normocephalic. No trauma. PERRLA. Neck: Supple. No JVD. No masses. Central trachea. Chest: Crepitus capitis at the right base. Dressing looks clean. No wheezing. Abdomen: Soft, nontender, and nondistended. Mild discomfort at the level of the epigastric area. Extremities: No edema. No clubbing. No cyanosis. Neurological: The patient is alert and oriented x2. He is answering some of my questions. He is moving all 4 extremities. He is not oriented to time. His answers are slow still. LABORATORY: WBC 2.9, hemoglobin 9.2, hematocrit 29.8, and platelets 192,000. Sodium 140, potassium 3.4, chloride 107, bicarbonate 21, BUN 15, creatinine 0.5, glucose 107, calcium 8.8, and albumin 2.9. ASSESSMENT AND PLAN: 1. Sepsis due to right lower lobe pneumonia. Abscess and right-sided hepatic abscess, status post right-sided chest tube placement. Today, this patient is getting also a CT-guided drainage of the hepatic abscess. Surgery and Infectious Disease Department on board. 2. Right lung empyema as per #1. 3. Hepatic abscess as per #1. 4. Acute encephalopathy, probably this is his baseline. I do believe he has a baseline dementia. No family members at the bedside. It has been placed on his past medical history that he has bipolar disorder as well. 5. Hypertension stable. Continue with same management. 6. COPD exacerbation, resolved. He has been already treated. cc: Walter Romo MD
--- NOTE | 2019-01-13 17:23 | INFECTIOUS DISEASE PROGRESS NO ---
DATE: 01/13/2019 PRESENT ILLNESS: Mr. Sherman has been treated for a right-sided empyema as well as a hepatic abscess, which seems to be getting larger. MEDICATIONS: He is receiving meropenem 1 g IV every 8 hours and micafungin 100 mg IV every 24 hours the last 2 days. PHYSICAL EXAMINATION: Vital Signs: Temperature is 98.2 degrees, pulse rate 84, respiratory rate 22, blood pressure 145/86, O2 saturation is 98% on room air. General: This is a chronically ill- appearing, elderly gentleman. He is lying in bed, currently in no acute distress. HEENT: Atraumatic, normocephalic. Oral mucous membranes are pink and moist. Conjunctivae are pale. Neck: Supple. Trachea is midline. Respiratory: Lung sounds are diminished on the right, clear on the left. Cardiovascular: Heart rate is regular. Integumentary: There is a dressing to the right previous chest tube site, which has been removed. It is clean dry and intact. He also has a PICC line to the right upper arm. That site is without edema, erythema, or drainage. Abdomen: Soft, flat, nontender. Bowel sounds are active. Neurologic: He is oriented to person only, able to move all extremities with generalized weakness noted in the bed. LABORATORY AND X-RAY: Today his white count is 2.91, hemoglobin 9.2, platelet count 182,000, absolute neutrophil count 1.81. Creatinine is 0.5, estimated GFR is greater than 60. Total bilirubin is 0.25, AST 30, ALT 27, alkaline phosphatase 73. Urine cultures show no growth. Blood cultures have also shown no growth after 48 hours. Chest x-ray this morning shows mixed areas of improvement and worsening with infiltrates in the lower right lung, which are slightly more prominent. ASSESSMENT AND PLAN: Mr. Sherman has been treated for a right-sided empyema, which seems to be clearing. There is also a pneumonia bilaterally. The plan today is for him to have a CT-guided abdominal drain insertion to the hepatic abscess. There is a leukopenia noted today; however, his absolute neutrophil count is within normal limits. We will recheck his CBC on Wednesday. For now we will continue the micafungin and meropenem as ordered. These plans have been discussed with and recommended by Dr. Feldman. COMORBIDITIES: Mr. Vener is elderly with dementia and Parkinson's disease, COPD, history of tobacco abuse, alcohol abuse and illicit drug use. Dictated by ZA Iqbal for Ti Feldman MD This chart was documented by, ZA Iqbal and accurately reflects the services performed, treatment plan and medical decisions as attested by the providers signature Ti Feldman MD. cc: Ti Feldman MD [facility]
[2019-01-13] MEDS: MYCAMINE 100 MG in NS 100 ML IV SCH (18:06)
[2019-01-13] MEDS: LIPITOR PO SCH (20:40)
[2019-01-13] MEDS: LAMICTAL PO SCH (20:40)
[2019-01-14] MEDS: MERREM 1 GM in NS 50 ML IV SCH ×3 (01:57→18:41)
[2019-01-14] MEDS: LOVENOX SUBQ SCH (05:58)
[2019-01-14] MEDS: PRILOSEC PO SCH (05:59)
[2019-01-14 06:55] LABS: BASO# 0.01 X1000 (0.0-0.2); BASO% 0.3 % (0.0-0.8); EOS# 0.04 X1000 (0.0-0.7); HEMATOCRIT 35.5 % (42.0-52.0); LYMPH# 0.72 X1000 (1.2-3.4); LYMPH% 18.8 % (20.5-51.1); MONO# 0.32 X1000 (0.11-0.59); MONO% 8.4 % (1.7-9.3); MPV 10.6 FL (7.4-10.4); NEUT# 2.73 X1000 (1.4-6.5); NEUT% 71.5 % (42.2-75.2); PLT 171 X1000 (130-400); RBC 4.08 XMIL (4.7-6.1); RDW 20.9 % (11.5-14.5); WBC 3.82 X1000 (4.8-10.8)
[2019-01-14 07:05] LABS: AGAP 12; BUN 16 mg/dL (8-22); CALCIUM 9.5 mg/dL (8.8-10.2); CHLORIDE 106 mmol/L (98-107); COSMO 273; CREATININE 0.7 mg/dL (0.7-1.2); ESTIMATED GFR > 60; GLUCOSE 128 mg/dL (70-104); POTASSIUM 3.8 mmol/L (3.5-5.1); SODIUM 135 mmol/L (136-145); TCO2 17 mmol/L (25-35)
--- NOTE | 2019-01-14 07:24 | Diag Imaging Result Doc PS360 ---
EXAM: CHEST-1 VIEW 01/14/2019 HISTORY: SOB TECHNIQUE: AP portable at 0542 COMMENT: There is a PICC line on the right with its tip in the superior vena cava. There is pleural thickening on the right with pleural-based linear opacities suggesting fibrosis. The loculated pleural fluid collection which was demonstrated on the previous studies has become less conspicuous. The left lung is clearer than on 01/12/2019 IMPRESSION: Improving loculated pleural effusion on the right. Pleural thickening and pleural-based fibrosis on the right. Electronically signed by Terrell Fuentes 01/14/2019 7:22 AM
[2019-01-14] MEDS: NAMENDA PO SCH ×2 (10:23→20:10)
[2019-01-14] MEDS: PRINIVIL PO SCH (10:23)
[2019-01-14] MEDS: ARICEPT PO SCH (10:23)
[2019-01-14] MEDS: THERA M PLUS PO SCH (10:23)
[2019-01-14] MEDS: TOPROL XL PO SCH (10:24)
[2019-01-14] MEDS: TOPAMAX PO SCH ×2 (10:24→20:10)
[2019-01-14] MEDS: PATIENT'S OWN MED PO SCH (10:24)
--- NOTE | 2019-01-14 12:43 | Diag Imaging Result Doc PS360 ---
EXAM: CT ABDOMEN W/CONTRAST 01/14/2019 HISTORY: Liver abscess TECHNIQUE: This exam was performed using automated exposure control, adjustment of mA or kV according to patient size, and/or use of iterative reconstruction technique. COMMENT: The current examination is compared with the previous study of 01/11/2019. There is a pleural fluid collection on the right which may be partially loculated. The drainage catheter which was previously present is no longer visible and the fluid collection may have increased slightly since the previous study. Some compressive atelectasis is present in the right lower lobe. There has been some improvement in this regard since the previous study. There is a thick-walled lucency present in the posterior lateral right hepatic lobe which has diminished in size now measuring a maximum of 6.7 cm compared to 7.1 cm previously. This is presumably an abscess as described in the history. The spleen is not enlarged. The left adrenal gland contains a fairly low density nodule which was also present previously and which likely represents an adenoma. The CT density on the arterial phase is less than 8 Hounsfield units. The kidneys and pancreas are stable in appearance. There is no evidence of bowel obstruction. There is calcification in the aorta which is slightly distended below the level of the renal arteries measuring up to 2.5 cm in AP dimension. There is no evidence of free fluid or significant adenopathy. IMPRESSION: Slightly increased right pleural fluid collection, slightly decreased hepatic abscess. Electronically signed by Terrell Fuentes 01/14/2019 12:41 PM
--- NOTE | 2019-01-14 13:04 | PROGRESS NOTE ---
DATE: 01/14/2019 SUBJECTIVE: No changes compared with yesterday. Case has been discussed with Surgery Department, we will get a new CT scan of the chest and abdomen tomorrow to corroborate that the empyema and the liver abscesses are getting better. For now we will continue with the same management and antibiotics. OBJECTIVE: Vital Signs: Temperature 97.9 degrees, pulse 94, respiratory rate 16, blood pressure 152/77, oxygen saturation 100% on room air. HEENT: Head normocephalic. No trauma. PERRLA. Neck: Supple. No JVD. No masses. Central trachea. Chest: Crepitus at the right base. The dressing looks clean. No wheezing. Abdomen: Soft, nontender, nondistended. No hepatosplenomegaly. Extremities: No edema. No clubbing. No cyanosis. Neurological: The patient is alert. He is oriented x2. He is following commands. He is not agitated. LABORATORY: WBC 3.8, hemoglobin 11, hematocrit 35.5, platelets 171,000, sodium 135, potassium 3.8, chloride 106, bicarbonate 17, BUN 16, creatinine 0.7, glucose 128, calcium 9.5. ASSESSMENT AND PLAN: 1. Sepsis due to right-sided empyema and hepatic abscess, status post right-sided chest tube placement and CT-guided drainage of the hepatic abscess, surgery department and infectious disease department following this patient. The plan is to get a CT scan tomorrow to evaluate the empyema and the abscess, hopefully this is getting better. 2. Right lung empyema, as per #1. 3. Hepatic abscess, as per #1. 4. Acute encephalopathy, likely this is his baseline, he has a baseline dementia. No family members at the bedside. 5. Possible bipolar disorder, aware. 6. Hypertension, stable. 7. COPD exacerbation, resolved, already treated. cc: Walter Romo MD
[2019-01-14] MEDS: DUONEB (A & A) INH PRN (15:50)
[2019-01-14] MEDS: MYCAMINE 100 MG in NS 100 ML IV SCH (18:41)
[2019-01-14] MEDS: LAMICTAL PO SCH (20:10)
[2019-01-14] MEDS: LIPITOR PO SCH (20:10)
[2019-01-15] MEDS: MERREM 1 GM in NS 50 ML IV SCH ×3 (03:27→18:58)
[2019-01-15] MEDS: LOVENOX SUBQ SCH (06:06)
[2019-01-15] MEDS: PRILOSEC PO SCH (06:06)
--- NOTE | 2019-01-15 07:17 | Diag Imaging Result Doc PS360 ---
EXAM: CHEST-1 VIEW 01/15/2019 HISTORY: SOB TECHNIQUE: AP portable at 0549 COMMENT: There is pleural scarring on the right. There is some residual loculated fluid and/or pleural thickening on the right but this has gradually improved over the last several days. The right middle lobe is opacified obscuring the right heart border. The left lung is clear. IMPRESSION: Residual pleural changes on the right. Atelectasis versus pneumonia right middle lobe. COPD. Electronically signed by Terrell Fuentes 01/15/2019 7:15 AM
[2019-01-15] MEDS: DUONEB (A & A) INH PRN ×2 (08:57→15:46)
--- NOTE | 2019-01-15 09:32 | GENERAL SURGERY PROGRESS NOTE ---
DATE: 01/15/2019 SUBJECTIVE: No events documented overnight. He says he did not feel as comfortable breathing as well anymore, but he is not on any higher O2 requirements. He did have aspiration of liver cysts on 01/13. CT scan yesterday showed improvement in liver collection. Slight increase in the pleural collection. OBJECTIVE: Vitals: Currently he is afebrile, pulse 87, blood pressure 159/71, oxygen saturation 96% on room air. General: He is alert, in no acute distress. Abdomen: Soft. There is no subcutaneous air on his chest examination. Integument: Warm, dry. LABORATORY: White count 3, hematocrit 35, those were labs from yesterday. ASSESSMENT AND PLAN: A 73-year-old gentleman with liver and lung abscess. We will continue medical measures. No plans for surgical intervention at this juncture. cc: Fatimah Garay MD
[2019-01-15] MEDS: PRINIVIL PO SCH (09:54)
[2019-01-15] MEDS: PATIENT'S OWN MED PO SCH (09:54)
[2019-01-15] MEDS: TOPROL XL PO SCH (09:54)
[2019-01-15] MEDS: TOPAMAX PO SCH ×2 (09:54→21:28)
[2019-01-15] MEDS: ARICEPT PO SCH (09:54)
[2019-01-15] MEDS: NAMENDA PO SCH ×2 (09:54→21:28)
[2019-01-15] MEDS: THERA M PLUS PO SCH (09:54)
--- NOTE | 2019-01-15 13:59 | PROGRESS NOTE ---
DATE: 01/15/2019 SUBJECTIVE: No acute events overnight. No changes compared with yesterday. CT scan of the abdomen showed a slight increase in the right pleural fluid collection and is slightly decreased in hepatic abscess. He recently had a CT-guided liver abscess drainage. That showed a successful aspiration of the very small hepatic fluid collection. OBJECTIVE: Vital Signs: Temperature 98.2 degrees, pulse 95, respiratory rate 18, blood pressure 139/70, oxygen saturation 98 on room air. HEENT: Head normocephalic. No trauma. PERRLA. Neck: Supple. No JVD. No masses. Central trachea. Chest: Some crepitus at the right base. He has a dressing that looks clean. No wheezing. Abdomen: Soft, nontender, nondistended. No hepatosplenomegaly. Extremities: No edema. No clubbing. No cyanosis. Neurological Examination: The patient is alert. He is oriented x2. He is following commands. He is not agitated. ASSESSMENT AND PLAN: 1. Sepsis due to right-sided empyema and hepatic abscess, status post right-sided chest tube placement and CT-guided drainage of the hepatic abscess. Surgery department and infectious disease department following this patient. There is no plan for surgery at this moment. If infectious disease department agrees to discharge this patient, likely, I will discharge this patient to a long-term acute care tomorrow but I will wait for their recommendations. 2. Right lung empyema. As per #1. 3. Hepatic abscess. As per #1. 4. Acute encephalopathy. Likely, this is his baseline. He has a baseline dementia and apparently a possible bipolar disorder. 5. Hypertension, stable. 6. Chronic obstructive pulmonary disease exacerbation, resolved. Already treated. cc: Walter Romo MD
[2019-01-15] MEDS: MYCAMINE 100 MG in NS 100 ML IV SCH (18:58)
[2019-01-15] MEDS: LIPITOR PO SCH (21:28)
[2019-01-15] MEDS: LAMICTAL PO SCH (21:28)
[2019-01-16] MEDS: MERREM 1 GM in NS 50 ML IV SCH ×3 (03:45→18:06)
--- NOTE | 2019-01-16 05:04 | GENERAL SURGERY PROGRESS NOTE ---
DATE: 01/14/2019 SUBJECTIVE: Feels okay. Still on supplemental O2. Chest x-ray is somewhat improved. No fevers and no tachycardia overnight. OBJECTIVE: General: He is alert. Chest: He has a dressing on his right chest. Abdomen: His abdomen is soft, nontender, and nondistended. White count is 3 and hematocrit 35. I have reviewed his chest x-ray. ASSESSMENT AND PLAN: This is a gentleman with a liver and lung abscess. His chest x-ray does seem to be improving. There is some question of whether he will require decortication. I think given his clinical improvement we will continue to monitor. He also has had aspiration of fluid collection in the liver. We will continue to monitor him closely. cc: Fatimah Garay MD
[2019-01-16] MEDS: PRILOSEC PO SCH (06:10)
[2019-01-16] MEDS: LOVENOX SUBQ SCH (06:10)
--- NOTE | 2019-01-16 07:23 | Diag Imaging Result Doc PS360 ---
EXAM: CHEST-1 VIEW INDICATION: SOB TECHNIQUE: One view COMPARISON: 01/15/2019 FINDINGS: Right PICC line is in stable position. The right middle lobe opacity suggesting atelectasis and/or pneumonia is stable. There is stable blunting of the right costophrenic angle suggesting pleural thickening versus loculated fluid. No new consolidation is identified. Cardiac silhouette is stable. IMPRESSION: Stable chest. Electronically signed by Chris Peck 01/16/2019 7:20 AM
--- NOTE | 2019-01-16 08:05 | GENERAL SURGERY PROGRESS NOTE ---
DATE: 01/16/2019 SUBJECTIVE: Reviewed images from the weekend. He did have a CT-guided aspiration. They removed 18 mL of fluid. Microbiology shows no growth at this point. There was some concern that he might need decortication on the right side in his lung. His chest x-ray seemed to be getting a little better although there was a report on CT scan of his abdomen that did show slight increase in the pleural effusion. The patient reports that he is having a little bit of difficulty breathing, although he is saturating 98% on room air. OBJECTIVE: The patient is currently afebrile.Vital Signs: Stable. General: No acute distress. HEENT: Normocephalic, atraumatic. Pupils equal, round, reactive to light. Mucous membranes moist. Oropharynx benign. Neck: Supple, trachea midline. Cardiovascular: Regular rate and rhythm. Lungs: Some decreased sounds on the right but no increased labored breathing. Abdomen: Soft, nontender, nondistended. Extremities: Moves all extremities. Neurologic: Grossly intact. Skin: No signs of jaundice. Vascular: All extremities perfused. LABORATORY: Most recent white blood cell count was on 01/14, which showed a white blood cell count 3. ASSESSMENT AND PLAN: A 73-year-old gentleman with right pleural effusion, right lung fluid. 1. Right pleural effusion. At this time, some imaging suggested it is improving. He has had it drained several times without much show of growth. The patient does report some shortness of breath, but I think he might have underlying lung disease. He looks like he is oxygenating at least well on room air. There was some concern that he might need decortication. At this point we will defer to Pulmonary and an Infectious Disease as to if they want me to proceed with decortication. I think at this point, patient seems to be doing relatively okay. The other option may be getting a repeat CT scan to see how much fluid it there is not a lot of fluid, may not gain a whole bunch as far as pulmonary function by doing the decortication but again we will defer to infectious disease and Pulmonary. 2. Liver fluid collection. At this time a little bit of fluid drained. It does not have any growth on microbiology. We will continue to monitor. cc: Sabino So MD
[2019-01-16 08:09] LABS: BASO# 0.02 X1000 (0.0-0.2); BASO% 0.4 % (0.0-0.8); EOS# 0.43 X1000 (0.0-0.7); EOS% 7.9 % (0.0-10.0); HEMATOCRIT 32.4 % (42.0-52.0); HEMOGLOBIN 9.8 g/dL (14.0-18.0); IMM GRAN# 0.05 X1000 (0.0-0.04); IMM GRAN% 0.9 % (0.0-0.5); LYMPH# 1.33 X1000 (1.2-3.4); LYMPH% 24.4 % (20.5-51.1); MCH 26.1 PG (27-31); MCHC 30.2 g/dL (33-37); MCV 86.4 FL (81-99); MONO# 0.52 X1000 (0.11-0.59); MONO% 9.5 % (1.7-9.3); MPV 10.3 FL (7.4-10.4); NEUT% 56.9 % (42.2-75.2); PLT 293 X1000 (130-400); RBC 3.75 XMIL (4.7-6.1); RDW 21.5 % (11.5-14.5); WBC 5.45 X1000 (4.8-10.8)
[2019-01-16 08:22] LABS: AGAP 12; BUN 19 mg/dL (8-22); CALCIUM 9.3 mg/dL (8.8-10.2); CHLORIDE 108 mmol/L (98-107); COSMO 290; ESTIMATED GFR > 60; GLUCOSE 115 mg/dL (70-104); POTASSIUM 4.1 mmol/L (3.5-5.1); SODIUM 144 mmol/L (136-145); TCO2 24 mmol/L (25-35)
--- NOTE | 2019-01-16 09:47 | Diag Imaging Result Doc PS360 ---
EXAM: CT THORAX W/O CONTRAST 01/16/2019 HISTORY: SOB TECHNIQUE: This exam was performed using automated exposure control, adjustment of mA or kV according to patient size, and/or use of iterative reconstruction technique. COMMENT: The current examination is compared with the previous study of 01/11/2019. There are loculated pleural fluid collections on the right. There is a thick-walled fluid collection present in the right subphrenic space or adjacent liver which is slightly smaller than it was at the time the previous study. There may be slightly more pleural fluid posterior medially than on the previous examination. Loculated fluid in the fissure has diminished slightly in volume. There are no abnormal fluid collections on the left. The visualized portions of the abdomen are stable in appearance otherwise. There are no acute bony abnormalities. There is a pulmonary nodule again noted in the superior segment of the right lower lobe. There is fibrosis and/or compressive atelectasis present in the right lower lobe similar in appearance to the previous study. There are emphysematous changes. IMPRESSION: Loculated pleural fluid on the right which may be slightly redistributed as described above. Slightly improved subphrenic/hepatic abscess. Otherwise unchanged since 01/11/2019. Electronically signed by Terrell Fuentes 01/16/2019 9:45 AM
[2019-01-16] MEDS: TOPROL XL PO SCH (10:04)
[2019-01-16] MEDS: ARICEPT PO SCH (10:04)
[2019-01-16] MEDS: TOPAMAX PO SCH ×2 (10:04→23:10)
[2019-01-16] MEDS: NAMENDA PO SCH ×2 (10:05→23:11)
[2019-01-16] MEDS: PRINIVIL PO SCH (10:06)
[2019-01-16] MEDS: THERA M PLUS PO SCH (10:06)
[2019-01-16] MEDS: PATIENT'S OWN MED PO SCH (10:11)
[2019-01-16] MEDS: DUONEB (A & A) INH PRN ×3 (11:32→21:47)
--- NOTE | 2019-01-16 13:32 | PROGRESS NOTE ---
DATE: 01/16/2019 SUBJECTIVE: The patient resting comfortably in bed, no acute events overnight. CT of the chest today showed a loculated pleural fluid on the right which may be slightly redistributed, slightly improved subphrenic/hepatic abscess otherwise unchanged, seen 01/11/2019. OBJECTIVE: Vital Signs: Temperature 97.5 degrees, pulse 83, respiratory rate 17, blood pressure 144/75, oxygen saturation 99 on room air. HEENT: Head normocephalic. No trauma. PERRLA. Neck: Supple. No JVD. No masses. Central trachea. Chest: Some crepitus at the right base. He has a dressing that looks clean. No wheezing. Abdomen: Soft, nontender, nondistended. No hepatosplenomegaly. Extremities: No edema. No clubbing. No cyanosis. Neurological: The patient is alert. He is oriented x2. He is following commands. No focal deficits. LABORATORY DATA: WBC 5.4, hemoglobin 9.8, hematocrit 32.4, platelets 293,000. Sodium 144, potassium 4.1, chloride 108, bicarbonate 24, BUN 19, creatinine is 1, glucose 115, calcium 9.3. ASSESSMENT AND PLAN: 1. Sepsis due to right-sided empyema and hepatic abscess, status post right-sided chest tube placement and CT-guided drainage of the hepatic abscess. Surgery department and Infectious Disease department following this patient. There is a possibility of doing a decortication of the right empyema/fluid collection on this patient. We just had a CT scan done today. Pulmonary department will evaluate the patient and the images to decide if he can go with medical treatment or if we need to do some more invasive procedures. 2. Right lung empyema. As per #1. 3. Hepatic abscess as per #1. 4. Acute encephalopathy, likely this is his baseline now. He has a baseline dementia and apparently a possible bipolar disorder. 5. Hypertension, stable. 6. Chronic obstructive pulmonary disease exacerbation, resolved, already treated. cc: Walter Romo MD
[2019-01-16] MEDS: MYCAMINE 100 MG in NS 100 ML IV SCH (20:12)
--- NOTE | 2019-01-16 20:14 | INFECTIOUS DISEASE PROGRESS NO ---
DATE: 01/16/2019 PRESENT ILLNESS: Mr. Sherman has right-sided loculated pleural fluid as well as a hepatic abscess, which is a little smaller on CT today. MEDICATIONS: He is on day 5 of meropenem 1 g IV every 8 hours and micafungin 100 mg IV daily. PHYSICAL EXAMINATION: Vital Signs: Temperature is 97.5 degrees, pulse rate 85, respiratory rate 16, blood pressure 137/70, O2 saturation 99% on room air. General: This is a chronically ill- appearing, elderly gentleman. He is lying in bed, confused but pleasant. HEENT: Atraumatic, normocephalic. Oral mucous membranes are pink and moist. Conjunctivae are pale. Neck: Supple. Trachea is midline. Cardiovascular: Heart rate is regular. Respiratory: Lung sounds are clear in the upper lobes and the left lower lobe with crackles noted to the right middle and lower lobes. Integumentary: There is a PICC line in place to his right upper arm. The site is without edema, erythema or drainage. Abdomen: Soft, flat, nontender. Bowel sounds are active. Neurologic: He is oriented to person only, able to move all her extremities in the bed. Generalized weakness is noted. LABORATORY AND X-RAY: Today his white count is 5.45, hemoglobin 9.8, platelet count 293,000, creatinine is 1, estimated GFR is greater than 60. Abscess culture has shown no growth on the final report. CT of his chest today shows a loculated pleural fluid on the right which may be slightly redistributed and a slightly improved hepatic abscess. ASSESSMENT AND PLAN: Mr. Sherman has a loculated pleural fluid on the right side that has been drained on this admission, as well as a hepatic abscess which has gotten a little better. Dr. Feldman has spoken with Dr. So about the possibility of another procedure to the right loculated pleural fluid. At this point we will continue his meropenem and micafungin. Dr. So may also do a decortication. These plans have been discussed with and recommended by Dr. Feldman. COMORBIDITIES: Include he is elderly with dementia and Parkinson's disease, COPD, and history of tobacco abuse, alcohol abuse and illicit drug use. Dictated by ZA Iqbal for Ti Feldman MD This chart was documented by, ZA Iqbal and accurately reflects the services performed, treatment plan and medical decisions as attested by the providers signature Ti Feldman MD. cc: Ti Feldman MD [facility]
[2019-01-16] MEDS: LAMICTAL PO SCH (23:10)
[2019-01-16] MEDS: LIPITOR PO SCH (23:11)
[2019-01-17] MEDS: MERREM 1 GM in NS 50 ML IV SCH ×3 (01:57→17:17)
[2019-01-17] MEDS: PRILOSEC PO SCH (06:30)
[2019-01-17] MEDS: LOVENOX SUBQ SCH (06:30)
[2019-01-17 07:26] LABS: BASO# 0.03 X1000 (0.0-0.2); BASO% 0.5 % (0.0-0.8); EOS# 0.48 X1000 (0.0-0.7); EOS% 7.8 % (0.0-10.0); HEMOGLOBIN 9.4 g/dL (14.0-18.0); IMM GRAN# 0.04 X1000 (0.0-0.04); IMM GRAN% 0.7 % (0.0-0.5); LYMPH# 1.25 X1000 (1.2-3.4); LYMPH% 20.4 % (20.5-51.1); MCH 26.5 PG (27-31); MCHC 30.3 g/dL (33-37); MCV 87.3 FL (81-99); MONO# 0.61 X1000 (0.11-0.59); NEUT# 3.72 X1000 (1.4-6.5); NEUT% 60.6 % (42.2-75.2); PLT 343 X1000 (130-400); RBC 3.55 XMIL (4.7-6.1); RDW 21.8 % (11.5-14.5); WBC 6.13 X1000 (4.8-10.8)
--- NOTE | 2019-01-17 07:46 | Diag Imaging Result Doc PS360 ---
CHEST-1 VIEW - 01/17/2019 INDICATION: SOB COMPARISON: 01/16/2019 FINDINGS: Stable right PICC line. Stable moderate opacification in the right lung base consistent with pleural effusion. No new infiltrates. Heart size remains normal. Pulmonary vascularity is normal. IMPRESSION: No change from prior. Electronically signed by Devang Gaona 01/17/2019 7:44 AM
[2019-01-17 07:51] LABS: AGAP 13; BUN 19 mg/dL (8-22); CALCIUM 8.7 mg/dL (8.8-10.2); CHLORIDE 106 mmol/L (98-107); COSMO 286; CREATININE 0.7 mg/dL (0.7-1.2); ESTIMATED GFR > 60; GLUCOSE 114 mg/dL (70-104); POTASSIUM 3.5 mmol/L (3.5-5.1); SODIUM 142 mmol/L (136-145); TCO2 23 mmol/L (25-35)
--- NOTE | 2019-01-17 07:55 | GENERAL SURGERY PROGRESS NOTE ---
DATE: 01/17/2019 SUBJECTIVE: The patient seems to be doing okay, although he feels a little bit crummy. He did not really give any specifics beyond that. OBJECTIVE: Vital Signs: The patient is currently afebrile. His vital signs are stable. General Examination: No acute distress. HEENT: Normocephalic, atraumatic. Pupils equal, round, reactive to light. Mucous membranes moist. Oropharynx benign. Neck: Supple. Trachea midline. Cardiovascular: Regular rate and rhythm. Lungs: Some coarse sounds noted on the right side, maybe some rhonchi but no increased labored breathing. Abdomen: Soft, nontender, nondistended. Extremities: Moves all extremities. Neurologic: Grossly intact. Skin: No signs of jaundice. Vascular: All extremities perfused. Laboratory: Reviewed from yesterday. White blood cell count is normal, hematocrit is 32, platelet count 293,000. CT scan from yesterday reviewed. Overall, it looks like there is improvement to me. ASSESSMENT AND PLAN: A 73-year-old with right pleural effusion and liver fluid. 1. Right pleural effusion. At this time, a CT scan showed some decrease. It may be loculated. I had a discussion with Dr. Feldman with infectious disease last night about options. I had a discussion this morning with the patient. I offered him a video-assisted thoracoscopic surgery with decortication but told him that he would to have a chest tube in afterwards. He does not want to go that route. Given this and given the fact that there was a slight decrease overall the fluid, I do not think it is unreasonable to hold off and monitor him. He is not in any kind of extremis with this so I suspect we can just monitor him and get a CT scan down the road to see what the fluid looks like. 2. Liver fluid collection. At this time, it seems to be doing about the same. It has never grown anything. I would recommend just monitoring it. cc: Sabino So MD
[2019-01-17] MEDS: ARICEPT PO SCH (09:38)
[2019-01-17] MEDS: NAMENDA PO SCH ×2 (09:38→21:50)
[2019-01-17] MEDS: THERA M PLUS PO SCH (09:38)
[2019-01-17] MEDS: PATIENT'S OWN MED PO SCH (09:38)
[2019-01-17] MEDS: TOPAMAX PO SCH ×2 (09:38→21:50)
[2019-01-17] MEDS: PRINIVIL PO SCH (09:38)
[2019-01-17] MEDS: TOPROL XL PO SCH (09:38)
--- NOTE | 2019-01-17 17:41 | PROGRESS NOTE ---
DATE: 01/17/2019 SUBJECTIVE: The patient reports feeling fine. He is more alert and awake today. OBJECTIVE: Vital Signs: Temperature 97.9 degrees, heart rate 62, respiratory rate 18, blood pressure 111/56, O2 saturation 97% on room air. General Examination: This is a chronically ill- appearing 73-year-old male, lying in bed, in no acute distress. Cardiovascular: S1, S2 heard. No murmurs, gallops, or rubs. Regular rate and rhythm. Respiratory: Some rhonchi and crackles in right base. wound looks clean and dry. There is no wheezing noted. Abdomen: Soft, nontender to palpation. Nondistended. Bowel sounds present. No organomegaly. Extremities: No clubbing, cyanosis, or edema. Peripheral pulses present in both legs. Neurological: Patient is alert and oriented x2. Following commands. Speech is coherent. No focal deficits noted. LABORATORY DATA: White cell count 6.13, hemoglobin 9.4, hematocrit 31.0 platelets 343. Normal BMP. ASSESSMENT AND PLAN: 1. Sepsis due to right-sided empyema and hepatic abscess status post right-sided chest tube placement and CT-guided drainage of the hepatic abscess. Dr. So from General Surgery is following this patient. Recent CT scan of the chest shows some decrease of that right pleural effusion. The patient was offered apparently this morning video assisted thoracoscopic bronchoscopic surgery with decortication, but patient refused. Dr. So thinks it is not unreasonable to continue with antibiotics. We will talk with Dr. Feldman about antibiotics, and although oral antibiotics can be used, I would rather prefer to use IV antibiotics. That will be much better. Currently, this patient is on meropenem day #6 of treatment 1 g IV q.8 h., and also he is getting micafungin as well. Pulmonology is also following this patient. We will follow recommendations. 2. Right lung empyema. As per condition #1. 3. Hepatic abscess. Aware. 4. Acute encephalopathy. I think this patient is more awake today. We will continue to monitor. 5. Hypertension, stable. We will continue with home medication. 6. Chronic obstructive pulmonary disease exacerbation, resolved. DISPOSITION: We will continue to monitor this patient closely. cc: MD TONYA Loving
[2019-01-17] MEDS ORDERED: AUGMENTIN PO SCH (18:00)
[2019-01-17] MEDS ORDERED: MYCAMINE 100 MG in NS 100 ML IV SCH (18:00)
[2019-01-17] MEDS: LAMICTAL PO SCH (21:50)
[2019-01-17] MEDS: LIPITOR PO SCH (21:50)
[2019-01-18] MEDS: MERREM 1 GM in NS 50 ML IV SCH ×2 (02:37→10:11)
[2019-01-18] MEDS: LOVENOX SUBQ SCH (06:34)
[2019-01-18] MEDS: PRILOSEC PO SCH (06:34)
--- NOTE | 2019-01-18 07:44 | Diag Imaging Result Doc PS360 ---
EXAM: CHEST-1 VIEW INDICATION: SOB TECHNIQUE: One view COMPARISON: 01/17/2019 FINDINGS: Right PICC line is in stable position. Opacification at the right lung base and the right upper lobe consistent with known loculated pleural fluid collections are unchanged. No new consolidation is identified. Cardiac silhouette is stable. IMPRESSION: Stable chest. Electronically signed by Chris Peck 01/18/2019 7:42 AM
[2019-01-18] MEDS: PRINIVIL PO SCH (10:07)
[2019-01-18] MEDS: TOPROL XL PO SCH (10:07)
[2019-01-18] MEDS: ARICEPT PO SCH (10:07)
[2019-01-18] MEDS: PATIENT'S OWN MED PO SCH (10:07)
[2019-01-18] MEDS: NAMENDA PO SCH (10:07)
[2019-01-18] MEDS: THERA M PLUS PO SCH (10:07)
[2019-01-18] MEDS: TOPAMAX PO SCH (10:07)
--- NOTE | 2019-01-18 11:22 | INFECTIOUS DISEASE PROGRESS NO ---
DATE: 01/18/2019 ADDENDUM: The patient today is going to be discharged to an LTAC. There he will continue with meropenem and micafungin for 3 weeks and have a repeat CT scan. If the repeat CT scan shows that there is improvement, but still fluid remains, than the plan is for the patient to have another 3 weeks of meropenem and micafungin and then repeat the CT scan at that time. All of this will be done while the patient is at the LTAC, and he will be under the care of the physician at the LTAC. cc: Ti Feldman MD
--- NOTE | 2019-01-18 12:04 | DISCHARGE SUMMARY ---
ADMISSION DATE: 12/20/2018 DISCHARGE DATE: 01/06/2019 CONSULTATIONS: 1. Dr. Ryan with Pulmonology. 2. Dr. Joby Willis with General Surgery. 3. Dr. Ti Feldman with Infectious Disease. PRIMARY CARE PROVIDER: Dr. Araujo. PERTINENT PROCEDURES: 1. Head CT negative. 2. Chest CT. Pleural effusion bilaterally, particularly on the right where there is considerable loculation, hepatic abscesses versus necrotic tumor, compression atelectasis and questionable pneumonia. 3. Abdominal and pelvis CT. Large right hepatic lesion which may be an abscess, severe atherosclerosis, constipation, possible fecal impaction. 4. Right chest tube placement on to 12/24/2018 for loculated right empyema performed by Dr. Joby Willis. 5. Chest CT. Significant improvement from prior. Persistent pleural effusion posteriorly, improved essentially, Fluid mass on the dome of the liver. 6. Abscess drainage CT. Successful and uncomplicated. 7. Placement of drains within the hepatic fluid collection and the dominant remaining pleural effusion collection at the right lung base. 8. CT of chest and abdomen. Interval decrease in the size of complex loculated pleural effusion collection on the right and resolution of the smaller simple pleural fluid collection on the left. Decrease in size of the right hepatic lobe fluid collection consistent with abscesses as a result of interval CT-guided drainage. 9. Head CT. No hemorrhage, no injury. 10. Chest CT, stable. Interval slight increase in the size of benign hepatic lobe mass. DISCHARGE DIAGNOSES: 1. Sepsis secondary to right lower lobe pneumonia, empyema, right-sided hepatic abscesses, status post right-sided chest tube, right-sided posterior pleural space drain and a right-sided hepatic lobe drain. All have been removed since 12/31/2018. The patient continues on IV antibiotics with Zosyn and p.o. antibiotics with Zyvox per ID recommendations for worsening leukocytosis. He will continue on antibiotics per Dr. Feldman' recommendation. The patient was initially going to be discharged home on 01/06/2019. However, he did have a re-collection of fluid and was kept. General Surgery has gone over his options with him in regard to the right effusion. They did discuss a video-assisted thoracoscopic surgery with decortication. It was explained to the patient that he would have to have a chest tube again afterwards. He did not want to go that route. He does have a decrease in overall fluid, so Dr. So felt it was reasonable to hold off and monitor him for now and have a followup CT scan down the road to see what his fluid levels look like. His liver fluid collection appears to be about the same and has never grown any organisms, and again does recommend monitoring. 2. Acute chronic obstructive pulmonary disease exacerbation, resolved. 3. Acute encephalopathy resulting in a fall at nighttime. Patient has had numerous head CTs that showed no acute abnormality. Believed to be a likely combination of baseline dementia, history of bipolar mood disorder, and hospital-acquired delirium. The patient is back to his normal baseline. We will continue his home medications. 4. Essential hypertension. We will continue metoprolol and lisinopril. He did have an EKG that showed intermittent ST-segment mild elevation and depression. However, troponins have been unremarkable. EKG showed a normal EF without regional wall motion abnormality. HOSPITAL COURSE: Briefly, Mr. Sherman is a 73-year-old male with a past medical history of hypertension, hyperlipidemia, dementia, COPD, resident of [facility]. He was brought to the ED with shortness of breath, coughing and worsening confusion for several days prior to his admission. He was admitted for sepsis and treated for right lower lobe pneumonia as well as COPD exacerbation. He had a negative head CT. He had a followup CT of his chest and abdomen that showed continue right lower lobe pneumonia as well as an empyema and a right-sided hepatic abscess. General Surgery and Infectious Disease was brought on board. He did receive a chest tube as well as a right-sided posterior pleural space drain and a right- sided hepatic lobe drain. He has remained on IV and p.o. antibiotics throughout his admission. His acute encephalopathy has resolved. He is back to his normal baseline. Again, felt that his altered mental status was secondary to a combination of dementia, bipolar mood disorder, and hospital- acquired delirium. The patient did have some fluid collection around his liver as well as his right pleural effusion. This has remained stable. General Surgery did discuss with him a VATS procedure that would require a chest tube afterwards, the patient did not want to go that route. Dr. So felt that it was reasonable to hold off for nail and to continue to monitor him with scans. We have discussed with him long-term care placement because he needs 3 more weeks of IV antibiotics with meropenem and micafungin. That will be set up by Dr. Feldman, so he will be discharged to LTAC today. VITAL SIGNS: At time of discharge, temperature is 97.6 degrees, heart rate 87, respirations 16, blood pressure 135/82, O2 is 99% on room air. DISCHARGE DIET: Healthy heart with Ensure Chocolate and Vanilla, each meal. TRANSFER MEDICATIONS: 1. Micafungin and meropenem IV per Dr. Feldman. 2. Seroquel 12.5 mg p.o. at bedtime. 3. DuoNeb 3 mL inhaled q.6 hours p.r.n. 4. Lovenox 40 mg subcutaneous daily. 5. Haldol 1 mg IV q.4 hours p.r.n. 6. Dilaudid 0.5 mg IV q.4 hours p.r.n. 7. Lisinopril 20 mg p.o. daily. 8. Calmoseptine to sacrum topical p.r.n. 9. Metoprolol-XL 50 mg p.o. daily. 10. Prilosec 40 mg p.o. daily. 11. Lipitor 40 mg p.o. at bedtime. 12. Lamictal 50 mg p.o. at bedtime. 13. Tylenol 650 mg p.o. q.8 hours p.r.n. 14. Aricept 10 mg p.o. daily. 15. Namenda 10 mg p.o. b.i.d. 16. Thera M Plus 1 each p.o. daily. 17. Rexulti 4 mg as directed. 18. Topamax 25 mg p.o. b.i.d. FOLLOWUP: Mr. Sherman is being discharged to LT in [place] where he will continue on IV antibiotics. He will follow up with Dr. Ti Feldman in 3 weeks after his IV antibiotics, as well as continue to follow up with General Surgery for repeat scans. He can return to the ED or call 911 for any worsening of symptoms. Dictated by ZA Post for Merritt Moscoso MD Addendum: Patient seen and examined by myself. Agree with ZA note. It reflects my assessment and plan. Patient is being discharged in stable condition. Patient is going to LTAC. He will be seen by Dr. Feldman from ID in three weeks. cc: MD Joby Loving MD Mamoun I. Najjar, MD Leroy F. Harris, MD Matthew L. Figh, MD Dr. Jindal MTDD
[2019-01-18 12:05] VITALS: BP 112/49
== END 2019-01-18 16:17 | DRG 853 ==
LOC: SUPCPDRO → ED 20:35 → 4N 23:57 → SUATTDRO 23:57 → ICU 12-23 12:54 → 3N 12-31 16:57
PROVIDERS: ATTEND Internal Medicine
CPT/HCPCS: 32557; 36569; 49041; 49405; 49406; 70450; 71010; 71045; 71250; 71260; 71270; 74160; 74170; 74177; 80048; 80053; 81001; 82150; 82550; 82553; 82565; 82805; 82945; 82948; 83605; 83615; 83735; 83986; 84157; 84439; 84443; 84484; 85025; 85027; 85610; 85730; 86480; 86701; 87015; 87040; 87070; 87075; 87088; 87102; 87116; 87147; 87205; 87206; 87275; 87276; 87389; 87804; 88112; 89051; 93005; 93010; 93306; 94640; 94660; 94760; 94761; 94762; 96361; 96365; 96367; 97110; 97116; 97162; 97530; 99285; A9270; C9113; J0456; J0696; J1170; J1630; J1650; J1956; J2020; J2185; J2248; J2250; J2370; J2543; J2920; J2930; J3370; J3480; J7030; J7040; J7050; Q9967; S0164; XXXXX